=== PATIENT | female | born 1950 | race Caucasian/White ===

== ENCOUNTER 2024-12-20 15:55 | Inpatient (IN) ==
[2024-12-20] MEDS ORDERED: SODIUM CHLORIDE 0.9% 100 ML IV PRN ×2 (16:28→17:59)
--- NOTE | 2024-12-20 16:33 | Electrocardiogram Report ---
Test Reason : Blood Pressure : */* mmHG Vent. Rate : 75 BPM Atrial Rate : 75 BPM P-R Int : 246 ms QRS Dur : 88 ms QT Int : 400 ms P-R-T Axes : 44 1 1 degrees QTcB Int : 446 ms Sinus rhythm with 1st degree A-V block T-wave inversion in Anterior leads , consider ischemia Abnormal ECG No previous ECGs available Confirmed by Everardo Osman ([id number]) on 12/20/2024 4:33:19 PM Referred By: Confirmed By: Everardo Osman
[2024-12-20 16:37] LABS: Basophils # (auto) 0.02 K/uL (0.00-0.20); Basophils % (auto) 0.6 %; Eosinophils # (auto) 0.08 K/uL (0.00-0.50); Eosinophils % (auto) 2.3 %; Hematocrit (blood only) 24.2 % (37.0-47.0); Hemoglobin 7.3 g/dl (12.0-16.0); Immature Granulocytes # (auto) 0.01 K/uL (0.01-0.20); Immature Granulocytes % (auto) 0.3 %; Lymphocytes # (auto) 0.58 K/uL (1.20-3.40); Lymphocytes % (auto) 16.6 %; Mean Corpuscular Hemoglobin 26.9 pg (25.0-34.0); Mean Corpuscular Hgb Conc 30.2 g/dL (32.0-36.0); Mean Corpuscular Volume 89.3 fL (80.0-100.0); Mean Platelet Volume 9.5 fL (9.4-12.4); Monocytes % (auto) 5.7 %; Neutrophils % (auto) 74.5 %; Platelet Count 174 K/uL (130-400); RDW Coefficient of Variation 17.9 % (11.5-14.5); RDW Standard Deviation 57.6 fL (36.4-46.3); Red Blood Count 2.71 M/uL (4.20-5.40); White Blood Count 3.49 K/ul (4.8-10.8)
[2024-12-20 16:58] LABS: Albumin Globulin Ratio 1.1 (0.9-2); Albumin Level 3.7 gm/dl (3.4-5.0); BUN Creatinine Ratio 19.2 (10-20); Bilirubin,Total 0.6 mg/dl (0.2-1.0); Calcium 8.8 mg/dl (8.6-10.3); Creatinine Clr Calc Pharmacy 29.7 ml/min; Globulin 3.5 gm/dl (2.5-4.0); Potassium 3.8 mmol/L (3.5-5.1); Total Protein 7.2 gm/dl (6.0-8.3)
[2024-12-20 16:59] LABS: Polychromasia 1+; Tear Drop Cells 1+
[2024-12-20 17:04] LABS: Troponin I High Sensitivity 3.9 pg/ml (0-14)
[2024-12-20 17:14] LABS: INR 1.1 (0.9-1.1); Partial Thromboplastin Ratio 0.9; Partial Thromboplastin Time 25 Seconds (21-31); Prothrombin Time 11.4 Seconds (9.0-12.0)
--- NOTE | 2024-12-20 17:29 | Emergency Department Note ---
Impression & Plan Severe anemia, SOB (shortness of breath) ED Provider Note NAME: BRIONNA MEREDITH AGE: 74 SEX: Female INFORMANT: Patient ED PROVIDER(S): Werner Morales MD CHIEF COMPLAINT: Shortness of breath PLAN: Disposition: Admitted Outpatient prescription management: none Referral: None MEDICAL DECISION MAKING: Patient presented because of low hemoglobin. This was confirmed. Patient was consented for packed red blood cell transfusion. She has a borderline BNP but cardiac troponin negative. ECG did reveals anterior T wave inversion. Patient does not have any chest pain. Her symptoms are mostly with exertion and she notes that is increasing. 1 unit of packed red blood cells ordered after patient consented. Consultation was made with the [facility] service. Patient was evaluated in the ER and admitted for further management. Care/management discussed with: ED case management Level of care consideration(s): After review of the information above and other included data, I feel the patient requires escalation of care to admission Triage Nursing notes: reviewed and agree them. Vital Signs: reviewed and remarkable for hypertension Additional History obtained from: none Chronic Medical/Social Conditions affecting care: CKD Prior/ Outside/ External records reviewed: none Differential Diagnosis: Infection, dehydration, metabolic abnormality, hypo/hyperglycemia, electrolyte disturbance, anemia, hypoxia, cardiac sources, intracerebral event, toxicologic, neurologic, as well as other pathologies. Diagnostics, independently interpreted by me: ECG: Twelve-lead ECG was sinus rhythm first-degree block. Anterior T wave inversion. RSR prime pattern present. Rate 75 bpm. Cardiac Monitoring: Cardiac monitoring ordered by me: The patient was placed on continuous cardiac monitoring and observed. It revealed a sinus rhythm at 82 bpm. Medical decision rules: none Imaging studies: Chest x-ray done as an outpatient reviewed and reveals some mild CHF without evidence of pneumothorax or pneumonia HPI: 74 year old Female arrives for evaluation of SOB. This started several months ago and is gradual. PCP found patient to be anemic and had heme positive stool. Patient was on xarelto for PE from 15 yrs ago and this was stopped 09/10. The patient also notes the following associated symptoms, LOVE,, chills, generalized weakness, occasional neck/jaw cramping. The patient has found no relieving factors. Current pain is rated as 0/10. Pt had outpatient labs done and found to be more anemic with hgb dropping from 8.2 to 7.0 Pt denies LOC, headache, fevers, chills, diaphoresis, visual changes, chest pain, nausea, vomiting, abdominal pain, back pain, melena, hematochezia, urinary symptoms, numbness, weakness, lymphadenopathy, rash, or other complaints. PAST MEDICAL HISTORY: See Below, PE, CKD PAST SURGICAL HISTORY: See Below, SOCIAL HISTORY: See Below, retired HOME MEDICATIONS: See Below ALLERGIES: See Below VITALS: See Below PHYSICAL EXAMINATION: GENERAL: Awake, alert, well-appearing, in no distress HENT: Normocephalic, atraumatic. Oropharynx unremarkable. EYES: Pale conjunctiva. Sclera non-icteric. NECK: Inspection normal. Non-tender. Supple. No nuchal rigidity. FROM. No masses. RESPIRATORY: Clear to auscultation. No wheezes. No rales. Normal respiratory effort. CARDIAC: Normal rate. Normal rhythm. No murmurs. No rubs. Extremities warm and well perfused. Pulses equal. No JVD. GI: Soft, non-distended. No tenderness to palpation. No rebound or guarding. No masses. RECTAL: Deferred. MUSCULOSKELETAL: Atraumatic. Chest examination reveals no tenderness. The back is symmetrical on inspection without obvious abnormality. There is no CVA tenderness to palpation. No joint edema. LOWER EXTREMITIES: Calves are equal size bilaterally and non-tender. No edema. No discoloration. NEURO: Normal sensorium. No sensory or motor deficits noted. SKIN: No rash or jaundice noted. PROCEDURES: none CRITICAL CARE: none OBSERVATION NOTE: none Past Med/Surg History Problem List (Updated 12/21/24 @ 17:06 by Eliazar Silvestre MD) Bone lesion Iron deficiency Dyspnea Blood loss anemia SOB (shortness of breath) (Acute) Severe anemia (Acute) SOB (shortness of breath) Encounter for pre-operative examination Heme positive stool Anemia Hypertension CKD (chronic kidney disease) Medical History SOB (shortness of breath) on exertion Factor 5 Leiden mutation, heterozygous per pt., tested after having pulm. embolism in past Arthritis Urinary incontinence Hx pulmonary embolism aprox 15 years ago- had pos genetic testing - on xarelto- , - stopped in aug 2024 -no clots since Hx of flexible sigmoidoscopy Anemia Hypertension CKD (chronic kidney disease) Heme positive stool Surgical History Hx of cardiac catheterization x2 "many years ago" [place]- no ID- no stents [place]- no ID- no stents last one found showed slight blockages but told it was due to age. no longer sees cardio (can't remember name) History of surgery on lower extremity (2016) hematoma removed, after fall Hx of tonsillectomy (1957) Hx of laparoscopy x2, 40 years ago Family History Father Stroke Mother Breast cancer Colorectal cancer Denies family history of Crohn's disease Ulcerative colitis Social History (Updated 09/16/24 @ 15:03 by Negro Zee MA) Smoking Status: Never smoker Second Hand Exposure: No; Do You Dip or Chew Tobacco: No; Hx Alcohol Use: No Hx Substance Use: No Preferred Language: Malawian Communication Ability: Effective Livestock Counter Required: No Beliefs That Will Affect Care: None Current Living Situation: Alone Current Living Situation Comment: Lives alone with cat Other Information That Helps Us Care for You: No Feels Safe at Home: Yes Safety Concerns: Feels Safe At This Time Assistive Devices: Cane Allergies Allergies Allergy/AdvReac Type Severity Reaction Status Date / Time No Known Allergies Allergy Verified 12/20/24 18:03 Home Meds Home Medications Medication Instructions Recorded Confirmed cholecalciferol (vitamin D3) 50 50 mcg PO DAILY 09/16/24 12/20/24 mcg (2,000 unit) capsule folic acid 1 mg tablet 1 mg PO DAILY 09/16/24 12/20/24 losartan 50 mg tablet 50 mg PO QAM 09/16/24 12/20/24 acetaminophen 650 mg 1,300 mg PO Q12H PRN Pain 12/10/24 12/20/24 tablet,extended release cyanocobalamin (vitamin B-12) 5,000 mcg sublingual DAILY 12/20/24 12/20/24 5,000 mcg sublingual tablet (Vitamin B-12) Results & Data (ED) Vital Signs Vital Signs - 24 hr 12/20/24 16:05 12/20/24 16:06 12/20/24 16:49 Temperature 36.8 C Temperature Source Temporal Artery Scan Pulse Rate 77 77 Pulse Rate [Left Brachial] Pulse Rhythm [Left Brachial] Pulse Strength [Left Brachial] Respiratory Rate 20 Respiratory Effort / Characteristics Non-Labored Respiratory Depth Normal Respiratory Pattern Blood Pressure 111/61 Blood Pressure [Right Arm] Blood Pressure Mean 77 Blood Pressure Mean [Right Arm] Blood Pressure Position [Right Arm] Pulse Oximetry 97 Oxygen Delivery Method Room Air Room Air Sepsis Recent Fever Within 48 Hours No Sepsis New/Unexplained Change in Mental Status No Sepsis Action Taken by Nursing No Action Required 12/20/24 17:55 12/20/24 19:30 12/20/24 20:00 Temperature 36.7 C 36.7 C Temperature Source Oral Oral Pulse Rate 73 76 Pulse Rate [Left Brachial] 73 Pulse Rhythm [Left Brachial] Regular Pulse Strength [Left Brachial] Normal Respiratory Rate 18 24 24 Respiratory Effort / Characteristics Non-Labored Respiratory Depth Normal Respiratory Pattern Regular Blood Pressure 165/64 H 147/89 H Blood Pressure [Right Arm] 165/64 H Blood Pressure Mean 97 108 Blood Pressure Mean [Right Arm] 97 Blood Pressure Position [Right Arm] Lying Pulse Oximetry 97 95 97 Oxygen Delivery Method Room Air Sepsis Recent Fever Within 48 Hours Sepsis New/Unexplained Change in Mental Status Sepsis Action Taken by Nursing 12/20/24 20:15 Temperature 36.7 C Temperature Source Oral Pulse Rate 75 Pulse Rate [Left Brachial] Pulse Rhythm [Left Brachial] Pulse Strength [Left Brachial] Respiratory Rate 23 Respiratory Effort / Characteristics Respiratory Depth Respiratory Pattern Blood Pressure 124/73 Blood Pressure [Right Arm] Blood Pressure Mean 90 Blood Pressure Mean [Right Arm] Blood Pressure Position [Right Arm] Pulse Oximetry 98 Oxygen Delivery Method Sepsis Recent Fever Within 48 Hours Sepsis New/Unexplained Change in Mental Status Sepsis Action Taken by Nursing Laboratory Data 12/21/24 06:30 12/21/24 06:30 Lab Results 12/20/24 12/20/24 12/20/24 Range/Units 16:20 16:45 17:00 WBC 3.49 L (4.8-10.8) K/ul RBC 2.71 L (4.20-5.40) M/uL Hgb 7.3 L (12.0-16.0) g/dl Hct 24.2 L (37.0-47.0) % MCV 89.3 (80.0-100.0) fL MCH 26.9 (25.0-34.0) pg MCHC 30.2 L (32.0-36.0) g/dL RDW Std Deviation 57.6 H (36.4-46.3) fL RDW Coeff of Norma 17.9 H (11.5-14.5) % Plt Count 174 (130-400) K/uL MPV 9.5 (9.4-12.4) fL Immature Gran % (Auto) 0.3 % Neut % (Auto) 74.5 % Lymph % (Auto) 16.6 % Major % (Auto) 5.7 % Eos % (Auto) 2.3 % Baso % (Auto) 0.6 % Neut # (Auto) 2.60 (1.40-6.50) K/uL Lymph # (Auto) 0.58 L (1.20-3.40) K/uL Major # (Auto) 0.20 (0.11-0.59) K/uL Eos # (Auto) 0.08 (0.00-0.50) K/uL Baso # (Auto) 0.02 (0.00-0.20) K/uL Immature Gran # (Auto) 0.01 (0.01-0.20) K/uL Polychromasia 1+ Tear Drop Cells 1+ PT 11.4 (9.0-12.0) Seconds INR 1.1 (0.9-1.1) APTT 25 (21-31) Seconds PTT Ratio 0.9 D-Dimer 4600 H* (0-500) ug/L FEU Sodium 140 (136-145) mmol/L Potassium 3.8 (3.5-5.1) mmol/L Chloride 110 H (98-107) mmol/L Carbon Dioxide 21 (21-32) mmol/L Anion Gap 9 (3-11) BUN 41 H (6-23) mg/dl Creatinine 2.13 H (0.6-1.2) mg/dl Est Cr Clr Drug Dosing 29.7 ml/min eGFR 23.71 BUN/Creatinine Ratio 19.2 (10-20) Glucose 148 H (70-99(Fasting)) mg/dl Calcium 8.8 (8.6-10.3) mg/dl Total Bilirubin 0.6 (0.2-1.0) mg/dl AST 13 (13-39) U/L ALT 6 L (7-52) U/L Alkaline Phosphatase 193 H (34-104) U/L Troponin I High Sens 3.9 (0-14) pg/ml B-Natriuretic Peptide 138 H (0-100) pg/ml Total Protein 7.2 (6.0-8.3) gm/dl Albumin 3.7 (3.4-5.0) gm/dl Globulin 3.5 (2.5-4.0) gm/dl Albumin/Globulin Ratio 1.1 (0.9-2) Blood Type O Negative Blood Type Recheck Antibody Screen NEGATIVE Crossmatch See Detail 12/20/24 Range/Units 17:15 WBC (4.8-10.8) K/ul RBC (4.20-5.40) M/uL Hgb (12.0-16.0) g/dl Hct (37.0-47.0) % MCV (80.0-100.0) fL MCH (25.0-34.0) pg MCHC (32.0-36.0) g/dL RDW Std Deviation (36.4-46.3) fL RDW Coeff of Norma (11.5-14.5) % Plt Count (130-400) K/uL MPV (9.4-12.4) fL Immature Gran % (Auto) % Neut % (Auto) % Lymph % (Auto) % Major % (Auto) % Eos % (Auto) % Baso % (Auto) % Neut # (Auto) (1.40-6.50) K/uL Lymph # (Auto) (1.20-3.40) K/uL Major # (Auto) (0.11-0.59) K/uL Eos # (Auto) (0.00-0.50) K/uL Baso # (Auto) (0.00-0.20) K/uL Immature Gran # (Auto) (0.01-0.20) K/uL Polychromasia Tear Drop Cells PT (9.0-12.0) Seconds INR (0.9-1.1) APTT (21-31) Seconds PTT Ratio D-Dimer (0-500) ug/L FEU Sodium (136-145) mmol/L Potassium (3.5-5.1) mmol/L Chloride (98-107) mmol/L Carbon Dioxide (21-32) mmol/L Anion Gap (3-11) BUN (6-23) mg/dl Creatinine (0.6-1.2) mg/dl Est Cr Clr Drug Dosing ml/min eGFR BUN/Creatinine Ratio (10-20) Glucose (70-99(Fasting)) mg/dl Calcium (8.6-10.3) mg/dl Total Bilirubin (0.2-1.0) mg/dl AST (13-39) U/L ALT (7-52) U/L Alkaline Phosphatase (34-104) U/L Troponin I High Sens (0-14) pg/ml B-Natriuretic Peptide (0-100) pg/ml Total Protein (6.0-8.3) gm/dl Albumin (3.4-5.0) gm/dl Globulin (2.5-4.0) gm/dl Albumin/Globulin Ratio (0.9-2) Blood Type Blood Type Recheck O Negative Antibody Screen Crossmatch Administered Medications Acetaminophen (Acetaminophen 325 Mg Tab) 650 mg PO Q4H PRN PRN Reason: Pain or Fever Stop: 01/19/25 21:51 Last Admin: 12/21/24 15:48 Dose: 650 mg Documented By: [facility] Cyanocobalamin (Cyanocobalamin (B-12) 2,500 Mcg Tablet) 5,000 mcg SL DAILY GUSTAVO Stop: 01/20/25 08:59 Last Admin: 12/21/24 09:04 Dose: 5,000 mcg Documented By: [facility] Folic Acid (Folic Acid 1 Mg Tab) 1 mg PO DAILY GUSTAVO Stop: 01/20/25 08:59 Last Admin: 12/21/24 09:05 Dose: 1 mg Documented By: [facility] Magnesium Hydroxide (Magnesium Hydroxide Susp 30 Ml Udc) 30 ml PO Q12H PRN PRN Reason: Constipation Stop: 01/19/25 21:51 Last Admin: 12/21/24 15:51 Dose: 30 ml Documented By: [facility] Rivaroxaban (Rivaroxaban 15 Mg Tab) 15 mg PO QDD GUSTAVO Stop: 01/20/25 14:29 Last Admin: 12/21/24 15:57 Dose: 15 mg Documented By: [facility] Vitamin D (Cholecalciferol 25 Mcg (1000 Units) Tab) 50 mcg PO DAILY GUSTAVO Stop: 01/20/25 08:59 Last Admin: 12/21/24 09:05 Dose: 50 mcg Documented By: EVELIA Discontinued Medications Furosemide (Furosemide 40 Mg/4 Ml Vial) 40 mg IV Q12H [facility] Stop: 01/20/25 14:29 Last Admin: 12/21/24 14:59 Dose: 40 mg Documented By: EVELIA Heparin Sodium (Porcine) (Heparin Sod (Porcine) 1000 Unit/Ml) 7,000 units IV NOW ONE Stop: 12/20/24 20:16 Last Admin: 12/20/24 20:13 Dose: 7,000 units Documented By: ANGELIKA Co-signed By: HAY Heparin Sodium/Dextrose (Heparin Iv Adult Wt-Based Standard W/ Initial Bolus Protocol) 1 each IV NOW STA; Protocol Stop: 12/20/24 18:50 Last Admin: 12/20/24 20:15 Dose: Not Given Documented By: ANGELIKA Heparin Sodium/Dextrose (Heparin 75398 Unit/500 Ml D5w) 25,000 units in 500 mls @ 30 mls/hr IV .[id number] [facility]; Protocol Stop: 01/19/25 19:14 Last Titration: 12/21/24 15:03 Dose: Infused Documented By: EVELIA Co-signed By: APR Admin: 12/21/24 12:21 Dose: 1,500 units/hr, 30 mls/hr Documented By: EVELIA Co-signed By: CATRACHO Titration: 12/21/24 12:21 Dose: Infused Documented By: EVELIA Co-signed By: CATRACHO Titration: 12/21/24 07:14 Dose: 1,500 units/hr, 30 mls/hr Documented By: EVELIA Co-signed By: TIFFANIE Titration: 12/21/24 02:11 Dose: 1,500 units/hr, 30 mls/hr Documented By: TIFFANIE Co-signed By: MIRYAM Admin: 12/20/24 20:07 Dose: 1,500 units/hr, 30 mls/hr Documented By: ANGELIKA Co-signed By: HAY Iron Sucrose 300 mg/ Sodium (Chloride) 265 mls @ 176.667 mls/hr IV TODAY@0900 ONE Stop: 12/21/24 10:29 Last Infusion: 12/21/24 12:17 Dose: Infused Documented By: Admin: 12/21/24 09:49 Dose: 176.7 mls/hr Documented By: EVELIA Sodium Chloride (Nss) 1,000 mls @ 80 mls/hr IV .[id number] [facility] Stop: 12/22/24 12:14 Last Infusion: 12/21/24 15:03 Dose: Infused Documented By: Admin: 12/21/24 12:18 Dose: 80 mls/hr Documented By: EVELIA Ioversol (Optiray 320 125ml) 119 ml IV ONCE ONE Stop: 12/21/24 12:29 Last Admin: 12/21/24 12:28 Dose: 119 ml Documented By: EDK Discharge Plan Visit Data Chief Complaint: Shortness of Breath/Dyspnea Stated Complaint: HEMOGLOBIN 7, POSSIBLE BLOOD CLOT ED Provider: Werner Morales Discharge Problem: Severe anemia, SOB (shortness of breath) Patient Disposition: Admitted As Inpatient Discharge Instructions Interventions: ED Discharge Assessment Last Done: 12/20/24 21:02
--- NOTE | 2024-12-20 18:13 | History & Physical Report ---
Date of Service December 20, 2024 Assessment & Plan (1) Dyspnea: Plan: Progressively worsening dyspnea with exertion in pt w/ history of PE d/t factor V leiden - Admit to tele - Regular diet as tolerated - VS per unit protocol - DDimer ordered STAT - results = 4600 - Pt not an ideal candidate for CTA chest d/t renal insufficiency (creat 2.13) - Treat for high likelihood of acute PE with high risk factors - Heparin gtt with bolus ordered - Serial H&H - Venous dopplers ordered by ED physician (2) Blood loss anemia: Plan: Chronic blood loss anemia with unknown source - Recent UGI and colonoscopy negative for obvious bleeding source - Iron 32, TIBC 258, transferrin 184 and ferritin 217 - Would benefit from small bowel camera capsule endoscopy - will require GI follow up to set up - CBC reviewed, hgb 7.3 today, reasonable to transfuse 1 unit of PRBCs - Repeat H&H following transfusion and again AM (3) Hypertension: Plan: Chronic - BP well controlled, continue losartan - F/u with pcp (4) CKD (chronic kidney disease): Plan: Chronic - Creatinine 2.13 today, trend with repeat chemistry in AM - Unknown renal function baseline - Avoid nephrotoxic meds Plan DVT ppx will be covered with Heparin treatment as outlined above. Will require lifelong anticoagulation. AM labs have been ordered including cbc, cmp, and mag. PT/OT eval and treat. Above plan of care has been d/w Dr. Green who will also see and evaluate this patient. Further orders to be implemented as clinically warranted. History of Present Illness Chief Complaint: Dyspnea and abnormal labs Primary Care Provider: Jolynn Pineda is a 74 yo F with a pmhx of CKD, HTN, and Factor V Leiden mutation with h/o PE 15 yrs ago previously on Xarelto which was discontinued in August of 2024 who presents to the ER today per provider recommendation due to abnormal labs and dyspnea. She reports that her Xarelto was discontinued by her PCP in August due to new anemia. Pt thinks that she may have been experiencing some mild dyspnea at that time but isn't certain. She was referred to GI and underwent an EGD and colonoscopy in November 2024 here at [facility]. No obvious source of bleeding, she was noted to have polyps. She was seen today for f/u at the GI office and discussed doing a small bowel camera capsule but no definitive decision made regarding this. She has since been off of her Xarelto and she admits that she is not very mobile. She uses a cane to ambulate around her mobile home. GI had recommended that she start taking iron supplementation at her appointment today. She was also reporting worsening dyspnea with exertion for which a CXR was performed. Repeat labs were obtained with a hemoglobin of 7.0 and she was encouraged to go to the ER for further work up. Repeat hgb is 7.3. She has been typed and crossmatched for 1 unit of PRBCs. She reports feelings of her chest feeling "heavy" but denies overt chest pain. Her creatinine is 2.13 with unknown baseline. ER ordered bilateral venous dopplers and has referred to hospital medicine team for admission. Allergies Allergy/AdvReac Type Severity Reaction Status Date / Time No Known Allergies Allergy Verified 12/20/24 18:03 Home Medications Medication Instructions Recorded Confirmed Type cholecalciferol (vitamin D3) 50 50 mcg PO DAILY 09/16/24 12/20/24 History mcg (2,000 unit) capsule folic acid 1 mg tablet 1 mg PO DAILY 09/16/24 12/20/24 History losartan 50 mg tablet 50 mg PO QAM 09/16/24 12/20/24 History acetaminophen 650 mg 1,300 mg PO Q12H PRN Pain 12/10/24 12/20/24 History tablet,extended release cyanocobalamin (vitamin B-12) 5,000 mcg sublingual DAILY 12/20/24 12/20/24 History 5,000 mcg sublingual tablet (Vitamin B-12) Past Med/Surg History Problem List (Updated 12/20/24 @ 18:53 by Olena Hollins PA-C) Dyspnea Blood loss anemia SOB (shortness of breath) (Acute) Severe anemia (Acute) SOB (shortness of breath) Encounter for pre-operative examination Heme positive stool Anemia Hypertension CKD (chronic kidney disease) Medical History SOB (shortness of breath) on exertion Factor 5 Leiden mutation, heterozygous per pt., tested after having pulm. embolism in past Arthritis Urinary incontinence Hx pulmonary embolism aprox 15 years ago- had pos genetic testing - on xarelto- , - stopped in aug 2024 -no clots since Hx of flexible sigmoidoscopy Anemia Hypertension CKD (chronic kidney disease) Heme positive stool Surgical History Hx of cardiac catheterization x2 "many years ago" [place]- [place]- [place] stents [place]- [place]- no stents last one found showed slight blockages but told it was due to age. no longer sees cardio (can't remember name) History of surgery on lower extremity (2016) hematoma removed, after fall Hx of tonsillectomy (1957) Hx of laparoscopy x2, 40 years ago Family History Father Stroke Mother Breast cancer Colorectal cancer Denies family history of Crohn's disease Ulcerative colitis Social History (Updated 09/16/24 @ 15:03 by Negro Zee MA) Smoking Status: Never smoker Second Hand Exposure: No; Do You Dip or Chew Tobacco: No; Hx Alcohol Use: Yes Hx Substance Use: No Preferred Language: Namibian Communication Ability: Effective Corporate Services Manager Required: No Beliefs That Will Affect Care: None Current Living Situation: Alone Feels Safe at Home: Yes Assistive Devices: Cane and Wheelchair Review of Systems 2 Review of Systems: All systems reviewed and are unremarkable except as noted in HPI and below. Denies fever, chills, headache, nasal congestion, sore throat, cough, chest pain, palpitations, orthopnea, PND, abdominal pain, n/v/d, constipation, dysuria, hematuria, frequency, back pain, joint pain or swelling, easy bruising or bleeding, skin lesions or rashes. Physical Exam 2 Physical Exam: GENERAL: 74 yo obese elderly WF. No distress. EYES: EOMI. PERRLA. Anicteric. HENT: Moist mucous membranes. No cervical lymphadenopathy. LUNGS: Nonlabored. Diminished in bases bilaterally. CARDIOVASCULAR: Regular rate and rhythm with 4/6 BRIAN. ABDOMEN: Soft, non-tender and non-distended. Bowel sounds normoactive x 4 quad. EXTREMITIES: No edema. Non-tender. Peripheral pulses +2/4. NEUROLOGIC: A&O x3. No focal neurological deficits. CN II-XII grossly intact. PSYCHIATRIC: Cooperative. Appropriate mood and affect. SKIN: Warm, dry, intact. No rashes or lesions. Results & Data Results & Data Vital Signs (Past 12 Hours) Vital Signs Temp Pulse Resp BP Pulse Ox O2 Del Method 12/20/24 16:49 77 12/20/24 16:06 36.8 C 77 20 111/61 97 Room Air 12/20/24 16:05 Room Air Laboratory Results 12/20/24 16:20 12/20/24 16:20 Diagnostic Findings CXR images reviewed - trace to small bilateral pleural effusions noted. Code Status & VTE Plan Code Status Full code - confirmed with pt at bedside Supervising Physician Co-Signing Physician Notes I personally examined the patient and verified all chacon points of history and exam, discussed case, and agree with decision making with Juan C MCCARTHY LOVE for months - progressive. Ongoing probably for months. Has been getting worse. Predominantly dyspnea on exertion but also a degree of chest pressure with exertion that has been slowly getting worse, associated with worsening muscle weakness/fatigue. She thought at first it was just related to working through a lot of pain from her sciatica, but as it has progressed she wondered about further etiologies. Her PCP has been working her up for anemia, and she has had a fairly extensive endoscopic workup, small bowel studies to be done once able but otherwise her workup has been negative. Also notes occasionally hearing a whooshing sound in her ears. Vitals noted, in general she is awake and alert pleasant no distress. HEENT normocephalic atraumatic mucous membranes moist. Cardio is regular she does have a systolic murmur best at the left upper sternal border. Lungs overall clear no rales rhonchi or wheezes. Abdomen soft nondistended nontender no masses organomegaly. Skin appears to be mild pallor although I do not know her from before. Labs and diagnostics noted. Dyspnea on exertionprobably multifactorial. I suspect her anemia plays a role, I wonder about aortic stenosis given her murmur (and this obviously would be compounded by the anemia playing off of each other), I think her exertional dyspnea from her sciatica probably does play a role, her morbid obesity with a BMI of 44.2 probably plays a role, and given that she has had prior PE and we currently cannot rule out PE (and she would prefer to be back on anticoagulation anyway) it is somewhat hard to not treat as though VTE is playing a role as well. See below for each individual component anemiabiggest suspicion would be some degree of small bowel blood loss, but also could just be iron deficiency/hypoproliferative. She is getting a unit transfusionI discussed with her that this will be a good barometer on how much her anemia is causing her dyspnea on exertion given that it is the only piece of her potential causes of dyspnea that would have essentially an overnight change. Ongoing workup as an outpatient as long as hemoglobin stays stable after transfusion. iron studies noted. check B12 given mild leukopenia as well murmurif she has aortic stenosis, certainly this combined with anemia could be perpetuating factor for dyspnea on exertion. Check an echocardiogram prior VTE with elevated D-dimerwhile she is not tachycardic or hypoxic, it is really hard to rule out PE. She certainly would prefer to be back on an anticoagulant as well. We discussed risk benefit with this in the context of her anemiaand for now we will start on a heparin drip given that it could be immediately reversible and stops quickly when it is turned off. If she shows no bleeding/hemoglobin improves appropriately with transfusion and stays stable while on heparin drip, then it would be safe to transition her back to a DOAC CKDprobably stage III I do not have baseline labs to compare but she does relate having some degree of chronic kidney disease. Given that we do not know her baseline we will hold her losartan for now. Otherwise as above PG Care Time/CCT Total # of Minutes Spent Total Time Spent with Patient: Total time spent is greater than 50% in coordination of care (as documented) at patient's floor/unit and/or counseling patient: 80 minutes Coding Level of Care Code 51404 INT INP/OBS CARE 3/75MIN Diagnoses Dyspnea on exertion R06.09 Dyspnea type: dyspnea on exertion Blood loss anemia D50.0 Hypertension I10 CKD (chronic kidney disease) N18.9 (1) Dyspnea Dyspnea type: dyspnea on exertion Qualified Code(s): R06.09 - Other forms of dyspnea
[2024-12-20 18:48] LABS: D Dimer 4600 ug/L FEU (0-500)
[2024-12-20] MEDS ORDERED: HEPARIN SOD (PORCINE) 1000 UNIT/ML IV ONE (19:04)
[2024-12-20] MEDS: HEPARIN 25000 UNIT/500 ML D5W 25,000 UNITS/500 ML BAG IV SCH (20:07)
[2024-12-20] MEDS: HEPARIN SOD (PORCINE) 1000 UNIT/ML IV ONE (20:13)
[2024-12-20] MEDS: Heparin IV Adult Wt-Based Standard w/ INITIAL Bolus Protocol IV STA (20:15)
[2024-12-20] MEDS ORDERED: ALUMINUM/MAGNESIUM SUSP 30 ML UDC PO PRN (21:52)
[2024-12-20] MEDS ORDERED: ONDANSETRON INJ 2 MG/ML 2 ML VIAL IV PRN (21:52)
[2024-12-21 01:28] LABS: Hematocrit (blood only) 26.2 % (37.0-47.0); Hemoglobin 8.1 g/dl (12.0-16.0)
[2024-12-21 02:02] LABS: ANTI-Xa, UFH(UnfractionatedHep 0.46 IU/ml (0.3-0.7)
[2024-12-21 07:01] LABS: Basophils # (auto) 0.03 K/uL (0.00-0.20); Basophils % (auto) 0.8 %; Eosinophils # (auto) 0.15 K/uL (0.00-0.50); Eosinophils % (auto) 3.9 %; Hematocrit (blood only) 25.9 % (37.0-47.0); Hemoglobin 7.9 g/dl (12.0-16.0); Immature Granulocytes # (auto) 0.02 K/uL (0.01-0.20); Immature Granulocytes % (auto) 0.5 %; Lymphocytes % (auto) 18.2 %; Mean Corpuscular Hgb Conc 30.5 g/dL (32.0-36.0); Mean Corpuscular Volume 88.4 fL (80.0-100.0); Mean Platelet Volume 9.9 fL (9.4-12.4); Monocytes # (auto) 0.28 K/uL (0.11-0.59); Monocytes % (auto) 7.3 %; Neutrophils # (auto) 2.66 K/uL (1.40-6.50); Neutrophils % (auto) 69.3 %; Platelet Count 173 K/uL (130-400); RDW Coefficient of Variation 17.3 % (11.5-14.5); RDW Standard Deviation 56.1 fL (36.4-46.3); Red Blood Count 2.93 M/uL (4.20-5.40); White Blood Count 3.84 K/ul (4.8-10.8)
[2024-12-21 07:19] LABS: BUN Creatinine Ratio 20.3 (10-20); Creatinine Clr Calc Pharmacy 33.8 ml/min; Magnesium 2.1 mg/dl (1.7-2.4); Potassium 4.6 mmol/L (3.5-5.1)
[2024-12-21 07:33] LABS: Ovalocytes 1+; Polychromasia 1+; Tear Drop Cells 1+
[2024-12-21 07:39] LABS: ANTI-Xa, UFH(UnfractionatedHep 0.38 IU/ml (0.3-0.7)
[2024-12-21] MEDS: CYANOCOBALAMIN (B-12) 2,500 MCG TABLET SL SCH (09:04)
[2024-12-21] MEDS: CHOLECALCIFEROL 25 MCG (1000 UNITS) TAB PO SCH (09:05)
[2024-12-21] MEDS: FOLIC ACID 1 MG TAB PO SCH (09:05)
[2024-12-21] MEDS: IRON SUCROSE 300 MG in SODIUM CHLORIDE 0.9% 250 ML IV ONE (09:49)
[2024-12-21] MEDS: SODIUM CHLORIDE 0.9% 1,000 ML IV SCH (12:18)
[2024-12-21] MEDS: OPTIRAY 320 125ml IV ONE (12:28)
--- NOTE | 2024-12-21 12:31 | Hospitalist Progress Note ---
Date of Service December 21, 2024 Assessment & Plan (1) Dyspnea: Plan: Probably related to iron deficiency anemia. Acute pulmonary embolism needs to be ruled out since she has factor V Leiden deficiency and her Xarelto was stopped months ago. Chest CTA is pending. Bilateral lower extremity venous Dopplers were done and report is pending. (2) Iron deficiency: Plan: Parenteral iron replacement underway. She denies overt melena or hematochezia (3) Blood loss anemia: Plan: Chronic blood loss anemia with unknown source. Apparently this was diagnosed as an outpatient. Recent UGI and colonoscopy negative for obvious bleeding source. She received a blood transfusion on admission for hemoglobin 7.0. Serial labs (4) Hypertension: Plan: Stable. Continue current medical management (5) CKD (chronic kidney disease): Plan: Creatinine 2.1 on admission. Improved to 1.8 today, January 20. She is agreeable to undergo chest CTA understanding she will receive intravenous contrast which could worsen her renal function. IV fluids ordered as a precaution. Plan Hopeful discharge to home tomorrow, December 22 Admission and Anticipated Discharge Date Admission Date: December 20, 2024 Subjective The patient was complaining of dyspnea on exertion on admission. She is markedly anemic with iron deficiency. Hemoglobin was 7 on admission and she received 1 unit packed red blood cells and hemoglobin improved to 8.1. Hemoglobin 7.9 today, December 21. No overt melena or hematochezia. She has a history of factor V Leiden deficiency and her Xarelto was discontinued last August. Creatinine was mildly elevated on admission and has improved to 1.8. She agrees to undergo chest CTA evaluation to rule out underlying PE. Iron levels are also low and she is receiving parenteral iron replacement. Fecal occult blood ordered and pending. Bilateral leg vein Dopplers ordered by the admitting physician were done but report is pending. Hopefully she can go home tomorrow, December 22 Review of Systems 2 Review of Systems: Constitutionalno fever or chills ENTno blurred vision, no double vision, no epistaxis, no sore throat Respiratoryno cough, no wheezing. Dyspnea on exertion Cardiacno palpitations, no chest pain, no syncope Jarek nausea, vomiting, diarrhea, melena, hematochezia GUno urinary retention, no urinary incontinence, no dysuria, no hematuria Musculoskeletalno joint pain, no muscle tenderness Skinno bruising, no rashes, no pruritus Neurono isolated weakness, no paresthesia, no weakness Psychno depression, no anxiety Physical Exam 2 Physical Exam: General-alert and oriented x3, no fever, no chills HEENT-head atraumatic and normocephalic, pupils equal and reactive to light, extraocular muscles intact Neck-no lymphadenopathy or thyromegaly, trachea midline Chest-no inspiratory rales or rhonchi. No wheezing. Clear Cardiac-regular rate and rhythm, normal S1 and S2 Abdomen-normal bowel sounds, no hepatosplenomegaly Extremities-no cyanosis, clubbing, or edema Neuro-cranial nerves II through XII intact, motor and sensory function within normal limits, strength symmetrical, no focal deficits Psych-normal affect, normal mood Results & Data Results & Data Vital Signs (Past 12 Hours) Vital Signs Temp Pulse Pulse Resp BP BP Pulse Ox 12/21/24 11:47 36.6 C 60 18 127/78 92 12/21/24 10:11 36.5 C 65 18 116/78 95 12/21/24 09:56 36.6 C 72 18 124/82 94 12/21/24 07:44 36.6 C 62 18 138/82 94 12/21/24 07:00 62 12/21/24 03:57 36.3 C L 74 20 154/70 H 93 O2 Del Method 12/21/24 11:47 Room Air 12/21/24 10:11 Room Air 12/21/24 09:56 Room Air 12/21/24 07:44 Room Air 12/21/24 07:00 12/21/24 03:57 Room Air Laboratory Results 12/21/24 06:30 12/21/24 06:30 PG Care Time/CCT Total # of Minutes Spent Total Time Spent with Patient: Total time spent is greater than 50% in coordination of care (as documented) at patient's floor/unit and/or counseling patient: Coding Level of Care Code 23029 SUB INP/OBS CARE 3/50MIN Diagnoses Dyspnea on exertion R06.09 Dyspnea type: dyspnea on exertion Iron deficiency E61.1 Blood loss anemia D50.0 Hypertension I10 CKD (chronic kidney disease) N18.9 (1) Dyspnea Dyspnea type: dyspnea on exertion Qualified Code(s): R06.09 - Other forms of dyspnea
--- NOTE | 2024-12-21 12:36 | XCELERA ---
[id number]
--- NOTE | 2024-12-21 13:29 | CT Scan Report ---
CT angio chest PE protocol CT DOSE: 840.42 mGy.cm HISTORY: 74 years-old Female with PE. Acute shortness of breath TECHNIQUE: Multiple CTA images of the chest were obtained after the intravenous administration of 119 ml Optiray. Coronal and sagittal MIPS were obtained from the axial data set and were submitted for review. All measurements were obtained according to NASCET criteria. A dose lowering technique was u tilized adhering to the principles of ALARA. COMPARISON: Duplex venous Doppler study 12/20/2024 FINDINGS: CTA: Moderate cardiomegaly. Trace pericardial effusion. Ill-defined dilation of the ascending thoracic aor ta measures 4.4 x 4.2 cm. No dissection. Aberrant course of the right subclavian artery. Dilation of the main pulmonary artery, 3.7 cm. No pulmonary emboli. CT CHEST: No thyroid nodule. Nodular foci within the right axilla with 10 mm right subpectoral lymph node on im age 131. Partially imaged right-sided nipple retraction with periareolar soft tissue thickening and h eterogeneous asymmetry/probable mass in the right mid and upper outer quadrant right breast. No patho logically enlarged mediastinal or hilar lymph nodes. Small to moderate pleural effusions with dependent bibasilar consolidation. No suspicious pulmonary n odules or masses identified. Mild intralobular septal thickening. Central airways are patent. No acut e upper abdominal abnormality. Multifocal mixed osteolytic and osteosclerotic bony metastasis. No def inite acute pathologic fracture identified. IMPRESSION: 1. Partially imaged right breast malignancy with nipple retraction, skin thickening and right axillar y vin metastasis. 2. Multifocal extensive osseous metastasis. 3. No pulmonary emboli. 4. Cardiomegaly with interstitial pulmonary edema, [id number] pleural effusions with bibasilar atelectasis. 5. 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 ACT 112: Positive. There are findings on this exam that require communication between the performing entity and the patient following Patient Test Result Information Act ([place] Act 112) guidelines. The above report was generated using voice recognition software. It may contain grammatical, syntax o r spelling errors. Electronically signed by: Negro Hernandez M.D. 12/21/2024 1:27 PM
[2024-12-21] MEDS: FUROSEMIDE 40 MG/4 ML VIAL IV SCH (14:59)
--- NOTE | 2024-12-21 15:28 | Oncology Consultation ---
Date of Consultation December 21, 2024 Assessment & Plan (1) Bone lesion: Firstly I will recommend a CT-guided biopsy either of the breast mass or one of the bone lesions to establish a diagnosis of malignancy HEAD: No headache, dizziness, or head injury. Once we have a diagnosis I will up further recommendations. Most likely the patient would benefit from palliative systemic treatment. However I believe that to the patient herself. IR can be consulted for management of this patient so that we can obtain biopsy. Rest of the management per my hospital internal medicine colleagues. Plan Thank you for this interesting oncological consult. A total of 60 minutes were spent counseling, coordination of care, review of prior records. History of Present Illness Reason for Consultation: Skeletal metastatic disease concerns for metastatic breast cancer Attending Physician: Abhishek Kaufman MD History of Present Illness the patient is a very pleasant 74-year-old woman who has been admitted with progressive dyspnea. On admission the patient had a CT angiogram of the chest to rule out pulmonary embolism, this revealed that the patient had a primary thoracic mass with diffuse bone lesions.Of note the patient Has had very limited health maintenance including mammograms. Medical oncology has been consulted to assist in management for this patient with suspected metastatic breast cancer. Allergies Allergy/AdvReac Type Severity Reaction Status Date / Time No Known Allergies Allergy Verified 12/20/24 18:03 Home Medications Medication Instructions Recorded Confirmed Type cholecalciferol (vitamin D3) 50 50 mcg PO DAILY 09/16/24 12/20/24 History mcg (2,000 unit) capsule folic acid 1 mg tablet 1 mg PO DAILY 09/16/24 12/20/24 History losartan 50 mg tablet 50 mg PO QAM 09/16/24 12/20/24 History acetaminophen 650 mg 1,300 mg PO Q12H PRN Pain 12/10/24 12/20/24 History tablet,extended release cyanocobalamin (vitamin B-12) 5,000 mcg sublingual DAILY 12/20/24 12/20/24 History 5,000 mcg sublingual tablet (Vitamin B-12) Patient History Medical History SOB (shortness of breath) on exertion Factor 5 Leiden mutation, heterozygous per pt., tested after having pulm. embolism in past Arthritis Urinary incontinence Hx pulmonary embolism aprox 15 years ago- had pos genetic testing - on xarelto- , - stopped in aug 2024 -no clots since Hx of flexible sigmoidoscopy Anemia Hypertension CKD (chronic kidney disease) Heme positive stool Surgical History Hx of cardiac catheterization x2 "many years ago" [place]- [place]- [place] stents [place]- [place]- no stents last one found showed slight blockages but told it was due to age. no longer sees cardio (can't remember name) History of surgery on lower extremity (2016) hematoma removed, after fall Hx of tonsillectomy (1956) Hx of laparoscopy x2, 40 years ago Family History Father Stroke Mother Breast cancer Colorectal cancer Denies family history of Crohn's disease Ulcerative colitis Social History (Updated 09/16/24 @ 15:03 by Negro Zee MA) Smoking Status: Never smoker Second Hand Exposure: No; Do You Dip or Chew Tobacco: No; Hx Alcohol Use: No Hx Substance Use: No Preferred Language: Hungarian Communication Ability: Effective Roll Form Operator Required: No Beliefs That Will Affect Care: None Current Living Situation: Alone Current Living Situation Comment: Lives alone with cat Other Information That Helps Us Care for You: No Feels Safe at Home: Yes Safety Concerns: Feels Safe At This Time Assistive Devices: Cane Review of Systems Review of Systems: All systems reviewed & are unremarkable except as noted in HPI & below Constitutional: as per Subjective / HPI Eyes: as per Subjective / HPI Ear, Nose, Mouth, Throat: as per Subjective / HPI Respiratory: as per Subjective / HPI Cardiovascular: as per Subjective / HPI Gastrointestinal: as per Subjective / HPI Genitourinary: as per Subjective / HPI Musculoskeletal: as per Subjective / HPI Integumentary: as per Subjective / HPI Neurologic: as per Subjective / HPI Psychiatric: as per Subjective / HPI Endocrine: as per Subjective / HPI Hematologic / Lymphatic: as per Subjective / HPI Allergy / Immunological: as per Subjective / HPI Physical Exam Constitutional: WD/WN, vitals as above Eyes: PERRL, conjunctivae normal, anicteric sclerae ENMT: external ear and nose normal, oropharynx normal Neck: trachea midline, no thyromegaly Respiratory: normal respiratory effort, lungs clear to auscultation Cardiovascular: RRR, no murmur, no edema Gastrointestinal (Abdomen): normal bowel sounds, soft, nontender, no hepatosplenomegaly Musculoskeletal: no cyanosis or clubbing, extremities motor strength 5/5 Skin: no rashes, warm and dry Neurologic: patellar DTR's 2+ bilat, sensation intact Results & Data Vital Signs (Past 12 Hours) Vital Signs Temp Pulse Pulse Resp BP BP Pulse Ox 12/21/24 11:47 36.6 C 60 18 127/78 92 12/21/24 10:11 36.5 C 65 18 116/78 95 12/21/24 09:56 36.6 C 72 18 124/82 94 12/21/24 07:44 36.6 C 62 18 138/82 94 12/21/24 07:00 62 12/21/24 03:57 36.3 C L 74 20 154/70 H 93 O2 Del Method 12/21/24 11:47 Room Air 12/21/24 10:11 Room Air 12/21/24 09:56 Room Air 12/21/24 07:44 Room Air 12/21/24 07:00 12/21/24 03:57 Room Air
[2024-12-21] MEDS: ACETAMINOPHEN 325 MG TAB PO PRN (15:48)
[2024-12-21] MEDS: MAGNESIUM HYDROXIDE SUSP 30 ML UDC PO PRN (15:51)
[2024-12-21] MEDS: RIVAROXABAN 15 MG TAB PO SCH (15:57)
[2024-12-21] MEDS ORDERED: Nursing to Pharmacy Communication SCH (19:15)
[2024-12-21 21:08] LABS: Hematocrit (blood only) 24.9 % (37.0-47.0); Hemoglobin 7.7 g/dl (12.0-16.0)
[2024-12-22 06:19] LABS: Hemoglobin 7.1 g/dl (12.0-16.0); Mean Corpuscular Hemoglobin 27.1 pg (25.0-34.0); Mean Corpuscular Hgb Conc 30.9 g/dL (32.0-36.0); Mean Corpuscular Volume 87.8 fL (80.0-100.0); Mean Platelet Volume 9.5 fL (9.4-12.4); Platelet Count 160 K/uL (130-400); RDW Coefficient of Variation 17.8 % (11.5-14.5); RDW Standard Deviation 56.8 fL (36.4-46.3); Red Blood Count 2.62 M/uL (4.20-5.40); White Blood Count 6.47 K/ul (4.8-10.8)
[2024-12-22 06:28] LABS: BUN Creatinine Ratio 15.2 (10-20); Calcium 8.6 mg/dl (8.6-10.3); Creatinine Clr Calc Pharmacy 22.4 ml/min; Potassium 5.1 mmol/L (3.5-5.1)
[2024-12-22] MEDS: FUROSEMIDE 40 MG/4 ML VIAL IV SCH ×2 (06:34→13:11)
[2024-12-22 06:45] LABS: ANTI-Xa, UFH(UnfractionatedHep 1.28 IU/ml (0.3-0.7)
[2024-12-22 06:47] LABS: Basophils # (auto) 0.02 K/uL (0.00-0.20); Basophils % (auto) 0.3 %; Eosinophils # (auto) 0.04 K/uL (0.00-0.50); Eosinophils % (auto) 0.6 %; Immature Granulocytes # (auto) 0.12 K/uL (0.01-0.20); Immature Granulocytes % (auto) 1.9 %; Lymphocytes # (auto) 0.25 K/uL (1.20-3.40); Lymphocytes % (auto) 3.9 %; Monocytes # (auto) 0.43 K/uL (0.11-0.59); Monocytes % (auto) 6.6 %; Neutrophils # (auto) 5.61 K/uL (1.40-6.50); Neutrophils % (auto) 86.7 %; Polychromasia 1+
[2024-12-22] MEDS ORDERED: SODIUM CHLORIDE 0.9% 100 ML IV PRN (08:30)
--- NOTE | 2024-12-22 09:01 | XRay Report ---
XR chest 1V portable HISTORY: 74 years-old Female hypoxia acute shortness of breath COMPARISON: CT chest 12/21/2024 TECHNIQUE: AP view of the chest FINDINGS: Cardiac silhouette is enlarged. Interstitial pulmonary edema with persistent layering pleural effusio ns and dependent bibasilar consolidation. Except of osseous metastasis again noted. IMPRESSION: 1. Cardiomegaly with interstitial pulmonary edema. 2. Layering pleural effusions with dependent bibasilar consolidation redemonstrated. 3. Extensive osseous metastatic disease. ACT 112: Negative or not required by law. The above report was generated using voice recognition software. It may contain grammatical, syntax o r spelling errors. Electronically signed by: Negro Hernandez M.D. 12/22/2024 8:59 AM
[2024-12-22] MEDS: IRON SUCROSE 300 MG in SODIUM CHLORIDE 0.9% 250 ML IV ONE (10:12)
--- NOTE | 2024-12-22 10:44 | Hospitalist Progress Note ---
Date of Service December 22, 2024 Assessment & Plan (1) Dyspnea: Plan: Due to significant anemia and CHF. No PE seen on CTA. She is on Xarelto since she has factor V Leiden deficiency. Apparently her Xarelto was stopped last August but needs to be restarted. Bilateral lower extremity venous Dopplers were done and report is pending. (2) Iron deficiency: Plan: Parenteral iron replacement underway. Currently day 2 of 3. Fecal occult blood is negative. She denies overt melena or hematochezia (3) Blood loss anemia: Plan: Probably from iron deficiency and diffuse metastatic disease. Fecal occult blood is negative. Hemoglobin 7.1 today, December 22. 2 more units packed red blood cells ordered. Serial labs ongoing. Continue parenteral iron replacement. Recent UGI and colonoscopy negative. She received a blood transfusion on admission for hemoglobin 7.0. Serial labs (4) Hypertension: Plan: Stable. Continue current medical management (5) CKD (chronic kidney disease): Plan: Creatinine 2.1 on admission. Improved to 1.8 on February 20 but jumped to 2.8 today, February 21. She did receive contrast with the chest CTA but she has also received intravenous Lasix. Will continue to monitor urine output and daily lab. Plan Eventual discharge to home once CHF is treated and anemia corrected. She will need to have outpatient right breast biopsy performed. Hopefully she can go home later this coming week Admission and Anticipated Discharge Date Admission Date: December 20, 2024 Subjective Alert and oriented. Hemoglobin has dropped to 7.1. Fortunately the fecal occult blood test is negative. 2 units packed red blood cells ordered. She appears to have a new diagnosis of right breast cancer with diffuse metastatic disease. Oncology consultation appreciated. Unfortunately, inpatient right breast biopsy cannot be performed. This will have to be done as an outpatient. Continue iron replacement therapy. Chest x-ray done today reveals continued bilateral pleural effusions, left greater than right and evidence of CHF. Parenteral Lasix increased from 40 to 60 mg every 12 hours. Cardiac echo reveals normal ejection fraction with moderate . Creatinine has bumped up to 2.8 but this cannot be helped. Review of Systems 2 Review of Systems: Constitutionalno fever or chills ENTno blurred vision, no double vision, no epistaxis, no sore throat Respiratoryno cough, no wheezing. Dyspnea on exertion Cardiacno palpitations, no chest pain, no syncope Jarek nausea, vomiting, diarrhea, melena, hematochezia GUno urinary retention, no urinary incontinence, no dysuria, no hematuria Musculoskeletalno joint pain, no muscle tenderness Skinno bruising, no rashes, no pruritus. Pallor noted Neurono isolated weakness, no paresthesia, no weakness Psychno depression, no anxiety Physical Exam 2 Physical Exam: General-alert and oriented x3, no fever, no chills HEENT-head atraumatic and normocephalic, pupils equal and reactive to light, extraocular muscles intact Neck-no lymphadenopathy or thyromegaly, trachea midline Chest-no inspiratory rales or rhonchi. No wheezing. Clear Cardiac-regular rate and rhythm, normal S1 and S2 Abdomen-normal bowel sounds, no hepatosplenomegaly [id number]+ pitting edema bilateral lower extremities below the knees Skinpallor noted Neuro-cranial nerves II through XII intact, motor and sensory function within normal limits, strength symmetrical with generalized weakness, no focal deficits Psych-normal affect, normal mood Results & Data Results & Data Vital Signs (Past 12 Hours) Vital Signs Temp Pulse Pulse Resp BP BP Pulse Ox 12/22/24 10:24 36.8 C 74 18 110/68 90 12/22/24 10:02 36.6 C 78 20 86/52 L 94 12/22/24 08:09 36.7 C 66 18 102/59 L 92 12/22/24 06:25 68 96/52 L 92 12/22/24 03:47 12/22/24 02:28 36.8 C 75 18 112/44 L 93 O2 Del Method O2 Flow Rate 12/22/24 10:24 12/22/24 10:02 12/22/24 08:09 Nasal Cannula 2 12/22/24 06:25 Room Air 12/22/24 03:47 Room Air 12/22/24 02:28 Room Air Laboratory Results 12/22/24 05:54 12/22/24 05:54 PG Care Time/CCT Total # of Minutes Spent Total Time Spent with Patient: Total time spent is greater than 50% in coordination of care (as documented) at patient's floor/unit and/or counseling patient: Coding Level of Care Code 32257 SUB INP/OBS CARE 3/50MIN Diagnoses Dyspnea on exertion R06.09 Dyspnea type: dyspnea on exertion Iron deficiency E61.1 Blood loss anemia D50.0 Hypertension I10 CKD (chronic kidney disease) N18.9 (1) Dyspnea Dyspnea type: dyspnea on exertion Qualified Code(s): R06.09 - Other forms of dyspnea
[2024-12-22 15:23] LABS: Hematocrit (blood only) 29.2 % (37.0-47.0); Hemoglobin 8.9 g/dl (12.0-16.0)
--- NOTE | 2024-12-23 07:32 | Hospitalist Progress Note ---
Date of Service December 23, 2024 Assessment & Plan (1) Dyspnea: (2) Iron deficiency: (3) Blood loss anemia: (4) CKD (chronic kidney disease): Plan 74-year-old female presented anemia discovered by her primary care physician associated with shortness of breath. She is found to have evidence of heart failure with valvular heart disease and metastatic breast cancer which is a new diagnosis for her. Attempted diuresis that was resulted in acute kidney injury. Patient is unable to get breast biopsy as an inpatient this will be [facility] as outpatient [facility]. #Acute kidney injurypatient was put on Lasix twice daily, now will have one liter of fluid, this is likely pre renal given diuresis will check ua, urine culture and renal us #Anemia it was noted patient has received parenteral iron and transfused 2 units packed red blood cells with appropriate rise of hemoglobin. Patient was anticoagulated with Xarelto as an outpatient due to previous pulmonary embolism she is a high risk for recurrence of VTE given her malignancy. #Heart failure preserved ejection fraction, patient has moderate aortic stenosis and likely had chronic anemia these can both be causes of her pulmonary edema and pleural effusions. Attempt at diuresis have resulted in acute kidney injury with most likely chronic kidney disease stage III is a baseline #Breast cancer. Patient has a breast mass and evidence of osseous involvement. Will tissue diagnosis has not yet been met, nurse ALANIZ is working with the breast center for follow # deconditioning, PT/OT have concerns for need of rehab, but pt wants to go home, will continue to have therapy work with her Admission and Anticipated Discharge Date Admission Date: December 20, 2024 Subjective pts hgb is now 8, dark urine but not gross hematuria, has had reynolds since weekend, some dysuria associated, has intertrigo below breasts L>R Physical Exam Physical Exam: awake and appropriate cardiac is regular lungs are clear right breast with some firmness intertrigo below breasts Results & Data Results & Data Vital Signs (Past 12 Hours) Vital Signs Temp Pulse Pulse Resp BP Pulse Ox O2 Del Method 12/23/24 07:00 82 12/23/24 03:20 98.1 F 69 20 90/58 L 94 Room Air 12/22/24 23:03 97.9 F 84 20 98/61 L 91 Room Air 12/22/24 22:35 98.4 F 87 18 122/79 91 Room Air 12/22/24 22:01 84 04/06/25 19:35 99.3 F 90 20 118/76 91 Room Air 12/22/24 19:25 Room Air Laboratory Results review cbc review prp marked KATHARINE PG Care Time/CCT Total # of Minutes Spent Total Time Spent with Patient: Total time spent is greater than 50% in coordination of care (as documented) at patient's floor/unit and/or counseling patient: Coding Level of Care Code 45351 SUB INP/OBS CARE 3/50MIN Diagnoses Dyspnea on exertion R06.09 Dyspnea type: dyspnea on exertion Iron deficiency E61.1 Blood loss anemia D50.0 CKD (chronic kidney disease) N18.9 (1) Dyspnea Dyspnea type: dyspnea on exertion Qualified Code(s): R06.09 - Other forms of dyspnea
[2024-12-23] MEDS ORDERED: RIVAROXABAN 15 MG TAB PO SCH (09:00)
[2024-12-23] MEDS ORDERED: Nursing to Pharmacy Communication SCH (10:15)
[2024-12-23 10:56] LABS: Hematocrit (blood only) 26.3 % (37.0-47.0); Mean Corpuscular Hemoglobin 26.9 pg (25.0-34.0); Mean Corpuscular Hgb Conc 30.4 g/dL (32.0-36.0); Mean Corpuscular Volume 88.6 fL (80.0-100.0); Mean Platelet Volume 9.6 fL (9.4-12.4); Platelet Count 170 K/uL (130-400); RDW Coefficient of Variation 17.7 % (11.5-14.5); RDW Standard Deviation 56.7 fL (36.4-46.3); Red Blood Count 2.97 M/uL (4.20-5.40)
[2024-12-23 11:12] LABS: BUN Creatinine Ratio 13.7 (10-20); BUN Creatinine Ratio 14.7 (10-20); Calcium 8.9 mg/dl (8.6-10.3); Creatinine Clr Calc Pharmacy 15.4 ml/min; Potassium 5.1 mmol/L (3.5-5.1); Potassium 5.2 mmol/L (3.5-5.1)
[2024-12-23 11:13] LABS: White Blood Count 5.58 K/ul (4.8-10.8)
[2024-12-23 11:15] LABS: Basophils # (auto) 0.01 K/uL (0.00-0.20); Basophils % (auto) 0.2 %; Eosinophils # (auto) 0.05 K/uL (0.00-0.50); Eosinophils % (auto) 0.9 %; Immature Granulocytes # (auto) 0.03 K/uL (0.01-0.20); Immature Granulocytes % (auto) 0.5 %; Lymphocytes # (auto) 0.27 K/uL (1.20-3.40); Lymphocytes % (auto) 4.8 %; Monocytes % (auto) 5.4 %; Neutrophils # (auto) 4.92 K/uL (1.40-6.50); Neutrophils % (auto) 88.2 %
[2024-12-23] MEDS: NYSTATIN POWDER 15GM BTL EXT PRN (12:13)
--- NOTE | 2024-12-23 13:22 | Ultrasound Report ---
Exam(s): US VENOUS BILATERAL LOWER EXTREMITIES ADDENDUM - Added by Africa Martinez M.D. on 12/20/2024 11:10 PM (-04:00) EXAM: US Duplex Bilateral Lower Extremities Veins CLINICAL HISTORY: Reason for exam: leg swelling. TECHNIQUE: Real-time duplex ultrasound scan of the bilateral lower extremity veins integrating B-mode two-dimensional vascular structure, Doppler spectral analysis, color flow Doppler imaging and compression. COMPARISON: No relevant prior studies available. FINDINGS: Right deep veins: Nonocclusive DVT in the posterior tibial vein of the calf. No DVT in the right common femoral, femoral, proximal deep femoral or popliteal veins. Right superficial veins: Unremarkable. No thrombus in the visualized right great saphenous vein. Left deep veins: Unremarkable. No DVT in the left common femoral, femoral, proximal deep femoral or popliteal veins. Left superficial veins: Unremarkable. No thrombus in the visualized left great saphenous vein. Soft tissues: No acute findings. IMPRESSION: 1. Nonocclusive DVT in the right posterior tibial vein of the calf. 2. No left lower extremity DVT. Communications: 12/20/24 23:47 Verify Receipt Verified receipt with Nurse Sawyer for Dr. Green on 12/20 23:49 (-04:00) Electronically signed by: Africa Martinez M.D. 12/20/24 23:10 PM
[2024-12-23 15:55] LABS: Appearance Urine Cloudy (Clear); Bacteria Urine Automated 4+ (None Seen); Bilirubin Urine Negative (Negative); Blood Urine 3+ (Negative); Color Urine Yellow; Epithelial Cell Urine Auto 0-2 /hpf (0-2); Glucose Urine UA Negative (Negative); Ketones Urine Negative (Negative); Leukocyte Esterase Urine 3+ (Negative); Nitrite Urine Negative (Negative); Protein Urine 2+ (Negative); RBC Urine Automated >20 /hpf (0-2); Specific Gravity Urine 1.013 (1.000-1.030); Urobilinogen Urine Negative (Negative); WBC Urine Automated >50 /hpf (0-5); pH Urine 6.5 (4.5-7.5)
--- NOTE | 2024-12-23 17:31 | Ultrasound Report ---
INDICATION: Kidney injury. COMPARISON: None. TECHNIQUE: Real-time sonographic examination of the retroperitoneum was performed in longitudinal and transverse dimensions. FINDINGS: Kidneys: Right kidney measures up to 14 cm. Multiple calculi measuring up to 2.8 cm. Negative for solid renal mass, cyst or hydronephrosis. Left kidney measures up to 9.4 cm. Multiple calculi measuring up to 1.5 cm. Negative for solid renal mass, cyst or hydronephrosis. Bladder: Decompressed by Pickett catheter. No abnormality seen. IMPRESSION: Multiple bilateral renal calculi. No hydronephrosis. Electronically signed by Polo Colbert 12-23-2024 5:30 PM
[2024-12-23] MEDS: SODIUM CHLORIDE 0.9% 1,000 ML IV SCH (17:47)
[2024-12-23] MEDS: RIVAROXABAN 15 MG TAB PO SCH (17:48)
[2024-12-24 07:13] LABS: Hematocrit (blood only) 24.6 % (37.0-47.0); Hemoglobin 7.5 g/dl (12.0-16.0); Mean Corpuscular Hemoglobin 27.3 pg (25.0-34.0); Mean Corpuscular Hgb Conc 30.5 g/dL (32.0-36.0); Mean Corpuscular Volume 89.5 fL (80.0-100.0); Platelet Count 171 K/uL (130-400); RDW Coefficient of Variation 17.7 % (11.5-14.5); Red Blood Count 2.75 M/uL (4.20-5.40); White Blood Count 5.78 K/ul (4.8-10.8)
[2024-12-24 07:17] LABS: Basophils # (auto) 0.02 K/uL (0.00-0.20); Basophils % (auto) 0.3 %; Eosinophils # (auto) 0.06 K/uL (0.00-0.50); Immature Granulocytes # (auto) 0.03 K/uL (0.01-0.20); Immature Granulocytes % (auto) 0.5 %; Lymphocytes # (auto) 0.38 K/uL (1.20-3.40); Lymphocytes % (auto) 6.6 %; Monocytes # (auto) 0.45 K/uL (0.11-0.59); Monocytes % (auto) 7.8 %; Neutrophils # (auto) 4.84 K/uL (1.40-6.50); Neutrophils % (auto) 83.8 %; Polychromasia 1+; Tear Drop Cells 1+
[2024-12-24 07:51] LABS: BUN Creatinine Ratio 14.2 (10-20); Calcium 8.5 mg/dl (8.6-10.3); Creatinine Clr Calc Pharmacy 13.9 ml/min
[2024-12-24] MEDS ORDERED: cefTRIAXone SODIUM 1,000 MG/50 ML BAG IV STA (08:44)
--- NOTE | 2024-12-24 09:21 | Nephrology Consultation ---
Date of Consultation December 24, 2024 Assessment & Plan (1) KATHARINE (acute kidney injury): Non-oliguric. BP and volume status acceptable. Electrolytes normal. No emergent indication for dialysis at this time. KATHARINE attributed to ATN +/- contrast nephropathy. Losartan held. Medications appropriate for kidney function. Alternative therapy to Xarelto encouraged. Diuretics held. BP low but acceptable. Will continue to monitor. Goal is to encourage even to slightly negative fluid balance. (2) CKD (chronic kidney disease): Baseline creatinine unknown. (3) Breast mass: Biopsy to be coordinated as outpatient. (4) Bone lesion: (5) Anemia: (6) Hypertension: Losartan held. (7) Factor 5 Leiden mutation, heterozygous: I discussed with the pharmacist as well as Dr. Kaufman. Will switch Xarelto to Lo venox prophylaxis for now during KATHARINE. May revisit DOAC therapy with dose adjusted Xarelto vs apixaban at discharge. History of Present Illness Reason for Consultation: acute on CKD-3 Requesting Physician: Abhishek Kaufman MD Attending Physician: Abhishek Kaufman MD History of Present Illness Miriam Selby is a 74 year-old female with hypertension, factor V Leiden mutat ion with history of PE ~15 years ago (previously maintained on Xarelto - discontinued in August), iron deficiency anemia (EGD and colonoscopy completed in November demonstrated polyps but no source of bleeding), moderate aortic stenosis, and chronic kidney disease. Miriam presented to the ER at [facility] on December 20 with progressive dyspnea and abnormal blood work. Evaluation included a CTA which unfortunately demonstrated a large tumor in the right breast with evidence of metastatic lesions in the axillary nodes and osseous lesions. Biopsy is being planned. Serum creatinine on admission 2.1 mg/dL which improved to 1.8 mg/dL in the first 24 hours s/p hydration. Unfortunately, creatinine has been subsequently rising 2.8-->4.0-->4.5 mg/dL. Renal US has demonstrated the kidneys to be unobstructed. Left kidney is 9.4 cm and right kidney 14 cm. Multiple bilateral nephrolithiasis measuring up to 2.1 cm on the left and 1.5 cm on the right. No evidence of obstruction. Urine microscopy demonstrating multiple RBCs + WBCs. Miriam is non-oliguric. She has been maintained in a net negative fluid balance. Allergies Allergy/AdvReac Type Severity Reaction Status Date / Time No Known Allergies Allergy Verified 12/20/24 18:03 Home Medications Medication Instructions Recorded Confirmed Type cholecalciferol (vitamin D3) 50 50 mcg PO DAILY 09/16/24 12/20/24 History mcg (2,000 unit) capsule folic acid 1 mg tablet 1 mg PO DAILY 09/16/24 12/20/24 History losartan 50 mg tablet 50 mg PO QAM 09/16/24 12/20/24 History acetaminophen 650 mg 1,300 mg PO Q12H PRN Pain 12/10/24 12/20/24 History tablet,extended release cyanocobalamin (vitamin B-12) 5,000 mcg sublingual DAILY 12/20/24 12/20/24 History 5,000 mcg sublingual tablet (Vitamin B-12) Patient History Medical History SOB (shortness of breath) on exertion Factor 5 Leiden mutation, heterozygous per pt., tested after having pulm. embolism in past Arthritis Urinary incontinence Hx pulmonary embolism aprox 15 years ago- had pos genetic testing - on xarelto- , - stopped in aug 2024 -no clots since Hx of flexible sigmoidoscopy Anemia Hypertension CKD (chronic kidney disease) Heme positive stool Surgical History Hx of cardiac catheterization x2 "many years ago" [place]- [place]- [place] stents [place]- [place]- no stents last one found showed slight blockages but told it was due to age. no longer sees cardio (can't remember name) History of surgery on lower extremity (2016) hematoma removed, after fall Hx of tonsillectomy (1956) Hx of laparoscopy x2, 40 years ago Family History Father Stroke Mother Breast cancer Colorectal cancer Denies family history of Crohn's disease Ulcerative colitis Social History (Updated 09/16/24 @ 15:03 by Negro Zee MA) Smoking Status: Never smoker Second Hand Exposure: No; Do You Dip or Chew Tobacco: No; Hx Alcohol Use: No Hx Substance Use: No Preferred Language: Bruneian Communication Ability: Effective Hadoop Analyst Required: No Beliefs That Will Affect Care: None Current Living Situation: Alone Current Living Situation Comment: Lives alone with cat Other Information That Helps Us Care for You: No Feels Safe at Home: Yes Safety Concerns: Feels Safe At This Time Assistive Devices: Cane and Walker Review of Systems Review of Systems: All systems reviewed & are unremarkable except as noted in HPI & below Physical Exam Constitutional: well developed and + morbidly obese; no acute distress Eyes: no scleral abnormality and no corneal abnormality ENMT: Mouth: no oral mucosal abnormality and oral mucous membranes not dry Neck: normal visual inspection and trachea midline Respiratory: normal respiratory effort Auscultation: lungs clear to auscultation bilaterally and + diminished lung sounds Cardiovascular: Rate/Rhythm: regular rate Heart Sounds: normal S1, normal S2 and + murmur Extremities: + edema Musculoskeletal: Extremities: no cyanosis and no clubbing Skin: normal turgor; no lesions Neurologic: Motor/Sensory: no tremor and no asterixis Psychiatric: Orientation: alert and oriented x 3 Results & Data Vital Signs (Past 12 Hours) Vital Signs Temp Pulse Pulse Resp BP BP Pulse Ox 12/24/24 07:44 36.8 C 59 L 18 92/60 L 90 12/24/24 07:13 67 12/24/24 03:13 36.5 C 110 H 18 93/59 L 90 12/23/24 22:57 12/23/24 22:31 37.2 C 83 20 102/63 90 12/23/24 21:48 82 O2 Del Method 12/24/24 07:44 Room Air 12/24/24 07:13 12/24/24 03:13 Room Air 12/23/24 22:57 Room Air 12/23/24 22:31 Room Air 12/23/24 21:48 Laboratory Results Laboratory Results - last 24 hr 12/23/24 12/23/24 12/23/24 10:21 10:21 10:21 WBC 5.58 RBC 2.97 L Hgb 8.0 L Hct 26.3 L MCV 88.6 MCH 26.9 MCHC 30.4 L RDW Std Deviation 56.7 H RDW Coeff of Norma 17.7 H Plt Count 170 MPV 9.6 Immature Gran % (Auto) 0.5 Neut % (Auto) 88.2 Lymph % (Auto) 4.8 Barry % (Auto) 5.4 Eos % (Auto) 0.9 Baso % (Auto) 0.2 Neut # (Auto) 4.92 Lymph # (Auto) 0.27 L Barry # (Auto) 0.30 Eos # (Auto) 0.05 Baso # (Auto) 0.01 Immature Gran # (Auto) 0.03 Polychromasia Tear Drop Cells Sodium 134 L 133 L Potassium 5.2 H 5.1 Chloride 104 Carbon Dioxide Anion Gap BUN Creatinine Est Cr Clr Drug Dosing eGFR BUN/Creatinine Ratio Glucose Calcium Urine Color Urine Appearance Urine pH Ur Specific [place] Urine Protein Urine Glucose (UA) Urine Ketones Urine Blood Urine Nitrite Urine Bilirubin Urine Urobilinogen Ur Leukocyte Esterase Urine WBC (Auto) Urine RBC (Auto) U Hyaline Cast (Auto) U Epithel Cells (Auto) Urine Bacteria (Auto) 12/23/24 12/23/24 12/23/24 10:21 10:21 10:21 WBC RBC Hgb Hct MCV MCH MCHC RDW Std Deviation RDW Coeff of Norma Plt Count MPV Immature Gran % (Auto) Neut % (Auto) Lymph % (Auto) Barry % (Auto) Eos % (Auto) Baso % (Auto) Neut # (Auto) Lymph # (Auto) Barry # (Auto) Eos # (Auto) Baso # (Auto) Immature Gran # (Auto) Polychromasia Tear Drop Cells Sodium Potassium Chloride 103 Carbon Dioxide 22 21 Anion Gap 8 9 BUN 56 H Creatinine Est Cr Clr Drug Dosing eGFR BUN/Creatinine Ratio Glucose Calcium Urine Color Urine Appearance Urine pH Ur Specific [place] Urine Protein Urine Glucose (UA) Urine Ketones Urine Blood Urine Nitrite Urine Bilirubin Urine Urobilinogen Ur Leukocyte Esterase Urine WBC (Auto) Urine RBC (Auto) U Hyaline Cast (Auto) U Epithel Cells (Auto) Urine Bacteria (Auto) 12/23/24 12/23/24 12/23/24 10:21 10:21 10:21 WBC RBC Hgb Hct MCV MCH MCHC RDW Std Deviation RDW Coeff of Norma Plt Count MPV Immature Gran % (Auto) Neut % (Auto) Lymph % (Auto) Barry % (Auto) Eos % (Auto) Baso % (Auto) Neut # (Auto) Lymph # (Auto) Barry # (Auto) Eos # (Auto) Baso # (Auto) Immature Gran # (Auto) Polychromasia Tear Drop Cells Sodium Potassium Chloride Carbon Dioxide Anion Gap BUN 60 H Creatinine 4.08 H D 4.08 H Est Cr Clr Drug Dosing 15.4 15.4 eGFR 10.87 BUN/Creatinine Ratio Glucose Calcium Urine Color Urine Appearance Urine pH Ur Specific [place] Urine Protein Urine Glucose (UA) Urine Ketones Urine Blood Urine Nitrite Urine Bilirubin Urine Urobilinogen Ur Leukocyte Esterase Urine WBC (Auto) Urine RBC (Auto) U Hyaline Cast (Auto) U Epithel Cells (Auto) Urine Bacteria (Auto) 12/23/24 12/23/24 12/23/24 10:21 10:21 10:21 WBC RBC Hgb Hct MCV MCH MCHC RDW Std Deviation RDW Coeff of Norma Plt Count MPV Immature Gran % (Auto) Neut % (Auto) Lymph % (Auto) Barry % (Auto) Eos % (Auto) Baso % (Auto) Neut # (Auto) Lymph # (Auto) Barry # (Auto) Eos # (Auto) Baso # (Auto) Immature Gran # (Auto) Polychromasia Tear Drop Cells Sodium Potassium Chloride Carbon Dioxide Anion Gap BUN Creatinine Est Cr Clr Drug Dosing eGFR 10.87 BUN/Creatinine Ratio 13.7 14.7 Glucose 135 H 136 H Calcium 8.9 Urine Color Urine Appearance Urine pH Ur Specific [place] Urine Protein Urine Glucose (UA) Urine Ketones Urine Blood Urine Nitrite Urine Bilirubin Urine Urobilinogen Ur Leukocyte Esterase Urine WBC (Auto) Urine RBC (Auto) U Hyaline Cast (Auto) U Epithel Cells (Auto) Urine Bacteria (Auto) 12/23/24 12/23/24 12/24/24 10:21 12:16 06:12 WBC 5.78 RBC 2.75 L Hgb 7.5 L Hct 24.6 L MCV 89.5 MCH 27.3 MCHC 30.5 L RDW Std Deviation 57.0 H RDW Coeff of Norma 17.7 H Plt Count 171 MPV 10.0 Immature Gran % (Auto) 0.5 Neut % (Auto) 83.8 Lymph % (Auto) 6.6 Barry % (Auto) 7.8 Eos % (Auto) 1.0 Baso % (Auto) 0.3 Neut # (Auto) 4.84 Lymph # (Auto) 0.38 L Barry # (Auto) 0.45 Eos # (Auto) 0.06 Baso # (Auto) 0.02 Immature Gran # (Auto) 0.03 Polychromasia 1+ Tear Drop Cells 1+ Sodium 131 L Potassium 5.0 Chloride 103 Carbon Dioxide 18 L Anion Gap 10 BUN 65 H Creatinine 4.58 H* D Est Cr Clr Drug Dosing 13.9 eGFR 9.46 BUN/Creatinine Ratio 14.2 Glucose 103 H Calcium 8.9 8.5 L Urine Color Yellow Urine Appearance Cloudy A Urine pH 6.5 Ur Specific [place] 1.013 Urine Protein 2+ H Urine Glucose (UA) Negative Urine Ketones Negative Urine Blood 3+ H Urine Nitrite Negative Urine Bilirubin Negative Urine Urobilinogen Negative Ur Leukocyte Esterase 3+ H Urine WBC (Auto) >50 H Urine RBC (Auto) >20 H U Hyaline Cast (Auto) 3-5 H U Epithel Cells (Auto) 0-2 Urine Bacteria (Auto) 4+ H Diagnostic Findings Renal US: Kidneys: Right kidney measures up to 14 cm. Multiple calculi measuring up to 2.8 cm. Negative for solid renal mass, cyst or hydronephrosis. Left kidney measures up to 9.4 cm. Multiple calculi measuring up to 1.5 cm. Negative for solid renal mass, cyst or hydronephrosis. Bladder: Decompressed by Pickett catheter. No abnormality seen. IMPRESSION: Multiple bilateral renal calculi. No hydronephrosis. CT angio chest PE protocol: COMPARISON: Duplex venous Doppler study 12/20/2024 FINDINGS: CTA: Moderate cardiomegaly. Trace pericardial effusion. Ill-defined dilation of the ascending thoracic aorta measures 4.4 x 4.2 cm. No dissection. Aberrant course of the right subclavian artery. Dilation of the main pulmonary artery, 3.7 cm. No pulmonary emboli. CT CHEST: No thyroid nodule. Nodular foci within the right axilla with 10 mm right subpectoral lymph node on image 131. Partially imaged right-sided nipple retraction with periareolar soft tissue thickening and heterogeneous asymmetry/probable mass in the right mid and upper outer quadrant right breast. No pathologically enlarged mediastinal or hilar lymph nodes. Small to moderate pleural effusions with dependent bibasilar consolidation. No suspicious pulmonary nodules or masses identified. Mild intralobular septal thickening. Central airways are patent. No acute upper abdominal abnormality. Multifocal mixed osteolytic and osteosclerotic bony metastasis. No definite acute pathologic fracture identified. IMPRESSION: 1. Partially imaged right breast malignancy with nipple retraction, skin thickening and right axillary vin metastasis. 2. Multifocal extensive osseous metastasis. 3. No pulmonary emboli. 4. Cardiomegaly with interstitial pulmonary edema, [id number] pleural effusions with bibasilar atelectasis. 5. 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 PG Care Time/CCT Total # of Minutes Spent Total Time Spent with Patient: Total time spent is greater than 50% in coordination of care (as documented) at patient's floor/unit and/or counseling patient: Coding Level of Care Code 33842 IN/OBS CONSULT LVL 4,60M Diagnoses KATHARINE (acute kidney injury) N17.9 CKD (chronic kidney disease) N18.9 Breast mass N63.0 Bone lesion M89.9 Anemia D64.9 Hypertension I10 Factor 5 Leiden mutation, heterozygous D68.51
--- NOTE | 2024-12-24 09:26 | XRay Report ---
XR chest 1V portable CLINICAL HISTORY: bilateral effusions, hypoxia COMPARISON STUDY: 12/22/2024 FINDINGS: There is stable cardiomegaly with pulmonary vascular congestion consistent with CHF. Stable small bilateral pleural effusions and associated lung base consolidation, left greater than right. N o pneumothorax. IMPRESSION: Stable exam. ACT 112: Negative or not required by law. Electronically signed by: Jose Cheek M.D. 12/24/2024 9:25 AM
[2024-12-24 10:05] LABS: Creatinine Urine Random 41.1 mg/dl
[2024-12-24] MEDS: cefTRIAXone SODIUM 2,000 MG/50 ML BAG IV STA (10:20)
--- NOTE | 2024-12-24 12:34 | Hospitalist Progress Note ---
Date of Service December 24, 2024 Assessment & Plan (1) Dyspnea: Plan: Due to anemia and CHF. No PE seen on CTA. She is on Xarelto since she has factor V Leiden deficiency. Apparently her Xarelto was stopped last August but needs to be restarted. Bilateral lower extremity venous Dopplers reveal a nonocclusive thrombus in the right lower extremity but there is no associated PE thankfully. (2) Iron deficiency: Plan: She received 3 days of parenteral iron replacement therapy. Fecal occult blood is negative. She denies overt melena or hematochezia. Hemoglobin initially improved but is now down trending again to 7.5. Will follow (3) Blood loss anemia: Plan: Appears to be due to iron deficiency and diffuse metastatic disease. Fecal occult blood is negative. She has received multiple blood transfusions this admission. Serial labs ongoing. She received parenteral iron replacement. Recent UGI and colonoscopy negative. Serial labs (4) Hypertension: Plan: Blood pressure is on the low end but the patient is asymptomatic. Will follow (5) CKD (chronic kidney disease): Plan: Creatinine 2.1 on admission. Improved to 1.8 on February 20 but has now risen to 4.5. Renal ultrasound negative for hydronephrosis. Nephrology consultation requested and pending. This appears to be multifactorial in etiology related to intravenous contrast administered earlier this admission along with IV Lasix therapy. Low renal perfusion related to CHF is also probably a factor. Plan We discussed possibility of discharge to snf facility at the time of discharge to continue to monitor her vital signs and follow lab work. She will need to have outpatient right breast biopsy performed and also follow-up with oncology Admission and Anticipated Discharge Date Admission Date: December 20, 2024 Subjective Alert and oriented. No distress. Unfortunately, her creatinine continues to rise. Creatinine is now 4.5. Nephrology consultation appreciated. Case was discussed. Renal failure appears to be ATN and multifactorial with intravenous contrast administered earlier this admission along with anemia, CHF, and Lasix administration. Hemoglobin improved with blood transfusion but is downtrending now to 7.5. Renal ultrasound negative for hydronephrosis. Suspected UTI with bacteria seen on urine analysis. 1 dose of intravenous Rocephin ordered for today, December 24. Portable chest x-ray continues to show evidence of CHF. Oxygen saturation is 90% on room air. Review of Systems 2 Review of Systems: Constitutionalno fever or chills ENTno blurred vision, no double vision, no epistaxis, no sore throat Respiratoryno cough, no wheezing. Dyspnea on exertion Cardiacno palpitations, no chest pain, no syncope. Shortness of breath with minimal exertion Jarek nausea, vomiting, diarrhea, melena, hematochezia GUno urinary retention, no urinary incontinence, no dysuria, no hematuria Musculoskeletalno joint pain, no muscle tenderness Skinno bruising, no rashes, no pruritus. Pallor noted Neurono isolated weakness, no paresthesia, no weakness Psychno depression, no anxiety Physical Exam 2 Physical Exam: General-alert and oriented x3, no fever, no chills HEENT-head atraumatic and normocephalic, pupils equal and reactive to light, extraocular muscles intact Neck-no lymphadenopathy or thyromegaly, trachea midline Chest-no inspiratory rales or rhonchi. No wheezing. Cardiac-regular rate and rhythm, normal S1 and S2 Abdomen-normal bowel sounds, no hepatosplenomegaly [id number]+ pitting edema bilateral lower extremities below the knees Skinpallor noted Neuro-cranial nerves II through XII intact, motor and sensory function within normal limits, strength symmetrical with generalized weakness, no focal deficits Psych-normal affect, normal mood Results & Data Results & Data Vital Signs (Past 12 Hours) Vital Signs Temp Pulse Pulse Resp BP BP Pulse Ox 12/24/24 10:56 36.9 C 74 20 92/60 L 94 12/24/24 10:01 12/24/24 07:44 36.8 C 59 L 18 92/60 L 90 12/24/24 07:13 67 12/24/24 03:13 36.5 C 110 H 18 93/59 L 90 O2 Del Method 12/24/24 10:56 Room Air 12/24/24 10:01 Room Air 12/24/24 07:44 Room Air 12/24/24 07:13 12/24/24 03:13 Room Air Laboratory Results 12/24/24 06:12 12/24/24 06:12 PG Care Time/CCT Total # of Minutes Spent Total Time Spent with Patient: Total time spent is greater than 50% in coordination of care (as documented) at patient's floor/unit and/or counseling patient: Coding Level of Care Code 11160 SUB INP/OBS CARE 3/50MIN Diagnoses Dyspnea on exertion R06.09 Dyspnea type: dyspnea on exertion Iron deficiency E61.1 Blood loss anemia D50.0 Hypertension I10 CKD (chronic kidney disease) N18.9 (1) Dyspnea Dyspnea type: dyspnea on exertion Qualified Code(s): R06.09 - Other forms of dyspnea
[2024-12-24] MEDS: ENOXAPARIN INJ 60 MG/0.6 ML SYR SQ SCH (15:30)
[2024-12-24 16:38] LABS: BUN Creatinine Ratio 14.7 (10-20); Calcium 8.7 mg/dl (8.6-10.3); Creatinine Clr Calc Pharmacy 13.3 ml/min; Potassium 5.2 mmol/L (3.5-5.1)
[2024-12-24] MEDS: SODIUM BICARBONATE 650 MG TAB PO SCH (23:00)
[2024-12-25 06:57] LABS: Hematocrit (blood only) 25.5 % (37.0-47.0); Mean Corpuscular Hemoglobin 27.7 pg (25.0-34.0); Mean Corpuscular Hgb Conc 31.4 g/dL (32.0-36.0); Mean Corpuscular Volume 88.2 fL (80.0-100.0); Mean Platelet Volume 9.8 fL (9.4-12.4); Platelet Count 182 K/uL (130-400); RDW Coefficient of Variation 17.5 % (11.5-14.5); RDW Standard Deviation 56.5 fL (36.4-46.3); Red Blood Count 2.89 M/uL (4.20-5.40); White Blood Count 6.32 K/ul (4.8-10.8)
[2024-12-25 07:49] LABS: Albumin Globulin Ratio 0.9 (0.9-2); Albumin Level 2.9 gm/dl (3.4-5.0); BUN Creatinine Ratio 14.8 (10-20); Bilirubin,Total 0.5 mg/dl (0.2-1.0); Calcium 8.5 mg/dl (8.6-10.3); Creatinine Clr Calc Pharmacy 12.8 ml/min; Globulin 3.4 gm/dl (2.5-4.0); Phosphorus 3.9 mg/dl (2.5-4.9); Potassium 5.2 mmol/L (3.5-5.1); Total Protein 6.3 gm/dl (6.0-8.3); Uric Acid 10.4 mg/dl (2.6-7.2)
[2024-12-25 08:15] LABS: Ferritin 781.4 ng/ml (8-388)
[2024-12-25] MEDS: IRON SUCROSE 300 MG in SODIUM CHLORIDE 0.9% 250 ML IV ONE (09:33)
--- NOTE | 2024-12-25 10:06 | Nephrology Progress Note ---
Date of Service December 25, 2024 Assessment & Plan (1) KATHARINE (acute kidney injury): Plan: Non-oliguric. BP and volume status acceptable. Electrolytes normal. No emergent indication for dialysis at this time. KATHARINE attributed to ATN secondary to UTI, hypotension, anemia, and contrast nephropathy. Losartan held. Metformin held. Medications appropriate for kidney function. Transitioned from Xarelto to Lovenox due to kidney dysfunction. Diuretics held. BP low but acceptable. Will continue to monitor. Goal is to encourage even to slightly negative fluid balance. Avoid intravascular volume depletion. (2) CKD (chronic kidney disease): Plan: Baseline creatinine unknown. (3) Breast mass: Plan: Biopsy to be coordinated as outpatient. (4) Bone lesion: (5) Anemia: Plan: s/p PRBC transfusion x 2 u on 12/23. Tsat low. Venofer 300 mg IV will be provided today. (6) Hypertension: Plan: Losartan held. (7) Factor 5 Leiden mutation, heterozygous: Plan: Xarelto to Lovenox prophylaxis for now during KATHARINE. May revisit DOAC therapy with dose adjusted Xarelto vs apixaban at discharge. (8) Nephrolithiasis: Plan: Non-contrast CT requested for additional evaluation. Admission and Anticipated Discharge Date Admission Date: December 20, 2024 Subjective No acute events overnight. Afebrile overnight. Denies any shaking chills. Pickett draining concentrated urine. Miriam is breathing comfortably. She feels reasonably well overall. Edema persists. Appetite fair. The patient was seen and evaluated with Dr. Sargent this AM. Review of Systems Review of Systems: All systems reviewed & are unremarkable except as noted in HPI & below Physical Exam Constitutional: well developed and + morbidly obese; no acute distress Eyes: no scleral abnormality and no corneal abnormality ENMT: Mouth: no oral mucosal abnormality and oral mucous membranes not dry Neck: normal visual inspection and trachea midline Respiratory: normal respiratory effort Auscultation: lungs clear to auscultation bilaterally and + diminished lung sounds Cardiovascular: Rate/Rhythm: regular rate Heart Sounds: normal S1, normal S2 and + murmur Extremities: + edema Musculoskeletal: Extremities: no cyanosis and no clubbing Skin: normal turgor; no lesions Neurologic: Motor/Sensory: no tremor and no asterixis Psychiatric: Orientation: alert and oriented x 3 Genitourinary: Pickett with concentrated urine Results & Data Vital Signs (Past 12 Hours) Vital Signs Temp Pulse Pulse Resp BP Pulse Ox O2 Del Method 12/25/24 07:39 36.8 C 63 18 105/67 91 Room Air 12/25/24 07:10 65 12/25/24 02:22 37.1 C 70 16 103/66 90 Room Air 12/25/24 00:00 75 Laboratory Results Laboratory Results - last 24 hr 12/24/24 12/24/24 12/25/24 09:12 15:52 06:28 WBC 6.32 RBC 2.89 L Hgb 8.0 L Hct 25.5 L MCV 88.2 MCH 27.7 MCHC 31.4 L RDW Std Deviation 56.5 H RDW Coeff of Norma 17.5 H Plt Count 182 MPV 9.8 Sodium 131 L 130 L Potassium 5.2 H 5.2 H Chloride 101 102 Carbon Dioxide 20 L 18 L Anion Gap 10 10 BUN 70 H 75 H Creatinine 4.76 H* 5.08 H* D Est Cr Clr Drug Dosing 13.3 12.8 eGFR 9.03 8.36 BUN/Creatinine Ratio 14.7 14.8 Glucose 135 H 106 H Uric Acid 10.4 H Calcium 8.7 8.5 L Phosphorus 3.9 Iron 24 L TIBC 172 L Transferrin 123 L Transferrin % Sat 14 L Ferritin 781.4 H Total Bilirubin 0.5 AST 14 ALT 6 L Alkaline Phosphatase 150 H B-Natriuretic Peptide 81 Total Protein 6.3 Albumin 2.9 L Globulin 3.4 Albumin/Globulin Ratio 0.9 PG Care Time/CCT Total # of Minutes Spent Total Time Spent with Patient: Total time spent is greater than 50% in coordination of care (as documented) at patient's floor/unit and/or counseling patient: Coding Level of Care Code 01754 SUB INP/OBS CARE 3/50MIN Diagnoses KATHARINE (acute kidney injury) N17.9 CKD (chronic kidney disease) N18.9 Breast mass N63.0 Bone lesion M89.9 Anemia D64.9 Hypertension I10 Factor 5 Leiden mutation, heterozygous D68.51 Nephrolithiasis N20.0
--- NOTE | 2024-12-25 11:36 | Hospitalist Progress Note ---
Date of Service December 25, 2024 Assessment & Plan (1) Dyspnea: Plan: Seen at the bedside. 1450 cc out in the Pickett overnight, dark-colored urine. No acute events overnight. No shortness of breath although does endorse chronic orthopnea without recent change. Endorses lower extremity swelling which is new. EXTR oral iron supplements. Had blood earlier this admission Dyspnea Due to anemia, CHF. CTA during admission with no evidence of PE. Anticoagulated for factor V Leiden. Xarelto resumed initially however this was transitioned to Lovenox due to renal dysfunction, nephrology felt Chest x-ray with mild interstitial pulmonary edema, similar layering effusions. Likely with some volume overload however no indication for acute dialysis and is reasonably on room air on 12/25. Recommend continuing current care, treating UTI and following suspected ATN. Once clinically stable, UTI appropriately treated, and hopefully anemia improved then can cautiously diurese at that time. Discussed with nephrology at time of bedside visit UTI UCx positive for 2 species of Klebsiella Rocephin continued. Could narrow to first/second generation cephalosporin however given variable renal function will continue Rocephin for ease of renal dosing at this time Iron deficiency anemia, AOCD Had previously received oral iron Iron studies with suspected ferritin elevation as a phase reactant otherwise consistent iron deficiency. Venofer ordered Hemoglobin stable, uptrending Likely some anemia of chronic disease with known metastatic breast cancer. Upper GI and colonoscopy negative for bleeding Hypertension Adequately controlled, losartan held for renal dysfunction ARF on CKD Baseline creatinine around 2.1. Continues to uptrend to 5.08 on 12/25. Suspected ATN from combination of intravascular contraction, UTI, and diuresis although is overall slightly total body fluid up with evidence of lower extremity edema and some third spacing. CTA/P without contrast ordered to reevaluate for obstructive pathology given underlying history of nephrolithiasis Trend creatinine to peak. Potassium stable at upper limits of normal/5.2. 1 dose of Lokelma given for ongoing renal dysfunction and hyperkalemia. No chest pain Right breast cancer with suspected bony metastasis Biopsy for tissue diagnosis is unable to be performed while inpatient Outpatient follow for CT-guided biopsy as outpatient and heme-onc follow-up DVT prophylaxis: Patient was transition to Lovenox temporarily, anticipate transition back to Xarelto on discharge. Diet: Heart healthy/low-salt No status: Full code (2) Iron deficiency: (3) Blood loss anemia: (4) Hypertension: (5) CKD (chronic kidney disease): Admission and Anticipated Discharge Date Admission Date: December 20, 2024 Subjective The at the bedside in conjunction with nephrology. Continues with some baseline orthopnea however this is unchanged in the previous few weeks. Overall she feels her breathing is comfortable at time of bedside visit Denies chest pain Endorses lower extremity edema from prior Pickett draining urine overnight, dark/tea colored per nursing No hypoxia No bleed Physical Exam Physical Exam: General: A&Ox3. NAD. Cooperative. HEENT: Atraumatic, normocephalic. Vision and hearing grossly intact. No conversational dyspnea Pulm: Grossly clear, trace crackles in the bases which clear on deep breathing. No overt rales symmetrical chest rise. No increased work of breathing. No respiratory distress. Cardiac: RRR, -mrg. Radial pulses intact and symmetrical. Extremities: Bilateral lower extremity pitting edema Results & Data Results & Data Vital Signs (Past 12 Hours) Vital Signs Temp Pulse Pulse Resp BP Pulse Ox O2 Del Method 12/25/24 10:53 Room Air 12/25/24 10:48 37.0 C 72 18 114/68 92 Room Air 12/25/24 07:39 36.8 C 63 18 105/67 91 Room Air 12/25/24 07:10 65 12/25/24 02:22 37.1 C 70 16 103/66 90 Room Air 12/25/24 00:00 75 PG Care Time/CCT Total # of Minutes Spent Total Time Spent with Patient: Total time spent is greater than 50% in coordination of care (as documented) at patient's floor/unit and/or counseling patient: Coding Level of Care Code 57692 SUB INP/OBS CARE 3/50MIN Diagnoses Dyspnea on exertion R06.09 Dyspnea type: dyspnea on exertion Iron deficiency E61.1 Blood loss anemia D50.0 Hypertension I10 CKD (chronic kidney disease) N18.9 (1) Dyspnea Dyspnea type: dyspnea on exertion Qualified Code(s): R06.09 - Other forms of dyspnea
[2024-12-25] MEDS: cefTRIAXone SODIUM 2,000 MG/50 ML BAG IV SCH (12:34)
[2024-12-25] MEDS: SODIUM ZIRCONIUM CYCLOSILICATE 10 GM PACKET PO ONE (12:34)
--- NOTE | 2024-12-25 12:53 | CT Scan Report ---
ABDOMEN AND PELVIS CT WITHOUT CONTRAST CT DOSE: 1394.82 mGy.cm HISTORY: KATHARINE, nephrolithiasis TECHNIQUE: Multiaxial CT images of the abdomen and pelvis were performed without contrast. A dose lo wering technique was utilized adhering to the principles of ALARA. COMPARISON STUDY: Ultrasound of 12/23/[address] of 12/21/2024 FINDINGS: There are stable small bilateral pleural effusions with adjacent mild lung base consolidati on. ABDOMEN: There is motion artifact. There are a few small gallstones without evidence of acute cholecy stitis. Liver, spleen, pancreas, and adrenal glands have an unremarkable non-IV contrasted appearance . There are multiple bilateral renal calculi measuring up to 3 cm on the right. There is atrophy of t he left kidney. There is a 1.3 cm calculus proximal left ureter. There is a 1 cm calculus distal righ t ureter. There is minimal bilateral hydronephrosis. There is gas within the renal collecting systems bilaterally. Pelvis: Pickett catheter is present in the urinary bladder is decompressed. There is debris within the urinary bladder suggesting infection. There is sigmoid diverticulosis. No acute diverticulitis. No becka wel inflammation or obstruction. No free fluid, free air, or abscess. Osseous structures: There is patchy sclerosis and lucency throughout the visualized skeleton consiste nt with diffuse osseous metastatic disease. There is severe lumbar degenerative disc disease. IMPRESSION: 1. Multiple bilateral renal calculi measuring up to 3 cm on the right. 2. Bilateral ureteral calculi with minimal bilateral hydronephrosis. There is gas within the renal co llecting systems suggesting emphysematous pyelonephritis unless there has been recent urologic proced ure. 3. Diffuse osseous metastatic disease. 4. Otherwise as described. ACT 112: Positive. There are findings on this exam that require communication between the performing entity and the patient following Patient Test Result Information Act ([place] Act 112) guidelines. The above report was generated using voice recognition software. It may contain grammatical, syntax o r spelling errors. Electronically signed by: Jose Cheek M.D. 12/25/2024 12:52 PM
--- NOTE | 2024-12-25 19:17 | Urology Consultation ---
Date of Consultation December 25, 2024 Assessment & Plan (1) Bilateral ureteral calculi: (2) UTI (urinary tract infection), bacterial: (3) KATHARINE (acute kidney injury): Plan 74 yo F who has been admitted for 5 days for dyspnea and a worsening KATHARINE. Cr initially 2.13, gretel slowly to over 5. An initial renal US showed bilateral stones but no hydronephrosis. Urine culture grew out two strains of klebsiella. Due to worsening renal function, a CT scan was performed today which showed bilateral ureteral calculi, bilateral air in the collecting system indicating ascending infection, and bilateral large renal stone burden. The left ureteral stone is fairly large. She is currently afebrile and hemodynamically stable. -Although patient is HD stable, I recommended we take her urgently for cystoscopy, bilateral retrograde pyelogram, and bilateral ureteral stent placement. Patient is not appropriately NPO but I do not think this should be put off until the morning. -Consent obtained. Discussed that there is a high likelihood that stenting may be unsucessful, and if that were the case, she may need to be tranferred for nephrostomy tube(s) She is already on appropriate antibiotics History of Present Illness Attending Physician: Mark Sargent MD History of Present Illness 74 yo F who has been admitted for 5 days for dyspnea and a worsening KATHARINE. Cr initially 2.13, gretel slowly to over 5. An initial renal US showed bilateral stones but no hydronephrosis. Urine culture grew out two strains of klebsiella. Due to worsening renal function, a CT scan was performed today which showed bilateral ureteral calculi, bilateral air in the collecting system indicating ascending infection, and bilateral large renal stone burden. The left ureteral stone is fairly large. She is currently afebrile and hemodynamically stable. She is currently on ceftriaxone Allergies Allergy/AdvReac Type Severity Reaction Status Date / Time No Known Allergies Allergy Verified 12/20/24 18:03 Home Medications Medication Instructions Recorded Confirmed Type cholecalciferol (vitamin D3) 50 50 mcg PO DAILY 09/16/24 12/20/24 History mcg (2,000 unit) capsule folic acid 1 mg tablet 1 mg PO DAILY 09/16/24 12/20/24 History losartan 50 mg tablet 50 mg PO QAM 09/16/24 12/20/24 History acetaminophen 650 mg 1,300 mg PO Q12H PRN Pain 12/10/24 12/20/24 History tablet,extended release cyanocobalamin (vitamin B-12) 5,000 mcg sublingual DAILY 12/20/24 12/20/24 History 5,000 mcg sublingual tablet (Vitamin B-12) Patient History Medical History (Updated 12/25/24 @ 19:57 by Tristin Sumner MD) 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 embolism in past Arthritis Urinary incontinence Hx pulmonary embolism aprox 15 years ago- had pos genetic testing - on xarelto- , - stopped in aug 2024 -no clots since Hx of flexible sigmoidoscopy Anemia Hypertension CKD (chronic kidney disease) Heme positive stool Surgical History Hx of cardiac catheterization x2 "many years ago" [place]- no MS- no stents [place]- no MS- no stents last one found showed slight blockages but told it was due to age. no longer sees cardio (can't remember name) History of surgery on lower extremity (2016) hematoma removed, after fall Hx of tonsillectomy (1956) Hx of laparoscopy x2, 40 years ago Family History Father Stroke Mother Breast cancer Colorectal cancer Denies family history of Crohn's disease Ulcerative colitis Social History (Updated 09/16/24 @ 15:03 by Negro Zee MA) Smoking Status: Never smoker Second Hand Exposure: No; Do You Dip or Chew Tobacco: No; Hx Alcohol Use: No Hx Substance Use: No Preferred Language: [place]itanian Communication Ability: Effective [employer] Required: No Beliefs That Will Affect Care: None Current Living Situation: Alone Current Living Situation Comment: Lives alone with cat Other Information That Helps Us Care for You: No Feels Safe at Home: Yes Safety Concerns: Feels Safe At This Time Assistive Devices: Cane and Walker Physical Exam Physical Exam: General: Alert and oriented, no acute distress HEENT: Normocephalic, mucous membranes moist Pulmonary: Nonlabored respirations Abdomen: Nondistended Extremities: Moves all 4 spontaneously Neuro: No gross deficits Skin: Warm, dry, no rashes noted Results & Data Vital Signs (Past 12 Hours) Vital Signs Temp Pulse Pulse Resp BP Pulse Ox O2 Del Method 12/25/24 15:22 36.4 C L 68 18 122/74 92 Room Air 12/25/24 14:13 69 12/25/24 10:53 Room Air 12/25/24 10:48 37.0 C 72 18 114/68 92 Room Air 12/25/24 07:39 36.8 C 63 18 105/67 91 Room Air PG Care Time/CCT Total # of Minutes Spent Total Time Spent with Patient: Total time spent is greater than 50% in coordination of care (as documented) at patient's floor/unit and/or counseling patient: Coding Level of Care Code 57226 INT INP/OBS CARE 375MIN Diagnoses Bilateral ureteral calculi N20.1 UTI (urinary tract infection), bacterial N39.0; A49.9 KATHARINE (acute kidney injury) N17.9
[2024-12-25] MEDS ORDERED: ONDANSETRON INJ 2 MG/ML 2 ML VIAL ONE (19:30)
[2024-12-25] MEDS ORDERED: LIDOCAINE 2% 2 ML VIAL/AMP(20MG/ML) INFIL ONE (19:30)
[2024-12-25] MEDS ORDERED: PROPOFOL IV EMULSION 10 MG/ML 20 ML VIAL IV ONE (19:30)
[2024-12-25] MEDS ORDERED: MIDAZOLAM HCL 1 MG/ML 2ML VIAL ONE (19:31)
[2024-12-25] MEDS ORDERED: fentaNYL citrate PF 100 MCG/2 ML VIAL ONE (19:31)
--- NOTE | 2024-12-25 19:33 | Anesthesiology Consultation ---
Date of Service December 25, 2024 Assessment & Plan (1) Encounter for pre-operative examination: Chart Review Chart Review: Acceptable Risk for Surgery (urgent / emergent) History Surgery Operation Date: 12/25/24 21:00 Proposed Procedures p Cystoscopy Retrograde - Tristin Sumner MD s Ureteral Stent Insertion/Removal(Bilateral) - Tristin Sumner MD Height/Weight Height: 5 ft 5 in Weight: 127 kg Allergies Allergy/AdvReac Type Severity Reaction Status Date / Time No Known Allergies Allergy Verified 12/20/24 18:03 Medications Home Medications Medication Instructions Recorded Confirmed Last Taken cholecalciferol (vitamin D3) 50 50 mcg PO DAILY 09/16/24 12/20/24 12/12/24 mcg (2,000 unit) capsule folic acid 1 mg tablet 1 mg PO DAILY 09/16/24 12/20/24 12/19/24 losartan 50 mg tablet 50 mg PO QAM 09/16/24 12/20/24 12/19/24 acetaminophen 650 mg 1,300 mg PO Q12H PRN Pain 12/10/24 12/20/24 Unknown tablet,extended release cyanocobalamin (vitamin B-12) 5,000 mcg sublingual DAILY 12/20/24 12/20/24 12/19/24 5,000 mcg sublingual tablet (Vitamin B-12) Active Medications Generic Name Dose Route Start Last Admin Trade Name Freq PRN Reason Stop Dose Admin Acetaminophen 650 mg 12/20/24 21:52 12/24/24 15:29 Acetaminophen 325 Mg Tab PO 01/19/25 21:51 650 mg Q4H PRN Administration Pain or Fever Cyanocobalamin 5,000 mcg 12/21/24 09:00 12/25/24 08:16 Cyanocobalamin (B-12) 2,500 Mcg Tablet SL 01/20/25 08:59 5,000 mcg DAILY GUSTAVO Administration Enoxaparin Sodium 60 mg 12/24/24 17:00 12/25/24 16:16 Enoxaparin Inj 60 Mg/0.6 Ml Syr SQ 01/23/25 16:59 60 mg DAILY@1700 GUSTAVO Administration Folic Acid 1 mg 12/21/24 09:00 12/25/24 08:16 Folic Acid 1 Mg Tab PO 01/20/25 08:59 1 mg DAILY GUSTAVO Administration Ceftriaxone Sodium 2,000 mg in 50 mls @ 100 mls/hr 12/25/24 11:00 12/25/24 13:15 Rocephin IV 12/28/24 11:29 Infused Q24H GUSTAVO Infusion Magnesium Hydroxide 30 ml 12/20/24 21:52 12/21/24 15:51 Magnesium Hydroxide Susp 30 Ml Udc PO 01/19/25 21:51 30 ml Q12H PRN Administration Constipation Nystatin 1 appln 12/23/24 08:45 12/23/24 12:13 Nystatin Powder 15gm Btl EXT 01/22/25 08:44 1 appln BID PRN Administration rash Vitamin D 50 mcg 12/21/24 09:00 12/25/24 08:16 Cholecalciferol 25 Mcg (1000 Units) Tab PO 01/20/25 08:59 50 mcg DAILY GUSTAVO Administration Past Medical History Medical History (Updated 12/25/24 @ 19:35 by Damir Roche MD) 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 embolism in past Arthritis Urinary incontinence Hx pulmonary embolism aprox 15 years ago- had pos genetic testing - on xarelto- , - stopped in aug 2024 -no clots since Hx of flexible sigmoidoscopy Anemia Hypertension CKD (chronic kidney disease) Heme positive stool Past Family History Family History Father Stroke Mother Breast cancer Colorectal cancer Denies family history of Crohn's disease Ulcerative colitis Past Surgical History Surgical History Hx of cardiac catheterization x2 "many years ago" [place]- no [place]- no stents [place]- no [place]- no stents last one found showed slight blockages but told it was due to age. no longer sees cardio (can't remember name) History of surgery on lower extremity (2016) hematoma removed, after fall Hx of tonsillectomy (1956) Hx of laparoscopy x2, 40 years ago Social History Smoking Status: Never smoker Do You Dip or Chew Tobacco: No Hx Alcohol Use: No Hx Substance Use: No substance use type: does not use Physical Exam Vital Signs Last Vital Signs Temp 36.4 C L 12/25/24 15:22 Pulse 68 12/25/24 15:22 Resp 18 12/25/24 15:22 BP 122/74 12/25/24 15:22 Pulse Ox 92 12/25/24 15:22 O2 Del Method Room Air 12/25/24 15:22 O2 Flow Rate 0 12/22/24 10:57 Testing Laboratory Results 12/25/24 06:28 12/25/24 06:28 PT 11.4 Seconds (9.0-12.0) 12/20/24 16:20 INR 1.1 (0.9-1.1) 12/20/24 16:20 APTT 25 Seconds (21-31) 12/20/24 16:20 Urine Color Yellow 12/23/24 12:16 Urine Appearance Cloudy (Clear) A 12/23/24 12:16 Urine pH 6.5 (4.5-7.5) 12/23/24 12:16 Ur Specific [place] 1.013 (1.000-1.030) 12/23/24 12:16 Urine Protein 2+ (Negative) H 12/23/24 12:16 Urine Glucose (UA) Negative (Negative) 12/23/24 12:16 Urine Ketones Negative (Negative) 12/23/24 12:16 Urine Nitrite Negative (Negative) 12/23/24 12:16 Ur Leukocyte Esterase 3+ (Negative) H 12/23/24 12:16 Urine WBC (Auto) >50 /hpf (0-5) H 12/23/24 12:16 Urine RBC (Auto) >20 /hpf (0-2) H 12/23/24 12:16 U Hyaline Cast (Auto) 3-5 /lpf (0-2) H 12/23/24 12:16 U Epithel Cells (Auto) 0-2 /hpf (0-2) 12/23/24 12:16 Urine Bacteria (Auto) 4+ (None Seen) H 12/23/24 12:16 Blood Type O Negative 12/20/24 16:45 Antibody Screen NEGATIVE 12/20/24 16:45 12/23/24 12:16 Urine Culture - Final Urine,Indwelling Cath Klebsiella pneumoniae Klebsiella pneumoniae#2 Electrocardiogram Date: 12/20/24 Findings: + NSR @ (75) and + T wave inversion (anterior) Echocardiogram Date: 12/21/24 EF: 65-70% Valvular Disease: + (moderate max PG 35 mean PG 18)
[2024-12-25] MEDS ORDERED: ETOMIDATE 2 MG/ML 20 ML VIAL IV ONE (19:44)
[2024-12-25] MEDS ORDERED: fentaNYL citrate PF 100 MCG/2 ML VIAL IV PRN (19:53)
[2024-12-25] MEDS ORDERED: ATROPINE SULFATE 0.1 MG/ML 10ML SYR IV PRN (19:53)
[2024-12-25] MEDS ORDERED: ONDANSETRON INJ 2 MG/ML 2 ML VIAL IV PRN (19:53)
[2024-12-25] MEDS: DIATRIZOATE MEGLUMINE 30% 100ML VIAL INSTIL PRN (20:25)
--- NOTE | 2024-12-25 20:28 | Operative Report ---
[facility] Post Operative Report Pre & Post Diagnosis Bilateral obstructing ureteral calculi, KATHARINE and bilateral ascending urinary tract infection Operation Date: 12/25/24 21:00 <No data on this case meets the specified criteria> Bilateral obstructing ureteral calculi, KATHARINE and bilateral ascending urinary t ract infection I identified the patient and participated in the time-out.: Yes Procedure Cystoscopy, bilateral retrograde pyelogram with radiograph interpretation, bilateral stent placement Operation Date: 12/25/24 21:00 <No data on this case meets the specified criteria> Surgeon Tristin Sumner MD Spool Tender None Estimated Blood Loss 0 Findings See Below Bladder consistent with cystitis. Retrograde showed bilateral obstruction. Purulent discharge from both ureters. Bilateral stents in appropriate position. Bilateral kidneys sitting just above iliac crests. Specimens None Drains Bilateral 6 [place] by 26 cm ureteral stents and an 18 [place] Pickett catheter with 10 cc balloon Anesthesia Type General Complications none Indications 74-year-old female was been admitted for 5 days with a UTI and recently was found to have worsening kidney function. CT scan performed today showed bilateral obstructing ureteral calculi, bilateral ascending UTIs with gas in both collecting systems, and a very large bilateral nonobstructing stone burden as well. Decision made to take her emergently to the OR. Description of Procedure After informed consent was obtained, the patient was transported operative suite. General anesthesia was induced. The patient was placed in dorsolithotomy position prepped and draped in a sterile fashion. They received preoperative ceftriaxone for antibiotic prophylaxis. An appropriate surgical timeout was performed. A 22 [place] rigid scope was inserted per urethra into the bladder. Ochoa cystoscopy revealed no stones or lesions. I turned my attention the right ureteral orifice and intubated this with a 5 [place] open-ended catheter. A right retrograde pyelogram was shot which showed moderate hydronephrosis and a very low-lying kidney. I did review her CT scan and confirm the kidney was this low. A sensor wire was advanced into the kidney and confirmed fluoroscopically. A 6 [place] by 6 [place] by 26 cm cm right ureteral stent was deployed with a good proximal coil in the renal pelvis and a good distal coil noted in the bladder, confirmed fluoroscopically and under direct visualization, respectively. I took another spot film and the stent appeared to migrate downwards so I externalized this to the urethral meatus with a grasper and advance the sensor wire back into the kidney and replace the stent with appropriate curl in the renal pelvis. I turned my attention to the left ureteral orifice and intubated this with a 5 [place] open-ended catheter. A retrograde pyelogram was shot which showed moderate hydronephrosis. A sensor wire was advanced in the kidney and 5 [place] was removed. A 6 [place] by 26 cm ureteral stent was applied with good proximal coil in the kidney confirmed fluoroscopically and a good distal coil confirmed under direct visualization in the bladder. The bladder was left full and the scope was removed. An 18 [place] Pickett catheter was inserted with return of clear urine. Balloon was inflated with 10 cc of sterile water. This concluded the end of the case. All counts were correct at the end of the case. I was present, scrubbed, and actively participated for the entirety of the procedure. I attest to the content of the Intraoperative Record and any orders documented therein. Any exceptions are noted below.
[2024-12-25] MEDS: SODIUM BICARBONATE 650 MG TAB PO SCH (23:32)
--- NOTE | 2024-12-26 01:03 | Critical Care Consultation ---
Date of Consultation December 26, 2024 Assessment & Plan (1) Emphysematous pyelonephritis: Plan Reason Critically Ill: 1. Complicated urinary tract infection with emphysematous pyelonephritis 2. Acute kidney injury, prerenal 3. Moderate aortic stenosis 4. Breast mass with bony metastasis 5. HFpEF Neuro - [facility] ICU: negative RASS GOAL 0 APAP PRN pain/fever Cardiac - No acute concerns Moderate newly diagnosed on TTE, LVEF 65-70% MAP goal > 65mmHg, currently maintaining without intervention Respiratory - No acute concerns SpO2 goal > 92% HOB 30 IS/Flutter GI - Diet: Advance QIAN SUP: N/A Bowel regimen: Miralax PRN RENAL/LYTES - Nephrology on board, appreciate continued recommendations Patient is making decent urine, > 600cc out since procedure, may be component of post-obstructive diuresis Will give 250cc bolus now and rebolus PRN, avoid intravascular depletion NaHCO3 tabs per Nephrology Replete electrolytes as indicated Reynolds for accurate I/Os Maintain net even to net negative ENDO - BG 140-180 per SCCM guidelines ISS if needed while inpatient HEME/ONC/OTHER - Therapeutic Lovenox renal failure dosing, to be transitioned to diagnostic radiologist therapeutic anticoagulation prior to D/C Oncology consult - will undergo CT guided breast mass biopsy as OP Fe transfusions per Heme/Onc Transfuse PRBC for HGB < 7 ID - Ceftriaxone for susceptible Klebsiella based on culture data No BC drawn, will not international exchange coordinator at this juncture. Can consider if patient clinically deteriorates to ensure clearance MRSA negative LINES/TUBES/DRAINS - PIV x2 Reynolds (Day #1) DVT PROPHYLAXIS - Enoxaparin DISPOSITION - ICU, possible downgrade in AM I have personally spent 30 minutes of critical care time in the direct management of this patient. This is a life/limb threatening event. This includes time spent evaluating patient, direct bedside care, chart review, placing orders, interpretation of diagnostic studies, discussion with consultants, patient, and family members, as well as other required patient management activities. This time is exclusive of all separately billable procedures, and teaching time and separate from and in addition to any other critical care service time. Thank you for allowing us to participate in the care of this patient. Please refer to my attending physician's documentation for any further recommendations. Supervising Physician Co-Signing Physician Notes Patient seen and examined. EMR reviewed. Discussed with critical care KHURRAM and agree with assessment plan as noted History of Present Illness Reason for Consultation: Emphysematous pyelonephritis Requesting Physician: Rosetta Attending Physician: Mark Sargent MD History of Present Illness Ms. Miriam Selby is a 74YOF with a history of factor V leidin on Xarelto, HTN, HFpEF, nephrolithiasis who was admitted to [facility] on 12/20/2024 due to dyspnea and anemia, found to have KATHARINE. Course has been complicated by worsening kidney function as well as diagnosis of breast cancer with bone lesions, anemia requiring PRBC, and emphysematous pyelonephritis with bilateral ureteral calculi. UTI Klebsiella. Underwent urgent cystoscopy with bilateral ureteral stent placement the evening of 12/25/[address] Sumner. Procedure went well, no immediate complications, did require intraoperative vasopressor boluses while under general anesthesia. She has been stable post-procedurally. UOP approximately 200cc dark and cloudy. Afebrile. Saturating well on 2L NC. She is pleasant and conversant with no current complaints. ROS + back pain, hip pain, otherwise negative. Allergies Allergy/AdvReac Type Severity Reaction Status Date / Time No Known Allergies Allergy Verified 12/20/24 18:03 Home Medications Medication Instructions Recorded Confirmed Type cholecalciferol (vitamin D3) 50 50 mcg PO DAILY 09/16/24 12/20/24 History mcg (2,000 unit) capsule folic acid 1 mg tablet 1 mg PO DAILY 09/16/24 12/20/24 History losartan 50 mg tablet 50 mg PO QAM 09/16/24 12/20/24 History acetaminophen 650 mg 1,300 mg PO Q12H PRN Pain 12/10/24 12/20/24 History tablet,extended release cyanocobalamin (vitamin B-12) 5,000 mcg sublingual DAILY 12/20/24 12/20/24 History 5,000 mcg sublingual tablet (Vitamin B-12) Patient History Medical History (Updated 12/26/24 @ 02:51 by Celia Garnica PA-C) 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 embolism in past Arthritis Urinary incontinence Hx pulmonary embolism aprox 15 years ago- had pos genetic testing - on xarelto- , - stopped in aug 2024 -no clots since Hx of flexible sigmoidoscopy Anemia Hypertension CKD (chronic kidney disease) Heme positive stool Surgical History Hx of cardiac catheterization x2 "many years ago" [place]- no [place]- no stents [place]- [place]- no stents last one found showed slight blockages but told it was due to age. no longer sees cardio (can't remember name) History of surgery on lower extremity (2016) hematoma removed, after fall Hx of tonsillectomy (1956) Hx of laparoscopy x2, 40 years ago Family History Father Stroke Mother Breast cancer Colorectal cancer Denies family history of Crohn's disease Ulcerative colitis Social History (Updated 09/16/24 @ 15:03 by Negro Zee MA) Smoking Status: Never smoker Second Hand Exposure: No; Do You Dip or Chew Tobacco: No; Hx Alcohol Use: No Hx Substance Use: No Preferred Language: Thai Communication Ability: Effective Data Analysis Assistant Required: No Beliefs That Will Affect Care: None Current Living Situation: Alone Current Living Situation Comment: Lives alone with cat Other Information That Helps Us Care for You: No Feels Safe at Home: Yes Safety Concerns: Feels Safe At This Time Assistive Devices: Cane and Walker Review of Systems Review of Systems: All systems reviewed & are unremarkable except as noted in Subjective Physical Exam Constitutional: + obese, + frail appearing and + edem[place] us; no acute distress Eyes: PERRL, conjunctivae normal, anicteric sclerae ENMT: external ear and nose normal, oropharynx normal Neck: trachea midline, no thyromegaly thick neck Respiratory: normal respiratory effort Auscultation: + diminished lung sounds faint crackles Cardiovascular: Rate/Rhythm: regular rate and regular rhythm Heart Sounds: + murmur Vessels: no JVD and no carotid bruit Extremities: normal capillary refill and + edema significant edema of BLE, dry skin with stasis changes. Gastrointestinal (Abdomen): normal bowel sounds, soft, nontender, no hepatosplenomegaly Musculoskeletal: Extremities: strength 5/5 throughout L foot with mild drop Skin: + dry skin; no wound Neurologic: PERRL, EOMI, accommodation nl, no face palsy, no dysarthria Psychiatric: A+Ox3, euthymic affect Genitourinary: reynolds in place draining dark cloudy urine Results & Data Results & Data Vital Signs (Past 12 Hours) Vital Signs Temp Pulse Pulse Pulse Resp BP BP 12/25/24 22:33 75 20 12/25/24 22:21 79 29 H 12/25/24 22:00 107/60 12/25/24 22:00 81 28 H 12/25/24 21:48 85 18 12/25/24 21:36 12/25/24 21:20 37.1 C 89 20 127/79 12/25/24 21:10 90 31 H 125/76 12/25/24 21:00 12/25/24 21:00 90 23 139/75 12/25/24 20:53 36.7 C 90 26 H 132/68 12/25/24 19:46 36.5 C 74 18 134/82 12/25/24 19:33 75 29 H 12/25/24 19:15 75 27 H 12/25/24 19:00 75 23 12/25/24 18:51 74 29 H 12/25/24 17:48 74 48 H 12/25/24 17:30 67 34 H 12/25/24 17:21 65 23 12/25/24 17:09 64 20 12/25/24 16:45 66 19 12/25/24 16:39 68 26 H 12/25/24 16:21 64 24 12/25/24 16:00 66 21 12/25/24 15:48 66 28 H 12/25/24 15:33 66 27 H 12/25/24 15:22 36.4 C L 68 18 122/74 12/25/24 15:21 68 42 H 12/25/24 15:03 63 21 12/25/24 14:48 66 38 H 12/25/24 14:33 67 32 H 12/25/24 14:15 66 20 12/25/24 14:13 69 12/25/24 14:00 67 19 12/25/24 13:45 75 54 H 12/25/24 13:30 67 23 12/25/24 13:21 68 26 H 12/25/24 13:06 69 27 H Pulse Ox Pulse Ox O2 Del Method O2 Del Method O2 Flow Rate O2 Flow Rate 12/25/24 22:33 94 12/25/24 22:21 95 12/25/24 22:00 12/25/24 22:00 95 12/25/24 21:48 94 12/25/24 21:36 93 12/25/24 21:20 98 Nasal Cannula 4 12/25/24 21:10 98 Oxymask 6 12/25/24 21:00 93 Nasal Cannula 2 12/25/24 21:00 97 Oxymask 10 12/25/24 20:53 93 Oxymask 10 12/25/24 19:46 93 Room Air 12/25/24 19:33 12/25/24 19:15 12/25/24 19:00 12/25/24 18:51 12/25/24 17:48 12/25/24 17:30 12/25/24 17:21 12/25/24 17:09 12/25/24 16:45 12/25/24 16:39 12/25/24 16:21 12/25/24 16:00 12/25/24 15:48 12/25/24 15:33 12/25/24 15:22 92 Room Air 12/25/24 15:21 12/25/24 15:03 12/25/24 14:48 12/25/24 14:33 12/25/24 14:15 12/25/24 14:13 12/25/24 14:00 12/25/24 13:45 12/25/24 13:30 12/25/24 13:21 12/25/24 13:06 Laboratory Results Reviewed Diagnostic Findings Reviewed Medications Administered See [facility] Coding Level of Care Code 58016 CRITICAL CARE 1ST 30-74M Diagnoses Emphysematous pyelonephritis N12 Time Spent (min) 30
[2024-12-26 01:05] LABS: BUN Creatinine Ratio 15.3 (10-20); Calcium 8.3 mg/dl (8.6-10.3); Creatinine Clr Calc Pharmacy 12.1 ml/min; Magnesium 2.1 mg/dl (1.7-2.4)
[2024-12-26] MEDS: LACTATED RINGER'S 250 ML IV ONE ×2 (02:01→02:40)
[2024-12-26 05:16] LABS: Basophils # (auto) 0.03 K/uL (0.00-0.20); Basophils % (auto) 0.6 %; Eosinophils # (auto) 0.15 K/uL (0.00-0.50); Eosinophils % (auto) 2.8 %; Hemoglobin 7.9 g/dl (12.0-16.0); Immature Granulocytes # (auto) 0.11 K/uL (0.01-0.20); Immature Granulocytes % (auto) 2.1 %; Lymphocytes # (auto) 0.56 K/uL (1.20-3.40); Lymphocytes % (auto) 10.4 %; Mean Corpuscular Hemoglobin 27.4 pg (25.0-34.0); Mean Corpuscular Hgb Conc 30.4 g/dL (32.0-36.0); Mean Corpuscular Volume 90.3 fL (80.0-100.0); Mean Platelet Volume 9.1 fL (9.4-12.4); Monocytes # (auto) 0.38 K/uL (0.11-0.59); Monocytes % (auto) 7.1 %; Neutrophils # (auto) 4.13 K/uL (1.40-6.50); Platelet Count 176 K/uL (130-400); RDW Coefficient of Variation 17.4 % (11.5-14.5); RDW Standard Deviation 57.5 fL (36.4-46.3); Red Blood Count 2.88 M/uL (4.20-5.40); White Blood Count 5.36 K/ul (4.8-10.8)
[2024-12-26 05:33] LABS: Echinocytes 1+; Tear Drop Cells 1+
[2024-12-26 05:40] LABS: BUN Creatinine Ratio 17.2 (10-20); Calcium 8.4 mg/dl (8.6-10.3); Creatinine Clr Calc Pharmacy 12.9 ml/min; Magnesium 2.1 mg/dl (1.7-2.4); Phosphorus 4.8 mg/dl (2.5-4.9)
--- NOTE | 2024-12-26 08:51 | Hospitalist Progress Note ---
Date of Service December 26, 2024 Assessment & Plan (1) Dyspnea: Plan: Complicated UTI No leukocytosis. Last fever 12/24/24 UCx positive for 2 species of Klebsiella. Both of these are sensitive to cephalosporins, she does not have any worsening leukocytosis or fever curve and appears to be responding well to Rocephin. Continue Rocephin Acute renal failure Renal ultrasound with bilateral stones but no hydro. Suspected to have prerenal depletion/ATN present by diuresis. Due to continued rise in creatinine CT was obtained. Discussed with urology. Bilateral nephro and utero lithiasis. Subsequently underwent stent bilateral stenting 12/27/2019 Baseline creatinine 1.82.1 Peaked at 5.3, downtrending/ post stenting CT with bilateral nephrolithiasis/utero lithiasis. Nonoliguric Bicarb tablets continued Continue Pickett, strict ins and outs Iron deficiency anemia, AOCD Had previously received oral iron Iron studies with suspected ferritin elevation as a phase reactant otherwise consistent iron deficiency. Venofer ordered. May receive up to 3 doses versus total cumulative dose of 1 g while hospitalized Hemoglobin stable, uptrending Likely some anemia of chronic disease with known metastatic breast cancer. Upper GI and colonoscopy negative for bleeding Dyspnea Due to anemia, CHF. 12/26 she is on room air without dyspnea at rest. No pleuritic pain CTA during admission with no evidence of PE. Anticoagulated for factor V Leiden. Xarelto resumed initially however this was transitioned to Lovenox per nephrology recommendations Chest x-ray with layering effusions, some volume overload diuresis initially deferred due to creatinine elevation? 18 intravascular depletion. Subsequently with evidence of obstructive KATHARINE she was stenting as below. Will likely need diuresis for total body hypervolemia however until renal function stabilizes with concern for intravascular depletion will target goal neutral fluid balance for now. Hypertension Hypotensive post stenting. Antihypertensives held. Normotensive on afternoon recheck Right breast cancer with suspected bony metastasis Biopsy for tissue diagnosis is unable to be performed while inpatient Outpatient follow for CT-guided biopsy as outpatient and heme-onc follow-up Factor V Leiden Xarelto was resumed during admission, subsequently temporally transition to Lovenox. Anticipate conversion back to Xarelto on discharge/once stable DVT prophylaxis: Lovenox (2) Iron deficiency: (3) Blood loss anemia: (4) Hypertension: (5) CKD (chronic kidney disease): Admission and Anticipated Discharge Date Admission Date: December 20, 2024 Jocelynn Pineda seen at the bedside. She reports she feels much better and that her en ergy seems to be better than yesterday. She denies fevers chills or sweats. She is surprised that she was told how bad of a urinary tract infection she may have had as she reports other than the feeling tired did not feel all that bad, but does acknowledge that she feels much better today. She reports she has a high pain tolerance which is not a recent good thing, but at the very least is not noticing any discomfort in her back or from her stents.Pickett catheter draining dark slightly red-tinged urine. Physical Exam Physical Exam: General: A&Ox3. NAD. Cooperative. HEENT: Atraumatic, normocephalic. Vision and hearing grossly intact. No conversational dyspnea Pulm: Basilar crackles. No wheezing.. No overt rales symmetrical chest rise. No increased work of breathing. No respiratory distress. Cardiac: RRR, -mrg. Radial pulses intact and symmetrical. : Pickett in place draining dark very slightly red-tinged urine. Extremities: Bilateral lower extremity pitting edema Results & Data Results & Data Vital Signs (Past 12 Hours) Vital Signs Temp Pulse Pulse Resp BP BP Pulse Ox 12/26/24 06:15 58 L 18 95 12/26/24 06:00 99/56 L 12/26/24 06:00 99/56 L 12/26/24 06:00 99/56 L 12/26/24 05:57 59 L 18 95 12/26/24 05:00 69 22 96 12/26/24 05:00 117/62 12/26/24 05:00 117/62 12/26/24 05:00 117/62 12/26/24 04:00 36.8 C 67 21 96 12/26/24 03:00 75 26 H 117/81 96 12/26/24 02:38 94/52 L 12/26/24 02:26 12/26/24 02:25 87/51 L 12/26/24 02:21 64 20 97 12/26/24 02:00 88/47 L 12/26/24 02:00 65 21 97 12/26/24 01:21 72 12/26/24 01:09 67 18 95 12/26/24 01:01 99/49 L 12/26/24 01:01 99/49 L 12/26/24 00:54 70 26 H 96 12/26/24 00:30 123/66 12/26/24 00:30 123/66 12/26/24 00:21 72 18 96 12/26/24 00:00 72 22 95 12/26/24 00:00 100/57 L 12/26/24 00:00 100/57 L 12/26/24 00:00 100/57 L 12/26/24 00:00 100/57 L 12/25/24 23:30 74 28 H 95 12/25/24 23:30 36.8 C 105/63 12/25/24 23:03 76 18 95 12/25/24 23:00 87/56 L 12/25/24 22:33 75 20 94 12/25/24 22:21 79 29 H 95 12/25/24 22:00 107/60 12/25/24 22:00 81 28 H 95 12/25/24 21:48 85 18 94 12/25/24 21:36 93 12/25/24 21:20 37.1 C 89 20 127/79 98 12/25/24 21:10 90 31 H 125/76 98 12/25/24 21:00 12/25/24 21:00 90 23 139/75 97 12/25/24 20:53 36.7 C 90 26 H 132/68 93 Pulse Ox O2 Del Method O2 Del Method O2 Flow Rate O2 Flow Rate 12/26/24 06:15 12/26/24 06:00 12/26/24 06:00 12/26/24 06:00 12/26/24 05:57 12/26/24 05:00 12/26/24 05:00 12/26/24 05:00 12/26/24 05:00 12/26/24 04:00 12/26/24 03:00 Nasal Cannula 2 12/26/24 02:38 12/26/24 02:26 Nasal Cannula 2 12/26/24 02:25 12/26/24 02:21 12/26/24 02:00 12/26/24 02:00 12/26/24 01:21 12/26/24 01:09 12/26/24 01:01 12/26/24 01:01 12/26/24 00:54 12/26/24 00:30 12/26/24 00:30 12/26/24 00:21 12/26/24 00:00 12/26/24 00:00 12/26/24 00:00 12/26/24 00:00 12/26/24 00:00 12/25/24 23:30 12/25/24 23:30 12/25/24 23:03 Nasal Cannula 2 12/25/24 23:00 12/25/24 22:33 12/25/24 22:21 12/25/24 22:00 12/25/24 22:00 12/25/24 21:48 12/25/24 21:36 12/25/24 21:20 Nasal Cannula 4 12/25/24 21:10 Oxymask 6 12/25/24 21:00 93 Nasal Cannula 2 12/25/24 21:00 Oxymask 10 12/25/24 20:53 Oxymask 10 PG Care Time/CCT Total # of Minutes Spent Total Time Spent with Patient: Total time spent is greater than 50% in coordination of care (as documented) at patient's floor/unit and/or counseling patient: Coding Level of Care Code 45780 SUB INP/OBS CARE 3/50MIN Diagnoses Dyspnea on exertion R06.09 Dyspnea type: dyspnea on exertion Iron deficiency E61.1 Blood loss anemia D50.0 Hypertension I10 CKD (chronic kidney disease) N18.9 (1) Dyspnea Dyspnea type: dyspnea on exertion Qualified Code(s): R06.09 - Other forms of dyspnea
--- NOTE | 2024-12-26 08:55 | Fluoroscopy Report ---
FL retrograde includes kub CLINICAL HISTORY: B/L CYSTO, STENTplacements COMPARISON STUDY: None pertinent FLUOROSCOPY TIME: 21.1 seconds FLUOROSCOPY IMAGES: 4 EXPOSURE DOSE: 13.68 mGy FINDINGS: Fluoroscopic guidance provided for bilateral stent placement IMPRESSION: Please refer to the procedure report for evaluation based upon real-time fluoroscopic obs ervation ACT 112: Negative or not required by law. Electronically signed by: Viktoriya Anna M.D. 12/26/2024 8:54 AM
--- NOTE | 2024-12-26 08:58 | Nephrology Progress Note ---
Date of Service December 26, 2024 Assessment & Plan (1) KATHARINE (acute kidney injury): Plan: Non-oliguric. BP and volume status acceptable. Electrolytes normal. No emergent indication for dialysis at this time. KATHARINE attributed to ATN secondary to ascending emphysematous pyelonephritis, obstruction, hypotension, anemia, and contrast nephropathy. Losartan held. Metformin held. Medications appropriate for kidney function. Transitioned from Xarelto to Lovenox due to kidney dysfunction. Diuretics held. BP low but acceptable. Will continue to monitor. Goal is to encourage even to slightly postive fluid balance. Avoid intravascular volume depletion. (2) CKD (chronic kidney disease): Plan: Baseline creatinine unknown. (3) Breast mass: Plan: Biopsy to be coordinated as outpatient. (4) Bone lesion: (5) Anemia: Plan: s/p PRBC transfusion x 2 u on 12/23. Tsat low. Venofer 300 mg IV will be provided yesterday. Additional 200 mg IV provided today. (6) Hypertension: Plan: Losartan held. (7) Factor 5 Leiden mutation, heterozygous: Plan: Xarelto to Lovenox prophylaxis for now during KATHARINE. May revisit DOAC therapy with dose adjusted Xarelto vs apixaban at discharge. (8) Nephrolithiasis: Plan: POD #1 s/p BL ureteral stent placement. (9) Emphysematous pyelonephritis: Plan: Culture +klebsiella. Remains on ceftriaxone. Admission and Anticipated Discharge Date Admission Date: December 20, 2024 Subjective s/p bilateral retrograde pyelogram and stent placement. Miriam was seen and evaluated in the ICU this AM. Pyelogram demonstrated bilateral obstruction which improved with stent placement. Purulent drainage noted from both ureters. Miriam tolerated the procedure well. She is afebrile. No chills/rigors. Miriam denies pain. Good urine output. Pickett draining concentrated urine with sediment. Review of Systems Review of Systems: All systems reviewed & are unremarkable except as noted in HPI & below Physical Exam Constitutional: well developed and + morbidly obese; no acute distress Eyes: no scleral abnormality and no corneal abnormality ENMT: Mouth: no oral mucosal abnormality and oral mucous membranes not dry Neck: normal visual inspection and trachea midline Respiratory: normal respiratory effort Auscultation: lungs clear to auscultation bilaterally and + diminished lung sounds Cardiovascular: Rate/Rhythm: regular rate Heart Sounds: normal S1, normal S2 and + murmur Extremities: + edema Musculoskeletal: Extremities: no cyanosis and no clubbing Skin: normal turgor; no lesions Neurologic: Motor/Sensory: no tremor and no asterixis Psychiatric: Orientation: alert and oriented x 3 Results & Data Vital Signs (Past 12 Hours) Vital Signs Temp Pulse Pulse Resp BP BP Pulse Ox 12/26/24 08:00 75 32 H 116/60 97 12/26/24 07:09 60 16 109/58 L 93 12/26/24 06:15 58 L 18 95 12/26/24 06:00 99/56 L 12/26/24 06:00 99/56 L 12/26/24 06:00 99/56 L 12/26/24 05:57 59 L 18 95 12/26/24 05:00 69 22 96 12/26/24 05:00 117/62 12/26/24 05:00 117/62 12/26/24 05:00 117/62 12/26/24 04:00 36.8 C 67 21 96 12/26/24 03:00 75 26 H 117/81 96 12/26/24 02:38 94/52 L 12/26/24 02:26 12/26/24 02:25 87/51 L 12/26/24 02:21 64 20 97 12/26/24 02:00 88/47 L 12/26/24 02:00 65 21 97 12/26/24 01:21 72 12/26/24 01:09 67 18 95 12/26/24 01:01 99/49 L 12/26/24 01:01 99/49 L 12/26/24 00:54 70 26 H 96 12/26/24 00:30 123/66 12/26/24 00:30 123/66 12/26/24 00:21 72 18 96 12/26/24 00:00 72 22 95 12/26/24 00:00 100/57 L 12/26/24 00:00 100/57 L 12/26/24 00:00 100/57 L 12/26/24 00:00 100/57 L 12/25/24 23:30 74 28 H 95 12/25/24 23:30 36.8 C 105/63 12/25/24 23:03 76 18 95 12/25/24 23:00 87/56 L 12/25/24 22:33 75 20 94 12/25/24 22:21 79 29 H 95 12/25/24 22:00 107/60 12/25/24 22:00 81 28 H 95 12/25/24 21:48 85 18 94 12/25/24 21:36 93 12/25/24 21:20 37.1 C 89 20 127/79 98 12/25/24 21:10 90 31 H 125/76 98 12/25/24 21:00 12/25/24 21:00 90 23 139/75 97 Pulse Ox O2 Del Method O2 Del Method O2 Flow Rate O2 Flow Rate 12/26/24 08:00 12/26/24 07:09 12/26/24 06:15 12/26/24 06:00 12/26/24 06:00 12/26/24 06:00 12/26/24 05:57 12/26/24 05:00 12/26/24 05:00 12/26/24 05:00 12/26/24 05:00 12/26/24 04:00 12/26/24 03:00 Nasal Cannula 2 12/26/24 02:38 12/26/24 02:26 Nasal Cannula 2 12/26/24 02:25 12/26/24 02:21 12/26/24 02:00 12/26/24 02:00 12/26/24 01:21 12/26/24 01:09 12/26/24 01:01 12/26/24 01:01 12/26/24 00:54 12/26/24 00:30 12/26/24 00:30 12/26/24 00:21 12/26/24 00:00 12/26/24 00:00 12/26/24 00:00 12/26/24 00:00 12/26/24 00:00 12/25/24 23:30 12/25/24 23:30 12/25/24 23:03 Nasal Cannula 2 12/25/24 23:00 12/25/24 22:33 12/25/24 22:21 12/25/24 22:00 12/25/24 22:00 12/25/24 21:48 12/25/24 21:36 12/25/24 21:20 Nasal Cannula 4 12/25/24 21:10 Oxymask 6 12/25/24 21:00 93 Nasal Cannula 2 12/25/24 21:00 Oxymask 10 Laboratory Results Laboratory Results - last 24 hr 12/25/24 12/25/24 12/26/24 15:45 22:23 00:11 WBC RBC Hgb Hct MCV MCH MCHC RDW Std Deviation RDW Coeff of Norma Plt Count MPV Immature Gran % (Auto) Neut % (Auto) Lymph % (Auto) Beauregard % (Auto) Eos % (Auto) Baso % (Auto) Neut # (Auto) Lymph # (Auto) Beauregard # (Auto) Eos # (Auto) Baso # (Auto) Immature Gran # (Auto) Tear Drop Cells Echinocytes Sodium 132 L Potassium 5.0 Chloride 102 Carbon Dioxide 20 L Anion Gap 10 BUN 82 H Creatinine 5.37 H* Est Cr Clr Drug Dosing 12.1 eGFR 7.82 BUN/Creatinine Ratio 15.3 Glucose 109 H POC Glucose 122 H Calcium 8.3 L Phosphorus Magnesium 2.1 Nasal Screen MRSA (PCR) Negative 12/26/24 04:54 WBC 5.36 RBC 2.88 L Hgb 7.9 L Hct 26.0 L MCV 90.3 MCH 27.4 MCHC 30.4 L RDW Std Deviation 57.5 H RDW Coeff of Norma 17.4 H Plt Count 176 MPV 9.1 L Immature Gran % (Auto) 2.1 Neut % (Auto) 77.0 Lymph % (Auto) 10.4 Beauregard % (Auto) 7.1 Eos % (Auto) 2.8 Baso % (Auto) 0.6 Neut # (Auto) 4.13 Lymph # (Auto) 0.56 L Beauregard # (Auto) 0.38 Eos # (Auto) 0.15 Baso # (Auto) 0.03 Immature Gran # (Auto) 0.11 Tear Drop Cells 1+ Echinocytes 1+ Sodium 132 L Potassium 5.0 Chloride 103 Carbon Dioxide 19 L Anion Gap 10 BUN 87 H Creatinine 5.07 H* D Est Cr Clr Drug Dosing 12.9 eGFR 8.38 BUN/Creatinine Ratio 17.2 Glucose 117 H POC Glucose Calcium 8.4 L Phosphorus 4.8 Magnesium 2.1 Nasal Screen MRSA (PCR) Diagnostic Findings ABDOMEN AND PELVIS CT WITHOUT CONTRAST COMPARISON STUDY: Ultrasound of 12/23/[address] of 12/21/2024 FINDINGS: There are stable small bilateral pleural effusions with adjacent mild lung base consolidation. ABDOMEN: There is motion artifact. There are a few small gallstones without evidence of acute cholecystitis. Liver, spleen, pancreas, and adrenal glands have an unremarkable non-IV contrasted appearance. There are multiple bilateral renal calculi measuring up to 3 cm on the right. There is atrophy of the left kidney. There is a 1.3 cm calculus proximal left ureter. There is a 1 cm calculus distal right ureter. There is minimal bilateral hydronephrosis. There is gas within the renal collecting systems bilaterally. Pelvis: Pickett catheter is present in the urinary bladder is decompressed. There is debris within the urinary bladder suggesting infection. There is sigmoid diverticulosis. No acute diverticulitis. No bowel inflammation or obstruction. No free fluid, free air, or abscess. Osseous structures: There is patchy sclerosis and lucency throughout the visualized skeleton consistent with diffuse osseous metastatic disease. There is severe lumbar degenerative disc disease. IMPRESSION: 1. Multiple bilateral renal calculi measuring up to 3 cm on the right. 2. Bilateral ureteral calculi with minimal bilateral hydronephrosis. There is gas within the renal collecting systems suggesting emphysematous pyelonephritis unless there has been recent urologic procedure. 3. Diffuse osseous metastatic disease. PG Care Time/CCT Total # of Minutes Spent Total Time Spent with Patient: Total time spent is greater than 50% in coordination of care (as documented) at patient's floor/unit and/or counseling patient: Coding Level of Care Code 91404 SUB INP/OBS CARE 3/50MIN Diagnoses KATHARINE (acute kidney injury) N17.9 CKD (chronic kidney disease) N18.9 Breast mass N63.0 Bone lesion M89.9 Anemia D64.9 Hypertension I10 Factor 5 Leiden mutation, heterozygous D68.51 Nephrolithiasis N20.0 Emphysematous pyelonephritis N12
--- NOTE | 2024-12-26 10:09 | Urology Progress Note ---
Date of Service December 26, 2024 Assessment & Plan (1) Bilateral ureteral calculi: (2) Emphysematous pyelonephritis: Plan: 74 yo F who was admitted on 12/20/24 for anemia, worsening dyspnea, and KATHARINE. Cr initially 2.13, gretel slowly to over 5. An initial renal US showed bilateral stones but no hydronephrosis. Urine culture grew out two strains of klebsiella. Due to worsening renal function, a CT scan was performed 12/25/24 which showed bilateral ureteral calculi, bilateral air in the collecting system indicating ascending infection, and bilateral large renal stone burden. She was taken to OR emergently for cystoscopy and bilateral ureteral stent placement with Dr. Sumner on 12/25/24. She required vasopressors intraoperatively, so was taken to ICU postoperatively. Patient afebrile and hemodynamically stable at present Labs reviewedcreatinine 5.07, WBC 5.36, hemoglobin 7.9 Urine culture grew out 2 strains of Klebsiella B/L ureteral stents in place for appropriate source control Continue antibiotics for complicated UTI Recommend ID consult Continue supportive care and medical management per medicine Maintain Pickett catheter Will arrange outpatient follow-up with our service to discuss definitive treatment will sign off, please contact our service with questions or concerns Admission and Anticipated Discharge Date Admission Date: December 20, 2024 Subjective Patient seen and examined at bedside in ICU. She is awake and resting in bed. Denies flank discomfort at present. Pickett intact. Denies fever or chills. Review of Systems Constitutional: as per Subjective / HPI Genitourinary: as per Subjective / HPI Physical Exam Constitutional: + obese; no acute distress Respiratory: no respiratory distress and no labored breathing Gastrointestinal (Abdomen): Inspection/Auscultation: abdomen normal to inspection Musculoskeletal: Head/Neck/Chest: normocephalic Neurologic: moves all extremities and awake Psychiatric: Orientation: alert and oriented x 3 Genitourinary: Pickett intact Results & Data Vital Signs (Past 12 Hours) Vital Signs Temp Pulse Resp BP Pulse Ox O2 Del Method O2 Flow Rate 12/26/24 08:00 75 32 H 116/60 97 12/26/24 07:09 60 16 109/58 L 93 12/26/24 06:15 58 L 18 95 12/26/24 06:00 99/56 L 12/26/24 06:00 99/56 L 12/26/24 06:00 99/56 L 12/26/24 05:57 59 L 18 95 12/26/24 05:00 69 22 96 12/26/24 05:00 117/62 12/26/24 05:00 117/62 12/26/24 05:00 117/62 12/26/24 04:00 36.8 C 67 21 96 12/26/24 03:00 75 26 H 117/81 96 Nasal Cannula 2 12/26/24 02:38 94/52 L 12/26/24 02:26 Nasal Cannula 2 12/26/24 02:25 87/51 L 12/26/24 02:21 64 20 97 12/26/24 02:00 88/47 L 12/26/24 02:00 65 21 97 12/26/24 01:21 72 12/26/24 01:09 67 18 95 12/26/24 01:01 99/49 L 12/26/24 01:01 99/49 L 12/26/24 00:54 70 26 H 96 12/26/24 00:30 123/66 12/26/24 00:30 123/66 12/26/24 00:21 72 18 96 12/26/24 00:00 72 22 95 12/26/24 00:00 100/57 L 12/26/24 00:00 100/57 L 12/26/24 00:00 100/57 L 12/26/24 00:00 100/57 L 12/25/24 23:30 74 28 H 95 12/25/24 23:30 36.8 C 105/63 12/25/24 23:03 76 18 95 Nasal Cannula 2 12/25/24 23:00 87/56 L 12/25/24 22:33 75 20 94 12/25/24 22:21 79 29 H 95 PG Care Time/CCT Total # of Minutes Spent Total Time Spent with Patient: Total time spent is greater than 50% in coordination of care (as documented) at patient's floor/unit and/or counseling patient: Coding Level of Care Code 58657 SUB INP/OBS CARE 2/35MIN Diagnoses Bilateral ureteral calculi N20.1 Emphysematous pyelonephritis N12
[2024-12-26] MEDS: IRON SUCROSE 300 MG in SODIUM CHLORIDE 0.9% 250 ML IV ONE (10:11)
[2024-12-26] MEDS: ICU Protocol for HYPERglycemia SCH (10:57)
--- NOTE | 2024-12-26 15:27 | Critical Care Progress Note ---
Date of Service December 26, 2024 Assessment & Plan (1) Emphysematous pyelonephritis: Plan Reason Critically Ill: 1. Complicated urinary tract infection with emphysematous pyelonephritis 2. Acute kidney injury, prerenal 3. Moderate aortic stenosis 4. Breast mass with bony metastasis 5. HFpEF Neuro - [facility] ICU: negative RASS GOAL 0 APAP PRN pain/fever Cardiac - No acute concerns Moderate newly diagnosed on TTE, LVEF 65-70% MAP goal > 65mmHg, currently maintaining without intervention -has not required pressors Respiratory - No acute concerns SpO2 goal > 92% HOB 30 IS/Flutter GI - Diet: Advance QIAN SUP: N/A Bowel regimen: Miralax PRN RENAL/LYTES - Nephrology on board, appreciate continued recommendations Continues to make urine this morning NaHCO3 tabs per Nephrology Replete electrolytes as indicated Reynolds for accurate I/Os Maintain net even to net negative ENDO - BG 140-180 per [facility] guidelines ISS if needed while inpatient HEME/ONC/OTHER - Lovenox dosing to be adjusted. Oncology consult - will undergo CT guided breast mass biopsy as OP Fe transfusions per Heme/Onc Transfuse PRBC for HGB < 7 ID - Ceftriaxone for susceptible Klebsiella based on culture data No BC drawn, will not exchange consultant at this juncture. Can consider if patie nt clinically deteriorates to ensure clearance MRSA negative LINES/TUBES/DRAINS - PIV x2 Reynolds (Day #1) DVT PROPHYLAXIS - Enoxaparin DISPOSITION - ICU, possible downgrade in AM Thank you for allowing us to participate in the care of this pleasant patient. Patient stable for downgrade to the ICU at this time. Admission and Anticipated Discharge Date Admission Date: December 20, 2024 Supervising Physician Co-Signing Physician Notes Patient seen and examined. EMR reviewed. Discussed with KHURRAM and agree with assessment plan as noted. Patient discussed on multidisciplinary rounds. Patient was observed overnight in the ICU given concerns about potential hemodynamic instability. She never required pressor agents. She is awake alert conversant and doing well clinically. Okay to return to the floor. Critical care will sign off. Feel free to contact us with questions or concerns Subjective Patient was seen and evaluated bedside. She reports irritation at the site of catheter. Otherwise, she had an uneventful night. She has finished her breakfast and is feeling well overall. She has not required vasopressor support. Review of Systems Review of Systems: Per subjective Physical Exam Constitutional: + obese, + frail appearing and + edemato us; no acute distress Eyes: PERRL, conjunctivae normal, anicteric sclerae ENMT: external ear and nose normal, oropharynx normal Neck: trachea midline, no thyromegaly thick neck Respiratory: normal respiratory effort Auscultation: + diminished lung sounds faint crackles Cardiovascular: Rate/Rhythm: regular rate and regular rhythm Heart Sounds: + murmur Vessels: no JVD and no carotid bruit Extremities: normal c apillary refill and + edema significant edema of BLE, dry skin with stasis changes. Gastrointestinal (Abdomen): normal bowel sounds, soft, nontender, no hepatosplenomegaly Musculoskeletal: Extremities: strength 5/5 throughout L foot with mild drop Skin: + dry skin; no wound Neurologic: PERRL, EOMI, accommodation nl, no face palsy, no dysarthria Psychiatric: A+Ox3, euthymic affect Genitourinary: reynolds in place draining dark cloudy urine Results & Data Results & Data Vital Signs (Past 12 Hours) Vital Signs Temp Pulse Resp BP Pulse Ox O2 Del Method O2 Flow Rate 12/26/24 11:15 70 26 H 95 12/26/24 10:00 72 27 H 90 Room Air 12/26/24 09:03 65 19 119/61 96 12/26/24 08:00 75 32 H 116/60 97 12/26/24 07:45 Nasal Cannula 2 12/26/24 07:09 60 16 109/58 L 93 12/26/24 06:15 58 L 18 95 12/26/24 06:00 99/56 L 12/26/24 06:00 99/56 L 12/26/24 06:00 99/56 L 12/26/24 05:57 59 L 18 95 12/26/24 05:00 69 22 96 12/26/24 05:00 117/62 12/26/24 05:00 117/62 12/26/24 05:00 117/62 12/26/24 04:00 36.8 C 67 21 96 Coding Level of Care Code 56315 SUB INP/OBS CARE 10/12MIN Diagnoses Emphysematous pyelonephritis N12
[2024-12-27 06:59] LABS: Hematocrit (blood only) 26.2 % (37.0-47.0); Mean Corpuscular Hemoglobin 27.5 pg (25.0-34.0); Mean Corpuscular Hgb Conc 30.5 g/dL (32.0-36.0); Mean Platelet Volume 9.1 fL (9.4-12.4); Nucleated RBC # (auto) 0.02 K/uL (0.00-0.12); Nucleated RBC % (auto) 0.5 %; Platelet Count 173 K/uL (130-400); RDW Coefficient of Variation 17.5 % (11.5-14.5); RDW Standard Deviation 58.2 fL (36.4-46.3); Red Blood Count 2.91 M/uL (4.20-5.40); White Blood Count 4.24 K/ul (4.8-10.8)
[2024-12-27 07:16] LABS: Basophils # (auto) 0.03 K/uL (0.00-0.20); Basophils % (auto) 0.7 %; Eosinophils # (auto) 0.18 K/uL (0.00-0.50); Eosinophils % (auto) 4.2 %; Immature Granulocytes # (auto) 0.24 K/uL (0.01-0.20); Immature Granulocytes % (auto) 5.7 %; Lymphocytes # (auto) 0.52 K/uL (1.20-3.40); Lymphocytes % (auto) 12.3 %; Monocytes # (auto) 0.36 K/uL (0.11-0.59); Monocytes % (auto) 8.5 %; Neutrophils # (auto) 2.91 K/uL (1.40-6.50); Neutrophils % (auto) 68.6 %; Polychromasia 1+
--- NOTE | 2024-12-27 07:24 | Urology Progress Note ---
Date of Service December 27, 2024 Assessment & Plan (1) Bilateral ureteral calculi: (2) Emphysematous pyelonephritis: Plan 74 year-old female admitted on 12/20/24 for anemia, worsening dyspnea, and KATHARINE. Due to worsening renal function, a CT scan was performed 12/25/24 which showed bi lateral ureteral calculi, bilateral air in the collecting system indicating ascending infection, and bilateral large renal stone burden. She was taken to OR emergently for cystoscopy and bilateral ureteral stent placement with Dr. Sunmer on 12/25/24. T-max overnight 37.9C, afebrile this morning. Labs reviewed - Continue antibiotics for complicated UTI. Continue supportive care and medical management per medicine. Maintain Pickett catheter. Will arrange outpatient follow-up with our service to discuss definitive treatment. Subjective Patient examined at bedside. She is awake, alert, comfortable. Denies flank or abdominal pain. Appetite has improved. Denies fevers or chills. No nausea or vomiting. No hematuria. Labs reviewed - White count 4.24 Hemoglobin 8.0 Creatinine - 4.70 Review of Systems Constitutional: as per Subjective / HPI; no fever and no chills Gastrointestinal: as per Subjective / HPI; no nausea and no vomiting Physical Exam Constitutional: well developed and well nourished; no acute distress and not ill appearing Respiratory: normal respiratory effort and able to speak in complete sentences; no respiratory distress and no audible wheezes Gastrointestinal (Abdomen): Inspection/Auscultation: abdomen normal to inspection; abdomen not distended Percussion/Palpation: abdomen soft; abdomen nontender and no guarding Psychiatric: Orientation: alert, oriented x 3 and cooperative Affect: euthymic affect Genitourinary: Pickett catheter intact draining clear yellow urine. Results & Data Vital Signs (Past 12 Hours) Vital Signs Temp Pulse Pulse Resp BP Pulse Ox O2 Del Method 12/27/24 07:05 36.7 C 92 H 18 119/74 96 Room Air 12/27/24 03:00 36.7 C 73 20 112/70 93 Room Air 12/26/24 23:59 37.9 C H 73 20 103/69 90 Room Air 12/26/24 21:40 77 12/26/24 20:00 Room Air
[2024-12-27 07:32] LABS: BUN Creatinine Ratio 17.7 (10-20); Calcium 8.3 mg/dl (8.6-10.3); Potassium 5.4 mmol/L (3.5-5.1)
--- NOTE | 2024-12-27 08:56 | Urology Progress Note ---
Date of Service December 27, 2024 Assessment & Plan (1) Bilateral ureteral calculi: (2) Emphysematous pyelonephritis: Plan 74 year-old female admitted on 12/20/24 for anemia, worsening dyspnea, and KATHARINE. Due to worsening renal function, a CT scan was performed 12/25/24 which showed bi lateral ureteral calculi, bilateral air in the collecting system indicating ascending infection, and bilateral large renal stone burden. She was taken to OR emergently for cystoscopy and bilateral ureteral stent placement with Dr. Sumner on 12/25/24. T-max overnight 37.9 C, afebrile this morning. Labs reviewed - creatinine remains elevated, although improving s/p stent placement. Continue antibiotics for complicated UTI. Continue supportive care and medical management per medicine. Maintain Pickett catheter. Will arrange outpatient follow-up with our service to discuss definitive treatment. Urology will sign off - please contact us with any additional concerns or questions. Admission and Anticipated Discharge Date Admission Date: December 20, 2024 Subjective Patient examined at bedside. She is awake, alert, comfortable. Denies flank or abdominal pain. Appetite has improved. Denies fevers or chills. No nausea or vomiting. No hematuria. Labs reviewed - White count 4.24 Hemoglobin 8.0 Creatinine - 4.70 Vital signs stable. Denies additional urologic concerns today. Review of Systems Constitutional: as per Subjective / HPI; no fever and no chills Gastrointestinal: as per Subjective / HPI; no nausea and no vomiting Physical Exam Constitutional: well developed, well nourished and comfortable; no acute distress Respiratory: normal respiratory effort and able to speak in complete sentences; no respiratory distress and no audible wheezes Skin: No visible rashes, lesions, or wounds noted. Color normal. Psychiatric: Orientation: alert, oriented x 3 and cooperative Motor Behavior: steady gait and station Affect: euthymic affect Genitourinary: Pickett catheter intact, draining clear yellow urine. Results & Data Vital Signs (Past 12 Hours) Vital Signs Temp Pulse Pulse Resp BP Pulse Ox O2 Del Method 12/27/24 07:42 36.6 C 69 18 116/67 91 Room Air 12/27/24 07:05 36.7 C 92 H 18 119/74 96 Room Air 12/27/24 03:00 36.7 C 73 20 112/70 93 Room Air 12/26/24 23:59 37.9 C H 73 20 103/69 90 Room Air 12/26/24 21:40 77 PG Care Time/CCT Total # of Minutes Spent Total Time Spent with Patient: Total time spent is greater than 50% in coordination of care (as documented) at patient's floor/unit and/or counseling patient: Coding Level of Care Code 76832 SUB INP/OBS CARE 2/35MIN Diagnoses Bilateral ureteral calculi N20.1 Emphysematous pyelonephritis N12
--- NOTE | 2024-12-27 10:12 | Nephrology Progress Note ---
Date of Service December 27, 2024 Assessment & Plan (1) KATHARINE (acute kidney injury): Plan: Demonstrating post ATN/obstructive diuresis. BP and volume status acceptable. Electrolytes notable for mild hyperkalemia. No indication for dialysis at this time. KATHARINE attributed to ATN secondary to ascending emphysematous pyelonephritis, obstruction, hypotension, anemia, and contrast nephropathy. Losartan held. Metformin held. Medications appropriate for kidney function. Transitioned from Xarelto to Lovenox due to kidney dysfunction. Goal is to encourage even to slightly negative fluid balance. Document strict I/O's. Check serum metabolic profile tomorrow AM. Renal diet. Lokelma x 1 dose will be provided now for hyperkalemia. (2) CKD (chronic kidney disease): Plan: Baseline creatinine unknown. (3) Breast mass: Plan: Biopsy to be coordinated as outpatient. Noted evidence of bony mets on imaging. Importance of close outpatient follow up stressed. (4) Anemia: Plan: s/p PRBC transfusion x 2 u on 12/23. Venofer 300 mg IV x 2 doses have been provided. Additional 400 mg IV provided today. (5) Hypertension: Plan: Losartan held. BP acceptable. (6) Factor 5 Leiden mutation, heterozygous: Plan: Xarelto to Lovenox prophylaxis for now during KATHARINE. May revisit DOAC therapy with dose adjusted Xarelto vs apixaban at discharge. (7) Nephrolithiasis: Plan: POD #2 s/p BL ureteral stent placement. Close outpatient urology follow up at discharge. (8) Emphysematous pyelonephritis: Plan: Culture +klebsiella. Remains on ceftriaxone. Admission and Anticipated Discharge Date Admission Date: December 20, 2024 Subjective No acute events overnight. Miriam feels well this AM. She reports some weakness and deconditioning from being in the hospital. She expressed interest in exploring PT/rehab post discharge. She denies fevers or chills. She denies pain. Pickett is draining clear yellow urine. She has been slightly polyuric. Edema is improving. She is breathing comfortably. Review of Systems Review of Systems: All systems reviewed & are unremarkable except as noted in HPI & below Physical Exam Constitutional: well developed and + morbidly obese; no acute distress Eyes: no scleral abnormality and no corneal abnormality ENMT: Mouth: no oral mucosal abnormality and oral mucous membranes not dry Neck: normal visual inspection and trachea midline Respiratory: normal respiratory effort Auscultation: lungs clear to auscultation bilaterally and + diminished lung sounds Cardiovascular: Rate/Rhythm: regular rate Heart Sounds: normal S1, normal S2 and + murmur Extremities: + edema Musculoskeletal: Extremities: no cyanosis and no clubbing Skin: normal turgor; no lesions Neurologic: Motor/Sensory: no tremor and no asterixis Psychiatric: Orientation: alert and oriented x 3 Genitourinary: Pickett draining clear yellow urine Results & Data Vital Signs (Past 12 Hours) Vital Signs Temp Pulse Pulse Resp BP Pulse Ox O2 Del Method 12/27/24 08:00 66 12/27/24 07:42 36.6 C 69 18 116/67 91 Room Air 12/27/24 07:05 36.7 C 92 H 18 119/74 96 Room Air 12/27/24 03:00 36.7 C 73 20 112/70 93 Room Air 12/26/24 23:59 37.9 C H 73 20 103/69 90 Room Air Laboratory Results Laboratory Results - last 24 hr 12/27/24 05:53 WBC 4.24 L RBC 2.91 L Hgb 8.0 L Hct 26.2 L MCV 90.0 MCH 27.5 MCHC 30.5 L RDW Std Deviation 58.2 H RDW Coeff of Norma 17.5 H Plt Count 173 MPV 9.1 L Immature Gran % (Auto) 5.7 Neut % (Auto) 68.6 Lymph % (Auto) 12.3 Jackson % (Auto) 8.5 Eos % (Auto) 4.2 Baso % (Auto) 0.7 Neut # (Auto) 2.91 Lymph # (Auto) 0.52 L Jackson # (Auto) 0.36 Eos # (Auto) 0.18 Baso # (Auto) 0.03 Immature Gran # (Auto) 0.24 H Absolute Nucleated RBC 0.02 Nucleated RBC % (auto) 0.5 Polychromasia 1+ Sodium 137 Potassium 5.4 H Chloride 107 Carbon Dioxide 21 Anion Gap 9 BUN 83 H Creatinine 4.70 H* D Est Cr Clr Drug Dosing 14.0 eGFR 9.17 BUN/Creatinine Ratio 17.7 Glucose 95 Calcium 8.3 L PG Care Time/CCT Total # of Minutes Spent Total Time Spent with Patient: Total time spent is greater than 50% in coordination of care (as documented) at patient's floor/unit and/or counseling patient: Coding Level of Care Code 12268 SUB INP/OBS CARE 50MIN Diagnoses KATHARINE (acute kidney injury) N17.9 CKD (chronic kidney disease) N18.9 Breast mass N63.0 Anemia D64.9 Hypertension I10 Factor 5 Leiden mutation, heterozygous D68.51 Nephrolithiasis N20.0 Emphysematous pyelonephritis N12
[2024-12-27] MEDS: SODIUM CHLORIDE 0.9% 500 ML IV ONE (10:38)
[2024-12-27] MEDS: SODIUM ZIRCONIUM CYCLOSILICATE 10 GM PACKET PO SCH (10:42)
[2024-12-27] MEDS: IRON SUCROSE 400 MG in SODIUM CHLORIDE 0.9% 250 ML IV ONE (12:03)
--- NOTE | 2024-12-27 13:54 | Hospitalist Progress Note ---
Date of Service December 27, 2024 Assessment & Plan (1) Dyspnea: Plan: Complicated UTI No leukocytosis. Last fever 12/24/24 UCx positive for 2 species of Klebsiella. Both of these are sensitive to cephalosporins, continue Rocephin. Brief temperature of 37.9*overnight. No current fevers chills or sweats. If recurrent fever then will consult ID however appears to be responding well to stenting and Rocephin. Acute renal failure Renal ultrasound with bilateral stones but no hydro. Suspected to have prerenal depletion/ATN present by diuresis. Due to continued rise in creatinine CT was obtained. Discussed with urology. Bilateral nephro and utero lithiasis. Subsequently underwent stent bilateral stenting 12/26/2024. Will have outpatient follow-up for further management of this, urology has signed off. Appreciate recommendations and intervention. Baseline creatinine 1.82.1. Creatinine downtrending. Bicarb tablets continued Continue Pickett, strict ins and outs Urine output adequate, coloration is much relationship management lead and yellow in color 12/27 Potassium uptrending despite urine output and suspected postobstructive diuresis. 500 cc gentle fluid maintenance given in addition to SZC x 1 Trend BMP Iron deficiency anemia, AOCD Had previously received oral iron Iron studies with suspected ferritin elevation as a phase reactant otherwise consistent iron deficiency. Patient has received 400, 300, 300 mg IV infusions. No additional infusions indicated this hospitalization Hemoglobin stable Likely some anemia of chronic disease with known metastatic breast cancer. Upper GI and colonoscopy negative for bleeding Dyspnea Due to anemia, CHF. CTA during admission with no evidence of PE. Anticoagulated for factor V Leiden. Xarelto resumed initially however this was transitioned to Lovenox per nephrology recommendations Weaned to room air and satting normally Hypertension Hypotension has resolved. Losartan held for renal dysfunction. No additional antihypertensive indicated Right breast cancer with suspected bony metastasis Biopsy for tissue diagnosis is unable to be performed while inpatient Outpatient follow for CT-guided biopsy as outpatient and heme-onc follow-up Factor V Leiden Xarelto was resumed during admission, subsequently temporally transition to Lovenox. Anticipate conversion back to Xarelto on discharge/once stable DVT prophylaxis: Lovenox (2) Iron deficiency: (3) Blood loss anemia: (4) Hypertension: (5) CKD (chronic kidney disease): Admission and Anticipated Discharge Date Admission Date: December 20, 2024 Subjective Seen at bedside this morning. She reports she feels much better today than she did previously. Denies fever chills sweats and pain. Denies chest pain chest pressure. She is somewhat concerned about the outpatient coordination for the biopsies of her breast mass, will review with case management. Was also concerned about her anemia. Reviewed current hemoglobin of 8. Is receiving Venofer transfusions no indication for transfusion today. Patient appreciated of of explanations regarding threshold for transfusion. No other qu estions at time of visit. Physical Exam Physical Exam: General: A&Ox3. NAD. Cooperative. HEENT: Atraumatic, normocephalic. Vision and hearing grossly intact. No conversational dyspnea Pulm: Grossly clear, slightly diminished in the bases but without overt wheezes/rales/crackles Cardiac: RRR, -mrg. Radial pulses intact and symmetrical. : Pickett in place draining light yellow urine, greatly improved color compared to prior Extremities: Bilateral lower extremity pitting edema, improved from prior Results & Data Results & Data Vital Signs (Past 12 Hours) Vital Signs Temp Pulse Pulse Resp BP Pulse Ox O2 Del Method 12/27/24 11:36 36.6 C 70 18 130/75 92 Room Air 12/27/24 08:00 Room Air 12/27/24 08:00 66 12/27/24 07:42 36.6 C 69 18 116/67 91 Room Air 12/27/24 07:05 36.7 C 92 H 18 119/74 96 Room Air 12/27/24 03:00 36.7 C 73 20 112/70 93 Room Air PG Care Time/CCT Total # of Minutes Spent Total Time Spent with Patient: Total time spent is greater than 50% in coordination of care (as documented) at patient's floor/unit and/or counseling patient: Coding Level of Care Code 12704 SUB INP/OBS CARE 3/50MIN Diagnoses Dyspnea on exertion R06.09 Dyspnea type: dyspnea on exertion Iron deficiency E61.1 Blood loss anemia D50.0 Hypertension I10 CKD (chronic kidney disease) N18.9 (1) Dyspnea Dyspnea type: dyspnea on exertion Qualified Code(s): R06.09 - Other forms of dyspnea
[2024-12-28 08:36] LABS: Hematocrit (blood only) 28.2 % (37.0-47.0); Hemoglobin 8.5 g/dl (12.0-16.0); Mean Corpuscular Hemoglobin 27.7 pg (25.0-34.0); Mean Corpuscular Hgb Conc 30.1 g/dL (32.0-36.0); Mean Corpuscular Volume 91.9 fL (80.0-100.0); Mean Platelet Volume 8.9 fL (9.4-12.4); Nucleated RBC # (auto) 0.02 K/uL (0.00-0.12); Nucleated RBC % (auto) 0.5 %; Platelet Count 198 K/uL (130-400); RDW Coefficient of Variation 17.5 % (11.5-14.5); RDW Standard Deviation 58.2 fL (36.4-46.3); Red Blood Count 3.07 M/uL (4.20-5.40); White Blood Count 4.44 K/ul (4.8-10.8)
--- NOTE | 2024-12-28 08:48 | Nephrology Progress Note ---
Date of Service December 28, 2024 Assessment & Plan (1) KATHARINE (acute kidney injury): Plan: * KATHARINE - ATN due to ascending emphysematous pyelonephritis/obstruction, hypotension, anemia, and contrast nephropathy. * Losartan held. Metformin held. * Transitioned from Xarelto to Lovenox due to kidney dysfunction. * Goal is to encourage even to slightly negative fluid balance. * Document strict I/O's. Check serum metabolic profile tomorrow AM. * Renal diet. (2) CKD (chronic kidney disease): Plan: * Baseline creatinine unknown (2.0?) (3) Breast mass: Plan: * Biopsy to be coordinated as outpatient. * Noted evidence of bony mets on imaging. * Patient plans outpatient follow up at [facility] in [place] (4) Anemia: Plan: * s/p PRBC transfusion x 2 u on 12/23 (5) Hypertension: Plan: * Losartan held. BP acceptable. (6) Factor 5 Leiden mutation, heterozygous: Plan: * Xarelto to Lovenox prophylaxis for now during KATHARINE. May revisit DOAC therapy with dose adjusted Xarelto vs apixaban at discharge. (7) Nephrolithiasis: Plan: * s/p BL ureteral stent placement 12/25/24 * Close outpatient urology follow up at discharge. (8) Emphysematous pyelonephritis: Plan: * Culture +klebsiella. Remains on ceftriaxone. Admission and Anticipated Discharge Date Admission Date: December 20, 2024 Subjective Ms. Selby was evaluated in her hospital room this morning. She was breathing comfortably on room air and reported good UO. Ms. Selby denied fever, flank discomfort. She still has a Pickett catheter in place draining clear yellow urine. She hopes to transfer to [facility] early next week and later pursue breast cancer therapy at [facility] Review of Systems Constitutional: no fever Eyes: no problem reported Ear, Nose, Mouth, Throat: no problem reported Respiratory: no cough and no dyspnea Cardiovascular: no chest pain Gastrointestinal: no abdominal pain, no nausea, no vomiting and no diarrhea/loose stools Integumentary: no rash Physical Exam Constitutional: not in distress Eyes: PERRL, conjunctivae normal, anicteric sclerae ENMT: external ear and nose normal, oropharynx normal Neck: trachea midline, no thyromegaly Respiratory: normal respiratory effort, lungs clear to auscultation Cardiovascular: Rate/Rhythm: regular rate and regular rhythm Gastrointestinal (Abdomen): normal bowel sounds, soft, nontender, no hepatosplenomegaly Skin: no rashes, warm and dry Neurologic: Speech / Cognition: normal speech and normal cognition Results & Data Vital Signs (Past 12 Hours) Vital Signs Temp Pulse Pulse Resp BP Pulse Ox O2 Del Method 12/28/24 08:04 36.5 C 67 18 122/68 94 Room Air 12/28/24 07:00 60 12/28/24 03:06 36.5 C 64 18 115/72 92 Room Air 12/28/24 02:00 12/27/24 23:06 36.5 C 75 16 122/68 92 Room Air 12/27/24 21:54 71 O2 Del Method 12/28/24 08:04 12/28/24 07:00 12/28/24 03:06 12/28/24 02:00 Room Air 12/27/24 23:06 12/27/24 21:54 Laboratory Results Laboratory Results - last 24 hr 12/28/24 08:06 WBC 4.44 L RBC 3.07 L Hgb 8.5 L Hct 28.2 L MCV 91.9 MCH 27.7 MCHC 30.1 L RDW Std Deviation 58.2 H RDW Coeff of Norma 17.5 H Plt Count 198 MPV 8.9 L Immature Gran % (Auto) 8.3 Neut % (Auto) 69.1 Lymph % (Auto) 13.1 Zavala % (Auto) 4.3 Eos % (Auto) 4.5 Baso % (Auto) 0.7 Neut # (Auto) 3.07 Lymph # (Auto) 0.58 L Zavala # (Auto) 0.19 Eos # (Auto) 0.20 Baso # (Auto) 0.03 Immature Gran # (Auto) 0.37 H Absolute Nucleated RBC 0.02 Nucleated RBC % (auto) 0.5 Polychromasia 1+ Tear Drop Cells 1+ Sodium 139 Potassium 4.9 Chloride 107 Carbon Dioxide 24 Anion Gap 8 BUN 74 H Creatinine 3.72 H D Est Cr Clr Drug Dosing 17.7 eGFR 12.14 BUN/Creatinine Ratio 19.9 Glucose 135 H Calcium 8.6 PG Care Time/CCT Total # of Minutes Spent Total Time Spent with Patient: Total time spent is greater than 50% in coordination of care (as documented) at patient's floor/unit and/or counseling patient: Coding Level of Care Code 53218 SUB INP/OBS CARE 350MIN Diagnoses KATHARINE (acute kidney injury) N17.9 CKD (chronic kidney disease) N18.9 Breast mass N63.0 Anemia D64.9 Hypertension I10 Factor 5 Leiden mutation, heterozygous D68.51 Nephrolithiasis N20.0 Emphysematous pyelonephritis N12
[2024-12-28 08:54] LABS: BUN Creatinine Ratio 19.9 (10-20); Calcium 8.6 mg/dl (8.6-10.3); Creatinine Clr Calc Pharmacy 17.7 ml/min; Potassium 4.9 mmol/L (3.5-5.1)
[2024-12-28 08:56] LABS: Basophils # (auto) 0.03 K/uL (0.00-0.20); Basophils % (auto) 0.7 %; Eosinophils % (auto) 4.5 %; Immature Granulocytes # (auto) 0.37 K/uL (0.01-0.20); Immature Granulocytes % (auto) 8.3 %; Lymphocytes # (auto) 0.58 K/uL (1.20-3.40); Lymphocytes % (auto) 13.1 %; Monocytes # (auto) 0.19 K/uL (0.11-0.59); Monocytes % (auto) 4.3 %; Neutrophils # (auto) 3.07 K/uL (1.40-6.50); Neutrophils % (auto) 69.1 %; Polychromasia 1+; Tear Drop Cells 1+
--- NOTE | 2024-12-28 10:01 | Hospitalist Progress Note ---
Date of Service December 28, 2024 Assessment & Plan (1) Dyspnea: Plan: 74-year-old with history of anemia, CKD, hypertension who presented with acute renal failure and UTI, initially suspected to have ATN/sepsis with intervascular depletion within normal ultrasound however subsequently with evidence of obstructive nephropathy on follow-up CT. Post urologic stenting is having significant diuresis without chemical diuretics, is undergoing treatment for complicated emphysematous Melvin, and quires further monitoring for both progression of her renal function and complicated UTI. Urine cultures were positive for 2 different species of cephalosporin sensitive Klebsiella however despite treatment does have intermittent borderline fevers for which ID was consulted. Complicated UTI No leukocytosis. UCx positive for 2 species of Klebsiella. Both of these are sensitive to cephalosporins, continue Rocephin. Tmax last 24 hours 37.7. Given sensitivities of both Klebsiella isolates to rocephin but recurrent borderline fever w/ emphysematous pyelo ID consult placed Acute renal failure Renal ultrasound with bilateral stones but no hydro. Suspected to have prerenal depletion/ATN worsened by diuresis. Due to continued rise in creatinine CT was obtained. Discussed with urology. Bilateral nephro and utero lithiasis. Subsequently underwent stent bilateral stenting 12/26/2024. Will have outpatient follow-up for further management of this, urology has signed off. Appreciate recommendations and intervention. Baseline creatinine 1.82.1. Creatinine continues to downtrend Continue Pickett, strict ins and outs Potassium has normalized 24-hour urine output >3000 cc without diuretics. Iron deficiency anemia, AOCD Had previously received oral iron Iron studies with suspected ferritin elevation as a phase reactant otherwise consistent iron deficiency. Patient has received 400, 300, 300 mg IV infusions. No additional infusions indicated at this time Hemoglobin stable, uptrending 8.5 on 12/28 Upper GI and colonoscopy negative for bleeding Dyspnea Due to anemia, CHF. CTA during admission with no evidence of PE. Anticoagulated for factor V Leiden. Xarelto resumed initially however this was transitioned to Lovenox per nephrology recommendations Weaned to room air and satting normally. Having postobstructive diuresis without chemical diuretics. Continue to monitor Hypertension Hypotension has resolved. Losartan held for renal dysfunction. Normotensive 12/28 Right breast cancer with suspected bony metastasis Biopsy for tissue diagnosis is unable to be performed while inpatient Outpatient follow for CT-guided biopsy as outpatient and heme-onc follow-up Factor V Leiden Xarelto was resumed during admission, subsequently temporally transition to Lovenox. Anticipate conversion back to Xarelto on discharge/once stable DVT prophylaxis: Lovenox (2) Iron deficiency: (3) Blood loss anemia: (4) Hypertension: (5) CKD (chronic kidney disease): Admission and Anticipated Discharge Date Admission Date: December 20, 2024 Subjective Seen at the bedside. Sitting up in her chair. Comfortable. No fevers chills or sweats. Total output last 24 hours 3650 cc. No overnight events. She reports that her legs still feel swollen and thinks the fluid is a tiny bit better today than it has been in the past. Patient was concerned about the potential need for dialysis. Discussed her kidney function, and that she is diuresing well however indication for dialysis would be inability other volume overload or electrolyte instability/hyperkalemia. Some concern given her need for Lokelma and hyperkalemia yesterday, will continue to follow her electrolytes daily and output over time. Physical Exam Physical Exam: General: A&Ox3. NAD. Cooperative. HEENT: Atraumatic, normocephalic. Vision and hearing grossly intact. No conversational dyspnea Pulm: Diminished, otherwise clear and without wheezes/rales Cardiac: RRR, -mrg. Radial pulses intact and symmetrical. : Pickett in place draining light yellow urine Extremities: Bilateral lower extremity pitting edema Results & Data Results & Data Vital Signs (Past 12 Hours) Vital Signs Temp Pulse Pulse Resp BP Pulse Ox O2 Del Method 12/28/24 08:04 36.5 C 67 18 122/68 94 Room Air 12/28/24 07:00 60 12/28/24 03:06 36.5 C 64 18 115/72 92 Room Air 12/28/24 02:00 12/27/24 23:06 36.5 C 75 16 122/68 92 Room Air O2 Del Method 12/28/24 08:04 12/28/24 07:00 12/28/24 03:06 12/28/24 02:00 Room Air 12/27/24 23:06 PG Care Time/CCT Total # of Minutes Spent Total Time Spent with Patient: Total time spent is greater than 50% in coordination of care (as documented) at patient's floor/unit and/or counseling patient: Coding Level of Care Code 98922 SUB INP/OBS CARE 350MIN Diagnoses Dyspnea on exertion R06.09 Dyspnea type: dyspnea on exertion Iron deficiency E61.1 Blood loss anemia D50.0 Hypertension I10 CKD (chronic kidney disease) N18.9 (1) Dyspnea Dyspnea type: dyspnea on exertion Qualified Code(s): R06.09 - Other forms of dyspnea
[2024-12-29 06:32] LABS: Hematocrit (blood only) 26.8 % (37.0-47.0); Hemoglobin 8.1 g/dl (12.0-16.0); Mean Corpuscular Hemoglobin 27.5 pg (25.0-34.0); Mean Corpuscular Hgb Conc 30.2 g/dL (32.0-36.0); Mean Corpuscular Volume 90.8 fL (80.0-100.0); Mean Platelet Volume 9.2 fL (9.4-12.4); Nucleated RBC # (auto) 0.03 K/uL (0.00-0.12); Nucleated RBC % (auto) 0.6 %; Platelet Count 207 K/uL (130-400); RDW Coefficient of Variation 17.5 % (11.5-14.5); RDW Standard Deviation 57.7 fL (36.4-46.3); Red Blood Count 2.95 M/uL (4.20-5.40); White Blood Count 5.35 K/ul (4.8-10.8)
[2024-12-29 06:53] LABS: BUN Creatinine Ratio 20.8 (10-20); Calcium 8.6 mg/dl (8.6-10.3); Creatinine Clr Calc Pharmacy 19.6 ml/min; Potassium 5.1 mmol/L (3.5-5.1)
[2024-12-29 07:17] LABS: Basophils # (auto) 0.03 K/uL (0.00-0.20); Basophils % (auto) 0.6 %; Eosinophils # (auto) 0.19 K/uL (0.00-0.50); Eosinophils % (auto) 3.6 %; Immature Granulocytes # (auto) 0.48 K/uL (0.01-0.20); Lymphocytes # (auto) 0.73 K/uL (1.20-3.40); Lymphocytes % (auto) 13.6 %; Monocytes # (auto) 0.43 K/uL (0.11-0.59); Neutrophils # (auto) 3.49 K/uL (1.40-6.50); Neutrophils % (auto) 65.2 %; Tear Drop Cells 1+
[2024-12-29] MEDS: POLYETHYLENE (MIRALAX) 17 GM PACK PO PRN (08:42)
--- NOTE | 2024-12-29 08:54 | Nephrology Progress Note ---
Date of Service December 29, 2024 Assessment & Plan (1) KATHARINE (acute kidney injury): Plan: * KATHARINE - ATN due to ascending emphysematous pyelonephritis/obstruction, hypotension, anemia, and contrast nephropathy * Patient is in recovery phase. Cr has improved from 3.7 to 3.5 * Losartan held. Metformin held. * Transitioned from Xarelto to Lovenox due to kidney dysfunction. * Goal is to encourage even to slightly negative fluid balance. * Will remove Pickett catheter today but ask patient to collect urine for I&O's * Check serum metabolic profile tomorrow AM. * Renal diet. (2) CKD (chronic kidney disease): Plan: * Baseline creatinine unknown (2.0?) (3) Breast mass: Plan: * Biopsy to be coordinated as outpatient. * Noted evidence of bony mets on imaging. * Patient plans outpatient follow up at [facility] in [place] (4) Anemia: Plan: * s/p PRBC transfusion x 2 u on 12/23 * Hgb remains stable at 8.1 (5) Hypertension: Plan: * Losartan held. BP acceptable. (6) Factor 5 Leiden mutation, heterozygous: Plan: * Xarelto to Lovenox prophylaxis for now during KATHARINE. May revisit DOAC therapy with dose adjusted Xarelto vs apixaban at discharge. (7) Nephrolithiasis: Plan: * s/p BL ureteral stent placement 12/25/24 * Close outpatient urology follow up at discharge. (8) Emphysematous pyelonephritis: Plan: * Culture +klebsiella. Remains on ceftriaxone. Admission and Anticipated Discharge Date Admission Date: December 20, 2024 Subjective Ms. Selby was evaluated in her hospital room this morning. Ms. Selby denied fever, flank discomfort. She still has a Ipckett catheter in place draining clear yellow urine. She hopes to transfer to [facility] early next week and later pursue breast cancer therapy at [facility] Review of Systems Constitutional: no fever Eyes: no problem reported Ear, Nose, Mouth, Throat: no problem reported Respiratory: no cough and no dyspnea Cardiovascular: no chest pain Gastrointestinal: no abdominal pain, no nausea, no vomiting and no diarrhea/loose stools Integumentary: no rash Physical Exam Constitutional: not in distress Eyes: PERRL, conjunctivae normal, anicteric sclerae ENMT: external ear and nose normal, oropharynx normal Neck: trachea midline, no thyromegaly Respiratory: normal respiratory effort, lungs clear to auscultation Cardiovascular: Rate/Rhythm: regular rate and regular rhythm Gastrointestinal (Abdomen): normal bowel sounds, soft, nontender, no hepatosplenomegaly Skin: no rashes, warm and dry Neurologic: Speech / Cognition: normal speech and normal cognition Results & Data Vital Signs (Past 12 Hours) Vital Signs Temp Pulse Pulse Resp BP Pulse Ox O2 Del Method 12/29/24 07:41 36.4 C L 60 18 128/75 95 Room Air 12/29/24 03:13 36.3 C L 66 16 108/66 93 Room Air 12/28/24 23:34 36.3 C L 78 18 104/64 93 Room Air 12/28/24 21:45 77 Laboratory Results Laboratory Results - last 24 hr 12/28/24 12/29/24 08:06 06:04 WBC 5.35 RBC 2.95 L Hgb 8.1 L Hct 26.8 L MCV 90.8 MCH 27.5 MCHC 30.2 L RDW Std Deviation 57.7 H RDW Coeff of Norma 17.5 H Plt Count 207 MPV 9.2 L Immature Gran % (Auto) 8.3 9.0 Neut % (Auto) 69.1 65.2 Lymph % (Auto) 13.1 13.6 [place] % (Auto) 4.3 8.0 Eos % (Auto) 4.5 3.6 Baso % (Auto) 0.7 0.6 Neut # (Auto) 3.07 3.49 Lymph # (Auto) 0.58 L 0.73 L [place] # (Auto) 0.19 0.43 Eos # (Auto) 0.20 0.19 Baso # (Auto) 0.03 0.03 Immature Gran # (Auto) 0.37 H 0.48 H Absolute Nucleated RBC 0.03 Nucleated RBC % (auto) 0.6 Polychromasia 1+ Tear Drop Cells 1+ 1+ Sodium 139 139 Potassium 4.9 5.1 Chloride 107 108 H Carbon Dioxide 24 23 Anion Gap 8 8 BUN 74 H 67 H Creatinine 3.72 H D 3.22 H D Est Cr Clr Drug Dosing 17.7 19.6 eGFR 12.14 14.44 BUN/Creatinine Ratio 19.9 20.8 H Glucose 135 H 95 Calcium 8.6 8.6 PG Care Time/CCT Total # of Minutes Spent Total Time Spent with Patient: Total time spent is greater than 50% in coordination of care (as documented) at patient's floor/unit and/or counseling patient: Coding Level of Care Code 69685 SUB INP/OBS CARE 3/50MIN Diagnoses KATHARINE (acute kidney injury) N17.9 CKD (chronic kidney disease) N18.9 Breast mass N63.0 Anemia D64.9 Hypertension I10 Factor 5 Leiden mutation, heterozygous D68.51 Nephrolithiasis N20.0 Emphysematous pyelonephritis N12
[2024-12-29] MEDS: cefTRIAXone SODIUM 2,000 MG/50 ML BAG IV SCH (13:45)
--- NOTE | 2024-12-29 16:11 | Hospitalist Progress Note ---
Date of Service December 29, 2024 Assessment & Plan (1) Dyspnea: Plan: 74-year-old with history of anemia, CKD, hypertension who presented with acute renal failure and UTI, initially suspected to have ATN/sepsis with intervascular depletion within normal ultrasound however subsequently with evidence of obstructive nephropathy on follow-up CT. Post urologic stenting is having significant diuresis without chemical diuretics, is undergoing treatment for complicated emphysematous Melvin, and quires further monitoring for both progression of her renal function and complicated UTI. Urine cultures were positive for 2 different species of cephalosporin sensitive Klebsiella however despite treatment does have intermittent borderline fevers for which ID was consulted. Complicated UTI No leukocytosis. UCx positive for 2 species of Klebsiella. Both of these are sensitive to cephalosporins, continue Rocephin. No further fevers overnight Continued on Rocephin Acute renal failure Suspect combination ATN and obstructive. Underwent stent bilateral stenting 12/26/2024. Will have outpatient follow-up for further management of this, urology has signed off. Appreciate recommendations and intervention. Baseline creatinine 1.82.1. Creatinine continues to downtrend Continues with significant diuresis greater than 2 L. Some unmeasured voids since Pickett was removed and patient with some difficulty with incontinence. Tract ins and outs as best possible. Potassium slightly uptrending but still within with normal range. Trend in the morning. Lokelma x 1 if elevated If volume status and electrolytes are stable patient has no needs for temporary dialysis hopefully transition to rehab and the near future Iron deficiency anemia, AOCD Had previously received oral iron Iron studies with suspected ferritin elevation as a phase reactant otherwise consistent iron deficiency. Patient has received Venofer x 3 this admission. No additional infusions indicated at this time Upper GI and colonoscopy negative for bleeding Hemoglobin stable Dyspnea Due to anemia, CHF. CTA during admission with no evidence of PE. Anticoagulated Weaned to room air and satting normally. Having postobstructive diuresis without chemical diuretics. Continue to monitor Hypertension Hypotension has resolved. Losartan held for renal dysfunction. Normotensive Right breast cancer with suspected bony metastasis Biopsy for tissue diagnosis is unable to be performed while inpatient Outpatient follow for CT-guided biopsy as outpatient and heme-onc follow-up Factor V Leiden Continue Lovenox Transition to Xarelto when renally appropriate DVT prophylaxis: Lovenox (2) Iron deficiency: (3) Blood loss anemia: (4) Hypertension: (5) CKD (chronic kidney disease): Admission and Anticipated Discharge Date Admission Date: December 20, 2024 Subjective Seen at the bedside. Pickett removed. Doing well but does have trouble with incontinence and is not able to track her output very well as she leaks urine when having bowel movements. She does however overall feel better. No chest pain chest pressure lightheadedness or dizziness. Lower extremity swelling persists she thinks a little bit improved. No flank tenderness. Denies fevers or chills. Physical Exam Physical Exam: General: A&Ox3. NAD. Cooperative. HEENT: Atraumatic, normocephalic. Vision and hearing grossly intact. No conversational dyspnea Pulm: Diminished, otherwise clear and without wheezes/rales Cardiac: RRR, -mrg. Radial pulses intact and symmetrical. Extremities: Bilateral lower extremity pitting edema Results & Data Results & Data Vital Signs (Past 12 Hours) Vital Signs Temp Pulse Pulse Resp BP Pulse Ox O2 Del Method 12/29/24 15:52 36.6 C 17 111/62 96 Room Air 12/29/24 15:12 64 12/29/24 11:14 36.3 C L 60 20 113/68 92 Room Air 12/29/24 08:00 Room Air 12/29/24 08:00 63 12/29/24 07:41 36.4 C L 60 18 128/75 95 Room Air PG Care Time/CCT Total # of Minutes Spent Total Time Spent with Patient: Total time spent is greater than 50% in coordination of care (as documented) at patient's floor/unit and/or counseling patient: Coding Level of Care Code 67832 SUB INP/OBS CARE 3/50MIN Diagnoses Dyspnea on exertion R06.09 Dyspnea type: dyspnea on exertion Iron deficiency E61.1 Blood loss anemia D50.0 Hypertension I10 CKD (chronic kidney disease) N18.9 (1) Dyspnea Dyspnea type: dyspnea on exertion Qualified Code(s): R06.09 - Other forms of dyspnea
[2024-12-29] MEDS ORDERED: cefTRIAXone SODIUM 2,000 MG/50 ML BAG IV SCH (17:15)
[2024-12-30 07:32] LABS: Hematocrit (blood only) 26.6 % (37.0-47.0); Hemoglobin 8.1 g/dl (12.0-16.0); Mean Corpuscular Hemoglobin 27.6 pg (25.0-34.0); Mean Corpuscular Hgb Conc 30.5 g/dL (32.0-36.0); Mean Corpuscular Volume 90.5 fL (80.0-100.0); Mean Platelet Volume 9.5 fL (9.4-12.4); Nucleated RBC # (auto) 0.02 K/uL (0.00-0.12); Nucleated RBC % (auto) 0.4 %; Platelet Count 222 K/uL (130-400); RDW Coefficient of Variation 17.4 % (11.5-14.5); RDW Standard Deviation 56.3 fL (36.4-46.3); Red Blood Count 2.94 M/uL (4.20-5.40); White Blood Count 5.09 K/ul (4.8-10.8)
[2024-12-30 07:36] LABS: BUN Creatinine Ratio 22.2 (10-20); Calcium 8.6 mg/dl (8.6-10.3); Creatinine Clr Calc Pharmacy 24.2 ml/min; Potassium 5.5 mmol/L (3.5-5.1)
[2024-12-30 07:53] VITALS: TEMP 97.7
--- NOTE | 2024-12-30 08:28 | Nephrology Progress Note ---
Date of Service December 30, 2024 Assessment & Plan (1) KATHARINE (acute kidney injury): Plan: * KATHARINE - ATN due to ascending emphysematous pyelonephritis/obstruction, hypotension, anemia, and contrast nephropathy * Patient is in recovery phase. Cr has improved from 3.7 to 2.6 * Continue to hold losartan and metformin * Renal diet * Please arrange nephrology follow up w/ Dr. Nicole in 2 weeks ([phone]). Patient will need BMP, urinalysis w/ microscopy and urine albumin to creatinine ratio drawn 2 days prior to OV (2) CKD (chronic kidney disease): Plan: * Baseline creatinine unknown (possibly 2.0?) (3) Breast mass: Plan: * Biopsy to be coordinated as outpatient. * Noted evidence of bony mets on imaging. * Patient plans outpatient follow up at [facility] in [place] (4) Anemia: Plan: * s/p PRBC transfusion x 2 u on 12/23 * Hgb remains stable at 8.1 (5) Hypertension: Plan: * Losartan held. BP acceptable. (6) Factor 5 Leiden mutation, heterozygous: Plan: * Xarelto stopped due to KATHARINE * Consider substituting apixaban at time of discharge (7) Nephrolithiasis: Plan: * s/p BL ureteral stent placement 12/25/24 * Close outpatient urology follow up at discharge. (8) Emphysematous pyelonephritis: Plan: * Culture +klebsiella. Remains on ceftriaxone. Admission and Anticipated Discharge Date Admission Date: December 20, 2024 Subjective Ms. Selby was evaluated in her hospital room this morning. She denied fever, flank discomfort. Pickett catheter was removed yesterday. Ms. Selby hopes to transfer to [facility] today or tomorrow and later pursue breast cancer therapy at [facility] Review of Systems Constitutional: no fever Eyes: no problem reported Ear, Nose, Mouth, Throat: no problem reported Respiratory: no cough and no dyspnea Cardiovascular: no chest pain Gastrointestinal: no abdominal pain, no nausea, no vomiting and no diarrhea/loose stools Integumentary: no rash Physical Exam Constitutional: not in distress Eyes: PERRL, conjunctivae normal, anicteric sclerae ENMT: external ear and nose normal, oropharynx normal Neck: trachea midline, no thyromegaly Respiratory: normal respiratory effort, lungs clear to auscultation Cardiovascular: Rate/Rhythm: regular rate and regular rhythm Gastrointestinal (Abdomen): normal bowel sounds, soft, nontender, no hepatosplenomegaly Skin: no rashes, warm and dry Neurologic: Speech / Cognition: normal speech and normal cognition Results & Data Vital Signs (Past 12 Hours) Vital Signs Temp Pulse Pulse Resp BP Pulse Ox O2 Del Method 12/30/24 07:53 36.5 C 64 20 116/76 93 Room Air 12/30/24 04:40 36.6 C 66 16 101/63 92 Room Air 12/30/24 00:17 36.7 C 74 16 116/70 92 Room Air 12/29/24 21:37 69 Laboratory Results Laboratory Results - last 24 hr 12/30/24 06:51 WBC 5.09 RBC 2.94 L Hgb 8.1 L Hct 26.6 L MCV 90.5 MCH 27.6 MCHC 30.5 L RDW Std Deviation 56.3 H RDW Coeff of Norma 17.4 H Plt Count 222 MPV 9.5 Absolute Nucleated RBC 0.02 Nucleated RBC % (auto) 0.4 Sodium 139 Potassium 5.5 H Chloride 109 H Carbon Dioxide 24 Anion Gap 6 BUN 58 H Creatinine 2.61 H D Est Cr Clr Drug Dosing 24.2 eGFR 18.58 BUN/Creatinine Ratio 22.2 H Glucose 96 Calcium 8.6 PG Care Time/CCT Total # of Minutes Spent Total Time Spent with Patient: Total time spent is greater than 50% in coordination of care (as documented) at patient's floor/unit and/or counseling patient: Coding Level of Care Code 39216 SUB INP/OBS CARE 3/50MIN Diagnoses KATHARINE (acute kidney injury) N17.9 CKD (chronic kidney disease) N18.9 Breast mass N63.0 Anemia D64.9 Hypertension I10 Factor 5 Leiden mutation, heterozygous D68.51 Nephrolithiasis N20.0 Emphysematous pyelonephritis N12
[2024-12-30 08:43] LABS: Basophils # (auto) 0.02 K/uL (0.00-0.20); Basophils % (auto) 0.4 %; Eosinophils # (auto) 0.19 K/uL (0.00-0.50); Eosinophils % (auto) 3.7 %; Immature Granulocytes # (auto) 0.34 K/uL (0.01-0.20); Immature Granulocytes % (auto) 6.7 %; Lymphocytes # (auto) 0.53 K/uL (1.20-3.40); Lymphocytes % (auto) 10.4 %; Monocytes # (auto) 0.27 K/uL (0.11-0.59); Monocytes % (auto) 5.3 %; Neutrophils # (auto) 3.74 K/uL (1.40-6.50); Neutrophils % (auto) 73.5 %
[2024-12-30] MEDS: SODIUM ZIRCONIUM CYCLOSILICATE 10 GM PACKET PO ONE ×2 (09:36→16:50)
--- NOTE | 2024-12-30 10:39 | Infectious Disease Consult ---
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 She was seen at GI outpatient office for f/u of her anemia and lab work showed Hb 7.0 with c/o SOB so patient was sent to ED. Initially afebrile, on room air. WBC 4.20. Cr 2.13. Ddimer 4600. CXR with patchy airspace shadowing with interstitial thickening in mid-lower zones bl suggesting pulmonary edema. CTA chest with partially imaged right breast malignancy, multifocal extensive osseous mets, no PE, mild aneurysmal dilation of ascending aorta 4.4cm, cardiomegaly with pulmonary edema. LE doppler with nonocclusive DVT in right leg. TTE technically difficult, normal LVEF. She was initially started on heparin gtt for PE which was stopped after negative CTA and started on diuresis. She had a UA on 12/23 with > 50 WBC. Renal u/s 12/23 with multiple bl renal calculi, no hydronephrosis. Course c/b fever to 38.4 on 12/24, BP intermittently 80-90s during admission. She also had worsening Cr peaking up to 5.08 on 12/25. CTAP w/o IV on 12/25 with multiple bl renal calculi up to 3cm on right, bl ureteral calculi with minimal bl hydro, gas within renal collecting system suggestive of emphysematous pyelonephritis; diffuse osseous mets. S/p OR 12/25 and underwent bilateral ureteral stent placement (per op note, purulent discharge from both ureters). Admitted to ICU postop. She has been getting CTX. ID consulted 12/30. Will plan for at least 2 weeks of abx for emphysematous pyelonephritis. She does have ureteral stents and ideally these should be removed while on abx. Will avoid fluoroquinolones given her aortic aneurysmal dilation. Will also avoid Bactrim given her renal function and hyperkalemia. # Emphysematous pyelonephritis 2/2 K pneumoniae in setting of bl ureteral calculi s/p bl ureteral stents 12/25 # KATHARINE on CKD improving # Breast mass, metastases - continue CTX 2g IV daily - when shes ready for discharge, abx can be changed to augmentin 500mg PO bid for CrCl 24 (for CrCl > 30, dose is 875mg PO bid) - will treat for duration of 2 weeks starting 12/25, end through 01/08 if ureteral stents are to be removed after 01/08, then extend abx for a few more days until they are removed (but no longer than a week to avoid prolonged abx course) - note ureteral stents will be a nidus of infection and should be removed when safe to do so Will discontinue active follow up at this time. Please do not hesitate to reconsult the Infectious Diseases service as needed. Bernarda Flood MD [facility], Division of Infectious Diseases [employer]: [phone] Consultation Information Consultation was provided via telemedicine using two-way real-time interactive telecommunication between the patient and the telemedicine provider. For the duration of the visit, the provider was performing the assessment from a different facility than the patient. This includesuse of bluetooth stethoscope forauscultationperformed by the telepresenter that the telemedicine provider can hear if described in the physical exam. Production Tech contact information: Please call [facility] Call Center [phone]. (Phone Number For Physician Use Only) After establishing a telemedicine visit, patient was: Patient was verified with two unique identifiers, Patient/authorized rep acknowledged consent and understanding and Gave permission to continue telehealth session Time Spent with Patient: Initial => 75 min History of Present Illness Reason for Consultation: emphysematous pyelo, recurrent borderline fever Attending Physician: Mark Sargent MD History of Present Illness 74yo F with h/o CKD, Factor V Leiden, PE 15yrs ago (anticoag stopped 09/10 d/t anemia), HTN who presented on 12/20 with abnormal labs and SOB. She was seen at GI outpatient office for f/u of her anemia and lab work showed Hb 7.0 with c/o SOB so patient was sent to ED. Initially afebrile, on room air. WBC 4.20. Cr 2.13. Ddimer 4600. CXR with patchy airspace shadowing with interstitial thickening in mid-lower zones bl suggesting pulmonary edema. CTA chest with partially imaged right breast malignancy, multifocal extensive osseous mets, no PE, mild aneurysmal dilation of ascending aorta 4.4cm, cardiomegaly with pulmonary edema. LE doppler with nonocclusive DVT in right leg. TTE technically difficult, normal LVEF. She was initially started on heparin gtt for PE which was stopped after negative CTA and started on diuresis. She had a UA on 12/23 with > 50 WBC. Renal u/s 12/23 with multiple bl renal calculi, no hydronephrosis. Course c/b fever to 38.4 on 12/24, BP intermittently 80-90s during admission. She also had worsening Cr peaking up to 5.08 on 12/25. CTAP w/o IV on 12/25 with multiple bl renal calculi up to 3cm on right, bl ureteral calculi with minimal bl hydro, gas within renal collecting system suggestive of emphysematous pyelonephritis; diffuse osseous mets. S/p OR 12/25 and underwent bilateral ureteral stent placement (per op note, purulent discharge from both ureters). Admitted to ICU postop. She has been getting CTX. ID consulted 12/30. On evaluation, patient reports feeling well. She has urinary incontinence and currently has a purewick. No issues with urination. No abdominal pain or diarrhea. No other complaints. Feels SOB is better. Allergies Allergy/AdvReac Type Severity Reaction Status Date / Time No Known Allergies Allergy Verified 12/20/24 18:03 Home Medications Medication Instructions Recorded Confirmed Type cholecalciferol (vitamin D3) 50 50 mcg PO DAILY 09/16/24 12/20/24 History mcg (2,000 unit) capsule folic acid 1 mg tablet 1 mg PO DAILY 09/16/24 12/20/24 History losartan 50 mg tablet 50 mg PO QAM 09/16/24 12/20/24 History acetaminophen 650 mg 1,300 mg PO Q12H PRN Pain 12/10/24 12/20/24 History tablet,extended release cyanocobalamin (vitamin B-12) 5,000 mcg sublingual DAILY 12/20/24 12/20/24 History 5,000 mcg sublingual tablet (Vitamin B-12) Patient History Medical History (Updated 12/26/24 @ 02:51 by Celia Garnica PA-C) 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 embolism in past Arthritis Urinary incontinence Hx pulmonary embolism aprox 15 years ago- had pos genetic testing - on xarelto- , - stopped in aug 2024 -no clots since Hx of flexible sigmoidoscopy Anemia Hypertension CKD (chronic kidney disease) Heme positive stool Surgical History Hx of cardiac catheterization x2 "many years ago" [place]- no OR- no stents [place]- no OR- no stents last one found showed slight blockages but told it was due to age. no longer sees cardio (can't remember name) History of surgery on lower extremity (2016) hematoma removed, after fall Hx of tonsillectomy (1956) Hx of laparoscopy x2, 40 years ago Family History Father Stroke Mother Breast cancer Colorectal cancer Denies family history of Crohn's disease Ulcerative colitis Social History (Updated 09/16/24 @ 15:03 by Negro Zee MA) Smoking Status: Never smoker Second Hand Exposure: No; Do You Dip or Chew Tobacco: No; Hx Alcohol Use: No Hx Substance Use: No Preferred Language: Kuwaiti Communication Ability: Effective [employer] Production Worker Required: No Beliefs That Will Affect Care: None Current Living Situation: Alone Current Living Situation Comment: Lives alone with cat Other Information That Helps Us Care for You: No Feels Safe at Home: Yes Safety Concerns: Feels Safe At This Time Assistive Devices: Cane and Walker Review of System 10-point review of systems reviewed and are negative except for as above. Physical Exam Physical Exam: General: Awake, alert, no acute distress HEENT: NC/AT, EOMI, mmm Neck: supple Lungs: respirations non-labored Heart: nl peripheral perfusion Abdomen: soft, NT/ND Ext: warm Skin: no rash : urine clear yellow Neuro: moving all extremities Results & Data Vital Signs (Past 12 Hours) Vital Signs Temp Pulse Resp BP Pulse Ox O2 Del Method 12/30/24 07:53 36.5 C 64 20 116/76 93 Room Air 12/30/24 04:40 36.6 C 66 16 101/63 92 Room Air 12/30/24 00:17 36.7 C 74 16 116/70 92 Room Air Laboratory Results Labs reviewed. Diagnostic Findings Imaging reviewed.
[2024-12-30 11:32] VITALS: BP 108/69; PULSE 64; RESP 18; O2SAT 94
--- NOTE | 2024-12-30 12:32 | Discharge Summary ---
Discharge Summary Date of Service December 30, 2024 Principal Dx & Hospital Course #1 = Principal Diagnosis (1) Dyspnea: 74-year-old with history of anemia, CKD, hypertension who presented with acute renal failure and UTI, initially suspected to have ATN/sepsis with intervascular depletion within normal ultrasound however subsequently with evidence of obstructive nephropathy on follow-up CT. Post urologic stenting is having significant diuresis without chemical diuretics, is undergoing treatment for complicated emphysematous Melvin, and quires further monitoring for both progression of her renal function and complicated UTI. Urine cultures were positive for 2 different species of cephalosporin sensitive Klebsiella however despite treatment does have intermittent borderline fevers for which ID was consulted. She subsequently defervesced, remained stable and was doing well. ID was consulted due to the fevers as noted however given her good progression and defervesced since was recommended to transition to Augmentin on discharge with extension for a few days past when her stents are removed. She remained otherwise well. Some concern for left arm cellulitis on assessment this was not erythematous or warm and antibiotics for this were not recommended specifically, she is maintained on Augmentin regardless. Suspected to have some infiltration and swelling. She is on therapeutic anticoagulation. She was seen by nephrology day of discharge. Agree with continuing to follow output, and will need follow-up BMP/urinalysis with microscopy/urine albumin. She remains with a breast mass with suspected bony mets on imaging, this is pending follow-up and biopsy with [facility] oncology group. Patient was initially on Lovenox dose reduced for renal dysfunction pending biopsy however developed a upper extremity DVT and has been started on full dose Eliquis as a result. She is aware that this complicates the timing of her biopsies however hopefully her renal function will continue to improve and Lovenox bridging at full dosing will be appropriate. To do as outpatient: Continue antibiotics with Augmentin 500 mg p.o. twice daily. End date 01/08, if ureteral stents removed after this extend antibiotic course for a few more days. If creatinine clearance improves to greater than 30 then dose should be adjusted to 875 mg p.o. twice daily Follow-up with urology for stent removal Daily BMP, potassium evaluation and Lokelma as needed Continue to follow ins and outs When renal function stabilizes/normalizes and is still volume overloaded add cautious diuresis at that time. Follow-up with nephrology Continue oral iron supplementation [facility] with suspected bony mets and outpt biopsies (initially was to followup with [facility], but pt prefers to follow with [facility] and referrals placed) Repeat urinalysis with microscopy, urine albumin to creatinine ratio, BMP prior to nephrology follow-up in 2 weeks Continue Eliquis 10 PO twice daily for 1 week. Next dose due 12/31/2024 5 in the AM. Received a dose of 10 mg at around 5 PM on. On 01/06 transition to 5 mg twice daily dose Complicated UTI No leukocytosis. UCx positive for 2 species of Klebsiella. Both of these are sensitive to cephalosporins, continue Rocephin. ID consulted. Recommended transition to Augmentin on discharge, extend course for few days past stent removal versus completion of course on 01/08, whichever is later Left upper extremity DVT - On evaluation of IV site day of discharge patient was noted to have some thickening/swelling at her prior AC/forearm site. No overlying erythema/tenderness. Ultrasound showed DVT in the basilic and cephalic veins. Patient had been on dose reduced Lovenox and has a history of factor V Leiden with current workup for ongoing malignancy. Due to her creatinine clearance of 26.9 full dose Lovenox was not recommended. Patient was transition to full dose Eliquis. She should continue Eliquis 10 mg twice daily for 1 week and then rhodes sition to 5 mg twice daily dosing. Did discuss with patient that her biopsies will need to be coordinated around this as the benefit of Lovenox is that it could be started and stopped relatively quickly however given her DVT does require full dose treatment at this time. Hopefully once her biopsies are scheduled her renal function will have improved where 1 mg/kg twice daily dosing is appropriate for bridging. Case was discussed with Dr. Gibbs at [facility] prior to discharge given development of DVT and downtrending but still present hyperkalemia at time of discharge. Comfortable with monitoring and further care for these and agrees with Eliquis treatment. Acute renal failure Suspect combination ATN and obstructive. Underwent stent bilateral stenting 12/26/2024. Will have outpatient follow-up for further management of this, urology has signed off. Appreciate recommendations and intervention. Baseline creatinine 1.82.1. Creatinine continues to downtrend Continues with significant diuresis greater than 2 L. Some unmeasured voids since Pickett was removed and patient with some difficulty with incontinence. Tract ins and outs as best possible. Intermittent potassium elevations although patient with good urine output. Intermittent elevations have resolved with spot doses of Lokelma. Continue to follow BMP daily and give Lokelma as needed. Patient did not require temporary dialysis while admitted Potassium 5.5-day of discharge, was given Lokelma and was downtrending on recheck. 1 additional dose given. Signed out directly to [facility] provider Iron deficiency anemia, AOCD Had previously received oral iron Iron studies with suspected ferritin elevation as a phase reactant otherwise consistent iron deficiency. Patient has received Venofer x 3 this admission. No additional infusions indicated at this time Upper GI and colonoscopy negative for bleeding Hemoglobin stable Resume oral iron supplementation Anticoagulation as noted Dyspnea Due to anemia, CHF. CTA during admission with no evidence of PE. Anticoagulated Weaned to room air and satting normally. Having postobstructive diuresis without chemical diuretics. Continue to monitor Chemical diuresis not required at time of discharge, continuing with brisk urine output and postobstructive diuresis. Follow-up with nephrology as noted Hypertension Hypotension has resolved. Losartan held for renal dysfunction. Normotensive. 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 [facility] being [facility]. Was originally planned to f/u with [facility], however prefers to follow w/ [facility]. Referrals placed. Outpatient follow for CT-guided biopsy as outpatient and heme-onc follow-up Factor V Leiden Transition to Eliquis as noted. Patient had had difficulty with warfarin in the past with preferred switch to DOAC therapy. DVT prophylaxis: Anticoagulated (2) Iron deficiency: (3) Blood loss anemia: (4) Hypertension: (5) CKD (chronic kidney disease): Admission HPI Per Admitting Provider Miriam is a 74 yo F with a pmhx of CKD, HTN, and Factor V Leiden mutation with h/o PE 15 yrs ago previously on Xarelto which was discontinued in August 024 who presents to the ER today per provider recommendation due to abnormal labs and dyspnea. She reports that her Xarelto was discontinued by her PCP in August due to new anemia. Pt thinks that she may have been experiencing some mild dyspnea at that time but isn't certain. She was referred to GI and underwent an EGD and colonoscopy in November 2024 here at [facility]. No obvious source of bleeding, she was noted to have polyps. She was seen today for f/u at the GI office and discussed doing a small bowel camera capsule but no definitive decision made regarding this. She has since been off of her Xarelto and she admits that she is not very mobile. She uses a cane to ambulate around her mobile home. GI had recommended that she start taking iron supplementation at her appointment today. She was also reporting worsening dyspnea with exertion for which a CXR was performed. Repeat labs were obtained with a hemoglobin of 7.0 and she was encouraged to go to the ER for further work up. Repeat hgb is 7.3. She has been typed and crossmatched for 1 unit of PRBCs. She reports feelings of her chest feeling "heavy" but denies overt chest pain. Her creatinine is 2.13 with unknown baseline. ER ordered bilateral venous dopplers and has referred to hospital medicine team for admission. Discharge Exam General: A&Ox3. NAD. Cooperative. HEENT: Atraumatic, normocephalic. Vision and hearing grossly intact. No conversational dyspnea Pulm: Diminished, otherwise clear and without wheezes/rales Cardiac: RRR, -mrg. Radial pulses intact and symmetrical. Extremities: Bilateral lower extremity pitting edema. Left upper extremity with some swelling/thickening surrounding her prior AC and anterior forearm IV site. Mild pinkness however no overt warmth/tenderness radial pulses intact bilaterally. Discharge Plan Discharge Items Patient Disposition: Transfer Inpatient Rehab Fac Reason For Visit: ANEMIA, DYSPNEA Discharge Diagnosis: ATN, volume overload, obstructive nephropathy, anemia Activity: Per Instructions section Non-emergency contact: Primary Care Provider and [employer]er Call non-emergency contact if: you have any medication questions, your symptoms worsen and your pain is not controlled Follow-up/Referrals: Diamond Harris MD [Physician] - [facility] [Non-Staff] - 01/13/25 8:00 am (Please call Laura Apple [phone] to go over instructions for mammogram and biopsy and/or if you would need to reschedule. [facility] [address] [address] ) Jolynn Ellison D.O. [Primary Care Provider] - Tristin Sumner MD [Physician] - Diet: Dialysis Renal and Heart Healthy [facility] Attending Provider Instructions: You are seen in the hospital for anemia, kidney injury, complicated urinary tract infection, and dyspnea. You were initially suspected to have a combination of a infection and kidney injury from infection. On further evaluation you were found to have bilateral kidney stones with an obstructive kidney injury. You have been continued on an antibiotic, Augmentin. Please continue Augmentin by mouth twice daily while at rehab. If your kidney function improves to a creatinine clearance greater than 30 the dose of this medication will need to be increased. Please discuss this with your rehab provider. Your urine cultures grew out a bacteria called Klebsiella, 2 different strains of this both of which were sensitive to this antibiotic. You had bilateral ureteral stents placed by urology during admission. You will have outpatient follow-up scheduled for removal of the stents. Your Augmentin above should be extended if needed to cover a few days past whenever the stents are removed, or until 01/08/2025 whichever is longer. You are having significant diuresis without medications following stent placement. Your creatinine was rapidly improving but not yet normal. Your potassium levels were still intermittently elevated but responded well to a medication called Lokelma. Please have your potassium levels checked daily and if they are elevated take a dose of Lokelma. If your potassium levels are consistently increasing or do not respond to Lokelma you may need to return to the hospital for further treatment. Your case was discussed with nephrology prior to discharge we will see you in follow-up. You are found to have a concerning area suspicious for breast cancer with a bony metastasis. Follow-up for biopsies and further evaluation is being scheduled with [facility]. You were found to have iron deficiency anemia during admission. You received iron supplementation. You received 3 doses of IV iron while inpatient. Please continue oral iron supplementation on discharge. Your hemoglobin levels (blood levels) were stable at time of discharge. You had a RIGHT ARM DVT (blood clot) during admission. You have been started on eliquis. Please take eliquis 10mg by mouth twice daily for 1 week, then switch to 5mg twice daily by mouth indefiniately. This is a blood thinner. This replaced the Xarelto you were on previously. If you develop any new or worsening symptoms including fever, chills, sweats, chest pain, chest pressure, difficulty breathing, uncontrolled nausea/vomiting, rash, wheezing, passing out or nearly passing out, bleeding, black/bloody bowel movements, or other new or concerning symptoms please call your primary care physician, or call 911 for re-evaluation in the emergency department if you are very concerned. Pending Studies at Discharge: No Stand-Alone Forms: [facility] Skilled Items Patient informed of condition?: Yes DNR: No Discharge Level of Care: Acute rehab Communicable Disease: No Discharge Prognosis: Stable Lines: None Urinary Catheter: No Medications and DC Order Prescriptions: New nystatin [Nystop] 100,000 unit/gram Powder 1 applic EXT BID Qty: 15 0RF sodium bicarbonate 650 mg Tablet 1,300 mg PO BID Qty: 14 0RF amoxicillin-pot clavulanate [Augmentin] 500-125 mg tablet 1 tab PO BID Qty: 20 0RF Lokelma 10 gram powder in packet 10 g PO DAILY PRN (Reason: potassium >5.2) Qty: 30 0RF Eliquis 5 mg tablet See Rx Instructions .ROUTE .COMPLEX Qty: 74 0RF Rx Instructions: Eliquis 10mg BID for one week, then 5mg BID thereafter. (ONE DOSE GIVEN 5pm 12/30/24. START NEXT HOME DOSE AM 12/31/24) Continued folic acid 1 mg tablet 1 mg PO DAILY cholecalciferol (vitamin D3) 50 mcg (2,000 unit) capsule 50 mcg PO DAILY Rx Instructions: PER PT "RAN OUT ABOUT 3 WEEKS AGO, NEED TO GET MORE". cyanocobalamin (vitamin B-12) [Vitamin B-12] 5,000 mcg Tablet, Sublingual 5,000 mcg SUBLINGUAL DAILY acetaminophen 650 mg Tablet Extended Release 1,300 mg PO Q12H PRN (Reason: Pain) Held losartan 50 mg tablet 50 mg PO QAM Hold Instructions: hold until stable to resume per nephrology and pcp Admission Data Admit Date/Time: 12/20/24 18:42 Attending Provider: Mark Sargent Admit Provider: Myron Green Primary Care Provider: Jolynn Ellison Other Providers: Myron Green; Courtney Edwards; Shanna Montana; Eliazar Silvestre; Kezia Mehta; Genevieve Vogel; Cristhian Guerrero; Mily Bond; [facility] Attending; Jung Anderson; Diamond Harris; Kervin Nicole; Phyllis Rudd; Tristin Sumner; Erika Nathan; Jazzmine Weeks; Bernarda Flood; Fabien Becerra; Jolynn Morales; Neyda Sandoval Hospital Stay Data Consultations 12/20/24 17:59 ED Decision to Admit Stat 12/21/24 15:01 Consult Oncology Routine 12/24/24 08:42 Consult Nephrology Routine 12/25/24 17:44 Consult Urology Routine 12/28/24 12:50 Consult Infectious Diseases Routine Procedures Performed Operation Date: 12/25/24 21:00 Actual Procedures p Ureteral Stent Insertion-Bilateral Cystoscopy Retrograde(Bilateral) - Tristin Sumner MD Diagnostic Imagining Performed 12/20/24 17:56 US venous doppler LE BI Stat 12/21/24 11:50 CT angio chest PE protocol Stat 12/23/24 14:56 US renal/blad retro comp Routine 12/25/24 09:03 CT abd pelvis wo con Routine 12/25/24 19:17 FL retrograde includes kub Routine 12/30/24 11:32 US venous doppler UE LT Stat Discharge Instructions Given to Patient (Per Discharging Provider) You are seen in the hospital for anemia, kidney injury, complicated urinary tract infection, and dyspnea. You were initially suspected to have a combination of a infection and kidney injury from infection. On further evaluation you were found to have bilateral kidney stones with an obstructive kidney injury. You have been continued on an antibiotic, Augmentin. Please continue Augmentin by mouth twice daily while at rehab. If your kidney function improves to a creatinine clearance greater than 30 the dose of this medication will need to be increased. Please discuss this with your rehab provider. Your urine cultures grew out a bacteria called Klebsiella, 2 different strains of this both of which were sensitive to this antibiotic. You had bilateral ureteral stents placed by urology during admission. You will have outpatient follow-up scheduled for removal of the stents. Your Augmentin above should be extended if needed to cover a few days past whenever the stents are removed, or until 01/08/2025 whichever is longer. You are having significant diuresis without medications following stent placement. Your creatinine was rapidly improving but not yet normal. Your potassium levels were still intermittently elevated but responded well to a medication called Lokelma. Please have your potassium levels checked daily and if they are elevated take a dose of Lokelma. If your potassium levels are consistently increasing or do not respond to Lokelma you may need to return to the hospital for further treatment. Your case was discussed with nephrology prior to discharge we will see you in follow-up. You are found to have a concerning area suspicious for breast cancer with a bony metastasis. Follow-up for biopsies and further evaluation is being scheduled with [facility]. You were found to have iron deficiency anemia during admission. You received iron supplementation. You received 3 doses of IV iron while inpatient. Please continue oral iron supplementation on discharge. Your hemoglobin levels (blood levels) were stable at time of discharge. You had a RIGHT ARM DVT (blood clot) during admission. You have been started on eliquis. Please take eliquis 10mg by mouth twice daily for 1 week, then switch to 5mg twice daily by mouth indefiniately. This is a blood thinner. This replaced the Xarelto you were on previously. If you develop any new or worsening symptoms including fever, chills, sweats, chest pain, chest pressure, difficulty breathing, uncontrolled nausea/vomiting, rash, wheezing, passing out or nearly passing out, bleeding, black/bloody bowel movements, or other new or concerning symptoms please call your primary care physician, or call 911 for re-evaluation in the emergency department if you are very concerned. Total Time Total Time Spent Total Time Spent (In Minutes): Time spend day of discharge 65 minutes including direct patient care, documentation, review of labs and images, and coordination of care. Coding Level of Care Code 94794 INP/OBS DISCH >30 MIN Diagnoses Dyspnea on exertion R06.09 Dyspnea type: dyspnea on exertion Iron deficiency E61.1 Blood loss anemia D50.0 Hypertension I10 CKD (chronic kidney disease) N18.9
--- NOTE | 2024-12-30 14:24 | Ultrasound Report ---
ULTRASOUND LEFT UPPER EXTREMITY VENOUS CLINICAL HISTORY: Swelling. COMPARISON STUDY: None. TECHNIQUE: Real-time, grayscale, and color Doppler sonography of the deep veins of the left upper ext remity is performed. Compression and augmentation were utilized. FINDINGS: Thrombus is present in the basilic and cephalic veins. No other evidence of DVT seen at the left upper extremity. IMPRESSION: DVT in the basilic and cephalic veins. ACT 112: Act 112:Negative or not required by law. Electronically signed by: Jose Cheek M.D. 12/30/2024 2:23 PM
[2024-12-30 15:19] LABS: Calcium 8.6 mg/dl (8.6-10.3); Creatinine Clr Calc Pharmacy 26.9 ml/min; Potassium 5.3 mmol/L (3.5-5.1)
[2024-12-30] MEDS: APIXABAN 5 MG TABLET PO ONE (16:50)
[2024-12-31] MEDS ORDERED: APIXABAN 5 MG TABLET PO SCH (09:00)
--- NOTE | 2024-12-31 13:32 | Anesthesiology Progress Note ---
Date of Service December 31, 2024 Anesthesia Post Procedure Pain Intensity Right Hip: Pain Intensity: 7 Transfer of Care Handoff Completed per policy Notes Mental Status: alert / awake / arousable Patient Amnestic to Procedure: Yes Nausea / Vomiting: adequately controlled Pain: adequately controlled Airway Patency, RR, SpO2: stable & adequate BP & HR: stable & adequate Hydration State: stable & adequate Anesthetic Complications: no major complications apparent
== END 2024-12-30 18:30 | DRG 987 ==
LOC: ED 15:55 → 2N 18:42 → SUATTDRO 18:42 → 2N 21:02 → 1E 12-25 21:21 → 2S 12-26 18:44